=== PATIENT | male | born 1935 | race Caucasian/White ===

== ENCOUNTER 2020-10-28 10:35 | Inpatient (IN) | payer MEDICARE ==
[2020-10-28 10:56] LABS: Basophils % (A) 0 %; Eosinophils # (A) 0.1 k/uL (0-0.7); Eosinophils % (A) 1 %; HGB 13.8 gm/dL (13.0-17.5); Lymphocytes # (A) 0.7 k/uL (1.0-4.8); Lymphocytes % (A) 6 %; MCH 32.3 pg (25.0-35.0); MCHC 34.4 g/dL (31.0-37.0); Mean Platelet Volume 7.6; Monocytes # (A) 0.3 k/uL (0-1.0); Monocytes % (A) 3 %; Neutrophils # (A) 11.1 k/uL (1.3-7.7); Neutrophils % (A) 90 %; Platelet Count 157 k/uL (150-450); RBC 4.26 m/uL (4.30-5.90); RDW 12.5 % (11.5-15.5); WBC 12.3 k/uL (3.8-10.6)
--- NOTE | 2020-10-28 11:07 | XR ---
EXAMINATION TYPE: XR chest 2V DATE OF EXAM: 10/28/2020 COMPARISON: None INDICATION: Cough, pain TECHNIQUE: Frontal and lateral views of the chest are obtained. FINDINGS: The heart size is borderline in size. The pulmonary vasculature is normal. There is a posterior infiltrate likely on the left. Upper lung bhakta appear clear. IMPRESSION: 1. Posterior infiltrate most likely on the left. 2. Mild cardiomegaly
[2020-10-28 11:12] LABS: Albumin 4.1 g/dL (3.5-5.0); Calcium 8.8 mg/dL (8.4-10.2); Potassium 4.9 mmol/L (3.5-5.1); Total Bilirubin 1.5 mg/dL (0.2-1.3); Total Protein 7.2 g/dL (6.3-8.2)
[2020-10-28] MEDS ORDERED: AZITHROMYCIN 500 MG in SODIUM CHLORIDE 0.9% 250 ML IVPB STA (11:54)
[2020-10-28] MEDS ORDERED: cefTRIAXone IN SWFI 1,000 MG/10 ML SYRINGE IVP STA (11:54)
--- NOTE | 2020-10-28 12:12 | ED ---
SOB HPI - General Chief Complaint: Shortness of Breath Stated Complaint: YODIT Source: patient, EMS Mode of arrival: EMS Limitations: no limitations - History of Present Illness Initial Comments: The patient is an 84-year-old male with past medical history of diabetes, coronary artery disease with bypass, paroxysmal A. fib on Ahlquist who presents emergency Department with reported shortness of breath. The patient states for the past couple of days he's had a nonproductive cough. He had difficulty sleeping tonight. Awoke around 3 AM and was short of breath. He states he d rove himself to [facility]. The patient reportedly had an elevated troponin level and was found to have a possible exacerbation of heart failure. They did give him some Lasix and nitro. His oxygenation upon initial presentation was 80 which improved to 93% on 3 L. Patient is normally does not require oxygen. Denies having any chest pain. No fevers or chills. Cough has continued to be nonproductive. No sick contacts with similar symptoms. Patient was cold and negative at [facility]. No other alleviating, precipitating or modifying factors - Related Data Home Medications Medication Instructions Recorded Confirmed Apixaban [Eliquis] 5 mg PO BID 10/28/20 10/28/20 Furosemide [Lasix] 20 mg PO DAILY 10/28/20 10/28/20 Losartan/Hydrochlorothiazide 1 tab PO DAILY 10/28/20 10/28/20 [Losartan-Hctz 100-25 mg Tab] Metoprolol Tartrate [Lopressor] 50 mg PO BID 10/28/20 10/28/20 Multivitamins, Thera [Multivitamin 1 tab PO DAILY 10/28/20 10/28/20 (formulary)] Simvastatin [Zocor] 20 mg PO HS 10/28/20 10/28/20 amLODIPine [Norvasc] 5 mg PO DAILY 10/28/20 10/28/20 glipiZIDE [Glucotrol] 10 mg PO AC-BRKFST 10/28/20 10/28/20 Allergies Allergy/AdvReac Type Severity Reaction Status Date / Time No Known Allergies Allergy Verified 10/28/20 12:22 Review of Systems ROS Statement: Those systems with pertinent positive or pertinent negative responses have been documented in the HPI. ROS Other: All systems not noted in ROS Statement are negative. Past Medical History Past Medical History: Diabetes Mellitus History of Any Multi-Drug Resistant Organisms: None Reported Past Surgical History: No Surgical Hx Reported Past Psychological History: No Psychological Hx Reported Smoking Status: Never smoker Past Alcohol Use History: None Reported Past Drug Use History: None Reported General Exam Limitations: no limitations Course Vital Signs 10/28/20 10/28/20 10:37 12:35 Temperature 97.0 F L Pulse Rate 59 L 89 Respiratory 16 16 Rate Blood Pressure 155/58 145/65 O2 Sat by Pulse 97 98 Oximetry Procedures - [place] Protocol (Time Out) Nurse: Laurence Lora Medical Decision Making - Medical Decision Making Upon arrival the patient is placed into room 11. I did review the records from [facility]. I did repeat my own several laboratory studies which demonstrates a sodium of 131. Creatinine 1.96. Glucose 398. Troponin 0.069. BNP 1670. X-ray does demonstrate a posterior infiltrate most likely on the left. I did discuss results the patient. I did cover him with a dose of Rocep hin and azithromycin because of his infiltrate. I did recommend hospital admission in order to trend his troponins which the patient agreed to. I will consult cardiology. Patient agreed to this. I will continue his Ahlquist. Patient remained in stable condition awaiting a bed on the floor - Lab Data Result diagrams: 10/28/20 10:48 10/28/20 10:48 Lab Results 10/28/20 10/28/20 10/28/20 Range/Units 10:48 10:48 10:48 WBC 12.3 H (3.8-10.6) k/uL RBC 4.26 L (4.30-5.90) m/uL Hgb 13.8 (13.0-17.5) gm/dL Hct 40.0 (39.0-53.0) % MCV 94.0 (80.0-100.0) fL MCH 32.3 (25.0-35.0) pg MCHC 34.4 (31.0-37.0) g/dL RDW 12.5 (11.5-15.5) % Plt Count 157 (150-450) k/uL MPV 7.6 Neutrophils % 90 % Lymphocytes % 6 % Monocytes % 3 % Eosinophils % 1 % Basophils % 0 % Neutrophils # 11.1 H (1.3-7.7) k/uL Lymphocytes # 0.7 L (1.0-4.8) k/uL Monocytes # 0.3 (0-1.0) k/uL Eosinophils # 0.1 (0-0.7) k/uL Basophils # 0.0 (0-0.2) k/uL Sodium 131 L (137-145) mmol/L Potassium 4.9 (3.5-5.1) mmol/L Chloride 101 (98-107) mmol/L Carbon Dioxide 20 L (22-30) mmol/L Anion Gap 10 mmol/L BUN 37 H (9-20) mg/dL Creatinine 1.96 H (0.66-1.25) mg/dL Est GFR (CKD-EPI)AfAm 35 (>60 ml/min/1.73 sqM) Est GFR (CKD-EPI)NonAf 31 (>60 ml/min/1.73 sqM) Glucose 398 H (74-99) mg/dL Calcium 8.8 (8.4-10.2) mg/dL Total Bilirubin 1.5 H (0.2-1.3) mg/dL AST 35 (17-59) U/L ALT 36 (4-49) U/L Alkaline Phosphatase 96 (38-126) U/L Troponin I 0.069 H* (0.000-0.034) ng/mL NT-Pro-B Natriuret Pep pg/mL Total Protein 7.2 (6.3-8.2) g/dL Albumin 4.1 (3.5-5.0) g/dL 10/28/20 Range/Units 10:48 WBC (3.8-10.6) k/uL RBC (4.30-5.90) m/uL Hgb (13.0-17.5) gm/dL Hct (39.0-53.0) % MCV (80.0-100.0) fL MCH (25.0-35.0) pg MCHC (31.0-37.0) g/dL RDW (11.5-15.5) % Plt Count (150-450) k/uL MPV Neutrophils % % Lymphocytes % % Monocytes % % Eosinophils % % Basophils % % Neutrophils # (1.3-7.7) k/uL Lymphocytes # (1.0-4.8) k/uL Monocytes # (0-1.0) k/uL Eosinophils # (0-0.7) k/uL Basophils # (0-0.2) k/uL Sodium (137-145) mmol/L Potassium (3.5-5.1) mmol/L Chloride (98-107) mmol/L Carbon Dioxide (22-30) mmol/L Anion Gap mmol/L BUN (9-20) mg/dL Creatinine (0.66-1.25) mg/dL Est GFR (CKD-EPI)AfAm (>60 ml/min/1.73 sqM) Est GFR (CKD-EPI)NonAf (>60 ml/min/1.73 sqM) Glucose (74-99) mg/dL Calcium (8.4-10.2) mg/dL Total Bilirubin (0.2-1.3) mg/dL AST (17-59) U/L ALT (4-49) U/L Alkaline Phosphatase (38-126) U/L Troponin I (0.000-0.034) ng/mL NT-Pro-B Natriuret Pep 1670 pg/mL Total Protein (6.3-8.2) g/dL Albumin (3.5-5.0) g/dL - EKG Data EKG Comments: EKG demonstrates a ventricularly paced rhythm. Rate of 60. Pacemaker captures appropriately. QRS 26. QTC of 522. Negative for sgarbossa criteria. Disposition Clinical Impression: Hypoxic, NSTEMI (non-ST elevated myocardial infarction), CAP (community acquired pneumonia), Congestive heart failure Disposition: ADMITTED IP TO THIS HOSP Condition: Stable Is patient prescribed a controlled substance at d/c from ED?: No Decision to Admit Reason: Admit from EC Decision Date: 10/28/20 Decision Time: 12:12
[2020-10-28] MEDS ORDERED: NALOXONE 0.4 MG/ML 1 ML VIAL IV PRN (12:14)
[2020-10-28] MEDS ORDERED: LOSARTAN-HCTZ 50-12.5 MG 1 EACH TAB PO SCH (15:00)
--- NOTE | 2020-10-28 15:01 | P.CRDCN ---
History of Present Illness History of present illness: HISTORY OF PRESENTING ILLNESS This is a pleasant 84-year-old male past medical history significant for paroxysmal atrial fibrillation on long-term anticoagulation status post cardioversion 2016, permanent pacemaker implantation ([employer]) secondary to complete heart block, coronary artery disease s/p 2V bypass grafting with AMBRIZ to LAD and radial artery to D1 2000, diabetes mellitus, hypertension, dyslipidemia, ischemic cardiomyopathy and chronic systolic heart failure. He fo llows in the office with Dr. Gallardo. We have been asked to see in consultation for elevated troponin. He states he woke up around 0300 with a dry cough and wheezing. It was persistent and bothersome until around 0500 he couldn't get any sleep so he decided to go to ER. He initially went to [facility] where he was COVID tested and it was negative. Labwork and xray revealed a mild troponin elevation and possible pneumonia prompting transfer here for further evaluation. DIAGNOSTICS EKG reveals ventricular paced rhythm. Chest xray posterior left infiltrate and cardiomegaly. Laboratory reviewed, CBC 12.3, hemoglobin 13.8, platelets 157, sodium 131, potassium 4.9, creatinine 1.96, troponin 0.069, proBNP 1670. Current cardiac medications include Eliquis 5 mg twice a day, Lasix 20 mg daily, losartan/hydrochlorothiazide 100/25 mg daily, Lopressor 50 mg twice a day, simvastatin 20 mg at bedtime and amlodipine 5 mg daily. Most recent stress test in the office August 2020 was negative for reversible cardiac ischemia with ejection fraction of 55%. Most recent echo in the office 2017 revealed impaired LV systolic function with ejection fraction 40%, hypokinesia of the inferior wall from the mid wall to the apex, hypokinesia of the anterior septum, mild to moderate TR, mild pulmonary h ypertension and mild to moderate MR. REVIEW OF SYSTEMS At the time of my exam: CONSTITUTIONAL: Denies fever or chills. CARDIOVASCULAR: Denies chest pain, shortness of breath, orthopnea, PND or palpit ations. RESPIRATORY: Complains of cough. GASTROINTESTINAL: Denies abdominal pain, diarrhea, constipation, nausea or vomiting. MUSCULOSKELETAL: Denies myalgias. NEUROLOGIC: Denies numbness, tingling or weakness. ENDOCRINE: Complains of fatigue. Denies weight change, polydipsia or polyurina. GENITOURINARY: Denies burning, hematuria or urgency with micturation. HEMATOLOGIC: Denies history of anemia or bleeding. PHYSICAL EXAMINATION Blood pressure 145/65 heart rate 89 afebrile and maintaining oxygen saturation on nasal cannula. CONSTITUTIONAL: No apparent distress. HEENT: Head is normocephalic. Pupils are equal, round. Sclerae anicteric. Mucous membranes of the mouth are moist. No JVD. No carotid bruit. CHEST EXAMINATION: Bibasilar rales No chest wall tenderness is noted on palpation or with deep breathing. HEART EXAMINATION: Regular rate and rhythm. S1, S2 heard. Systolic ejection mu rmur at the left sternal border, no gallops or rub. ABDOMEN: Soft, nontender. Positive bowel sounds. EXTREMITIES: 2+ peripheral pulses, no lower extremity edema and no calf tenderness. NEUROLOGIC EXAMINATION: Patient is awake, alert and oriented x3. ASSESSMENT Pneumonia Leukocytosis Troponin elevation, does not appear to be due to primary myocardial injury. Acute kidney injury Hypertension Mild acute exacerbation of chronic systolic heart failure Ischemic cardiomyopathy Complete heart block s/p permanent pacemaker implantation Coronary artery disease s/p bypass grafting 2000 Dyslipidemia Diabetes mellitus Paroxysmal atrial fibrillation on eliquis, currently in sinus rhythm PLAN Obtain 2D echocardiogram and doppler study to assess cardiac structure and function. Hold losartan/hctz pending repeat renal function tomorrow. Continue oral diuretics. Further recommendations to follow based on clinical course. Thank you kindly for this consultation. Nurse Practitioner note has been reviewed, I agree with a documented findings and plan of care. Patient was seen and examined. Past Medical History Past Medical History: Diabetes Mellitus History of Any Multi-Drug Resistant Organisms: None Reported Past Surgical History: No Surgical Hx Reported Past Psychological History: No Psychological Hx Reported Smoking Status: Never smoker Past Alcohol Use History: None Reported Past Drug Use History: None Reported Medications and Allergies Home Medications Medication Instructions Recorded Confirmed Type Apixaban [Eliquis] 5 mg PO BID 10/28/20 10/28/20 History Furosemide [Lasix] 20 mg PO DAILY 10/28/20 10/28/20 History Losartan/Hydrochlorothiazide 1 tab PO DAILY 10/28/20 10/28/20 History [Losartan-Hctz 100-25 mg Tab] Metoprolol Tartrate [Lopressor] 50 mg PO BID 10/28/20 10/28/20 History Multivitamins, Thera [Multivitamin 1 tab PO DAILY 10/28/20 10/28/20 History (formulary)] Simvastatin [Zocor] 20 mg PO HS 10/28/20 10/28/20 History amLODIPine [Norvasc] 5 mg PO DAILY 10/28/20 10/28/20 History glipiZIDE [Glucotrol] 10 mg PO AC-BRKFST 10/28/20 10/28/20 History Allergies Allergy/AdvReac Type Severity Reaction Status Date / Time No Known Allergies Allergy Verified 10/28/20 12:22 Physical Exam Vitals: Vital Signs Temp Pulse Resp BP Pulse Ox 10/28/20 12:35 89 16 145/65 98 10/28/20 10:37 97.0 F L 59 L 16 155/58 97 Intake and Output 10/27/20 10/28/20 10/28/20 22:59 06:59 14:59 Other: Weight 81.647 kg Results 10/28/20 10:48 10/28/20 10:48 Cardiac Enzymes 10/28/20 10/28/20 Range/Units 10:48 10:48 AST 35 (17-59) U/L Troponin I 0.069 H* (0.000-0.034) ng/mL CBC 10/28/20 Range/Units 10:48 WBC 12.3 H (3.8-10.6) k/uL RBC 4.26 L (4.30-5.90) m/uL Hgb 13.8 (13.0-17.5) gm/dL Hct 40.0 (39.0-53.0) % Plt Count 157 (150-450) k/uL Comprehensive Metabolic Panel 10/28/20 Range/Units 10:48 Sodium 131 L (137-145) mmol/L Potassium 4.9 (3.5-5.1) mmol/L Chloride 101 (98-107) mmol/L Carbon Dioxide 20 L (22-30) mmol/L BUN 37 H (9-20) mg/dL Creatinine 1.96 H (0.66-1.25) mg/dL Glucose 398 H (74-99) mg/dL Calcium 8.8 (8.4-10.2) mg/dL AST 35 (17-59) U/L ALT 36 (4-49) U/L Alkaline Phosphatase 96 (38-126) U/L Total Protein 7.2 (6.3-8.2) g/dL Albumin 4.1 (3.5-5.0) g/dL Current Medications Generic Name Dose Route Start Last Admin Trade Name Freq PRN Reason Stop Dose Admin Naloxone HCl 0.2 mg 10/28/20 12:14 Naloxone 0.4 Mg/Ml 1 Ml Vial IV Q2M PRN Opioid Reversal Intake and Output 10/27/20 10/28/20 10/28/20 22:59 06:59 14:59 Other: Weight 81.647 kg Patient Weight 10/29/20 06:59 Weight 81.647 kg 10/28/20 10:48 10/28/20 10:48
[2020-10-28] MEDS: amLODIPine 5 MG TAB PO SCH (15:25)
[2020-10-28] MEDS: FUROSEMIDE 20 MG TAB PO SCH (15:25)
--- NOTE | 2020-10-28 18:00 | ECHOF ---
Referral Reason:sob, trop elev MEASUREMENTS -------- HEIGHT: 182.9 cm WEIGHT: 81.6 kg BP: 145/65 RVIDd: 3.4 cm (< 3.3) IVSd: 1.1 cm (0.6 - 1.1) LVIDd: 5.3 cm (3.9 - 5.3) LVPWd: 1.2 cm (0.6 - 1.1) IVSs: 1.9 cm LVIDs: 2.9 cm LVPWs: 1.9 cm LA Diam: 4.3 cm (2.7 - 3.8) LAESV Index (A-L): 28.34 ml/m Ao Diam: 3.7 cm (2.0 - 3.7) AV Cusp: 2.0 cm (1.5 - 2.6) MV EXCURSION: 19.089 mm (> 18.000) MV EF SLOPE: 72 mm/s (70 - 150) EPSS: 0.9 cm RAP: 5.00 mmHg RVSP: 31.23 mmHg FINDINGS -------- This was a technically adequate study. The left ventricular size is normal. There is borderline concentric left ventricular hypertrophy. Overall left ventricular systolic function is normal with, an EF between 60 - 65 %. The right ventricle is mildly enlarged. Normal LA size by volume 22+/-6 ml/m2. The right atrium is normal in size. Interatrial and interventricular septum intact. The aortic valve is trileaflet and appears structurally normal. The mitral valve leaflets are mildly thickened. Mild mitral annular calcification present. Mild tricuspid regurgitation present. Right ventricular systolic pressure is normal at < 35 mmHg. Trace/mild (physiologic) pulmonic regurgitation. The aortic root size is normal. Normal inferior vena cava with normal inspiratory collapse consistent with estimated right atrial pre ssure of 5 mmHg. There is no pericardial effusion. CONCLUSIONS -------- 1. The left ventricular size is normal. 2. There is borderline concentric left ventricular hypertrophy. 3. Overall left ventricular systolic function is normal with, an EF between 60 - 65 %. 4. The right ventricle is mildly enlarged. 5. Normal LA size by volume 22+/-6 ml/m2. 6. The aortic valve is trileaflet and appears structurally normal. 7. The mitral valve leaflets are mildly thickened. 8. Mild mitral annular calcification present. 9. Mild tricuspid regurgitation present. 10. Trace/mild (physiologic) pulmonic regurgitation. 11. There is no pericardial effusion. STARCHMAKER: Yeny Arriaza RDCS
[2020-10-28 21:17] LABS: Glucose,Whole Blood 563 mg/dL (75-99)
[2020-10-28 21:17] LABS: Glucose,Whole Blood 540 mg/dL (75-99)
[2020-10-28] MEDS: ATORVASTATIN 10 MG TAB PO SCH (21:33)
[2020-10-28] MEDS: APIXABAN 5 MG TAB PO SCH (21:33)
[2020-10-28] MEDS: METOPROLOL TARTRATE 50 MG TAB PO SCH (21:33)
[2020-10-28] MEDS: INSULIN REGULAR 100 UNIT in SODIUM CHLORIDE 0.9% 100 ML IV SCH (23:22)
[2020-10-28 23:33] LABS: Glucose,Whole Blood 515 mg/dL (75-99)
[2020-10-29 00:04] LABS: Glucose,Whole Blood 458 mg/dL (75-99)
[2020-10-29 00:32] LABS: Glucose,Whole Blood 331 mg/dL (75-99)
[2020-10-29 01:15] LABS: Glucose,Whole Blood 229 mg/dL (75-99)
[2020-10-29 02:44] LABS: Glucose,Whole Blood 128 mg/dL (75-99)
[2020-10-29 03:06] LABS: Glucose,Whole Blood 93 mg/dL (75-99)
[2020-10-29 04:16] LABS: Glucose,Whole Blood 166 mg/dL (75-99)
[2020-10-29 05:33] LABS: Glucose,Whole Blood 197 mg/dL (75-99)
[2020-10-29 06:00] LABS: Glucose,Whole Blood 245 mg/dL (75-99)
[2020-10-29 07:05] LABS: Glucose,Whole Blood 254 mg/dL (75-99)
[2020-10-29 08:05] LABS: Glucose,Whole Blood 273 mg/dL (75-99)
[2020-10-29 08:20] LABS: Potassium 4.1 mmol/L (3.5-5.1)
[2020-10-29 08:33] LABS: Basophils % (A) 0 %; Eosinophils % (A) 0 %; HGB 12.4 gm/dL (13.0-17.5); Lymphocytes # (A) 1.1 k/uL (1.0-4.8); Lymphocytes % (A) 7 %; MCH 33.1 pg (25.0-35.0); MCHC 35.3 g/dL (31.0-37.0); MCV 93.6 fL (80.0-100.0); Monocytes # (A) 0.6 k/uL (0-1.0); Monocytes % (A) 4 %; Neutrophils # (A) 13.1 k/uL (1.3-7.7); Neutrophils % (A) 88 %; Platelet Count 158 k/uL (150-450); RBC 3.74 m/uL (4.30-5.90); RDW 12.6 % (11.5-15.5); WBC 14.9 k/uL (3.8-10.6)
[2020-10-29 09:03] LABS: Glucose,Whole Blood 382 mg/dL (75-99)
[2020-10-29] MEDS: FUROSEMIDE 20 MG TAB PO SCH (09:33)
[2020-10-29] MEDS: amLODIPine 5 MG TAB PO SCH (09:33)
[2020-10-29] MEDS: APIXABAN 5 MG TAB PO SCH ×2 (09:33→21:02)
[2020-10-29] MEDS: METOPROLOL TARTRATE 50 MG TAB PO SCH ×2 (09:33→21:02)
--- NOTE | 2020-10-29 10:57 | P.PN ---
Subjective HISTORY OF PRESENTING ILLNESS This is a pleasant 84-year-old male past medical history significant for paroxysmal atrial fibrillation on long-term anticoagulation status post cardioversion 2016, permanent pacemaker implantation ([employer]) secondary to complete heart block, coronary artery disease s/p 2V bypass grafting with AMBRIZ to LAD and radial artery to D1 2000, diabetes mellitus, hypertension, dyslipidemia, ischemic cardiomyopathy and chronic systolic heart failure. He follows in the office with Dr. Gallardo. He is seen and examined sitting up in bed in no acute distress. She continues to have a mild dry cough however this impr arcelia since admission. He denies any worsening or ongoing shortness of breath. He has no chest pain, dizziness or palpitations. Echocardiogram obtained reveals preserved LV systolic function with ejection fraction 60-65%. Blood pressure 120/58 heart rate 61 afebrile maintaining oxygen saturation on nasal cannula. Laboratory data reviewed, WBC 14.9, hemoglobin 12.4, platelets 158, sodium 133, potassium 4.1, creatinine 2.31. Blood sugars have been elevated and he has been initiated on an insulin infusion per the primary care team. PHYSICAL EXAMINATION CONSTITUTIONAL: No apparent distress. HEENT: Head is normocephalic. Pupils are equal, round. Sclerae anicteric. Mucous membranes of the mouth are moist. No JVD. No carotid bruit. CHEST EXAMINATION: Bibasilar rales No chest wall tenderness is noted on palpation or with deep breathing. HEART EXAMINATION: Regular rate and rhythm. S1, S2 heard. Systolic ejection murmur at the left sternal border, no gallops or rub. EXTREMITIES: 2+ peripheral pulses, no lower extremity edema and no calf tenderness. ASSESSMENT Pneumonia Leukocytosis Troponin elevation, does not appear to be due to primary myocardial injury. Acute kidney injury Hypertension Mild acute exacerbation of chronic systolic heart failure Ischemic cardiomyopathy Complete heart block s/p permanent pacemaker implantation Coronary artery disease s/p bypass grafting 2000 Dyslipidemia Diabetes mellitus Paroxysmal atrial fibrillation on eliquis, currently in sinus rhythm PLAN Repeat chest x-ray to reevaluate infiltrate in the lungs. Follow-up renal function in the morning. Nurse Practitioner note has been reviewed, I agree with a documented findings and plan of care. Patient was seen and examined. Objective - Vital Signs Vital signs: Vital Signs Temp 98.1 F 10/29/20 00:00 Pulse 61 10/29/20 04:00 Resp 20 10/29/20 04:00 BP 120/58 10/29/20 04:00 Pulse Ox 95 10/29/20 04:00 Intake & Output 10/28/20 10/29/20 10/29/20 18:59 06:59 18:59 Intake Total 56.560 18.954 Output Total 400 Balance -343.440 18.954 Weight 81.647 kg 85.3 kg Intake: Intake, IV Titration 56.560 18.954 Amount Insulin Regular 100 unit 56.560 18.954 In Sodium Chloride 0.9% 100 ml @ Titrate IV .Q0M [facility] Rx#:[id number] Output: Urine 400 - Labs CBC & Chem 7: 10/29/20 07:29 10/29/20 07:29 Labs: Abnormal Lab Results - Last 24 Hours (Table) 10/28/20 10/28/20 10/28/20 Range/Units 10:48 10:48 10:48 WBC 12.3 H (3.8-10.6) k/uL RBC 4.26 L (4.30-5.90) m/uL Hgb (13.0-17.5) gm/dL Hct (39.0-53.0) % Neutrophils # 11.1 H (1.3-7.7) k/uL Lymphocytes # 0.7 L (1.0-4.8) k/uL Sodium 131 L (137-145) mmol/L Carbon Dioxide 20 L (22-30) mmol/L BUN 37 H (9-20) mg/dL Creatinine 1.96 H (0.66-1.25) mg/dL Glucose 398 H (74-99) mg/dL POC Glucose (mg/dL) (75-99) mg/dL Total Bilirubin 1.5 H (0.2-1.3) mg/dL Troponin I 0.069 H* (0.000-0.034) ng/mL Procalcitonin (0.02-0.09) ng/mL 10/28/20 10/28/20 10/28/20 Range/Units 10:48 15:18 18:32 WBC (3.8-10.6) k/uL RBC (4.30-5.90) m/uL Hgb (13.0-17.5) gm/dL Hct (39.0-53.0) % Neutrophils # (1.3-7.7) k/uL Lymphocytes # (1.0-4.8) k/uL Sodium (137-145) mmol/L Carbon Dioxide (22-30) mmol/L BUN (9-20) mg/dL Creatinine (0.66-1.25) mg/dL Glucose (74-99) mg/dL POC Glucose (mg/dL) (75-99) mg/dL Total Bilirubin (0.2-1.3) mg/dL Troponin I 0.061 H* 0.068 H* (0.000-0.034) ng/mL Procalcitonin 0.12 H (0.02-0.09) ng/mL 10/28/20 10/28/20 10/28/20 Range/Units 21:06 21:08 23:22 WBC (3.8-10.6) k/uL RBC (4.30-5.90) m/uL Hgb (13.0-17.5) gm/dL Hct (39.0-53.0) % Neutrophils # (1.3-7.7) k/uL Lymphocytes # (1.0-4.8) k/uL Sodium (137-145) mmol/L Carbon Dioxide (22-30) mmol/L BUN (9-20) mg/dL Creatinine (0.66-1.25) mg/dL Glucose (74-99) mg/dL POC Glucose (mg/dL) 563 H 540 H 515 H (75-99) mg/dL Total Bilirubin (0.2-1.3) mg/dL Troponin I (0.000-0.034) ng/mL Procalcitonin (0.02-0.09) ng/mL 10/29/20 10/29/20 10/29/20 Range/Units 00:01 00:30 01:02 WBC (3.8-10.6) k/uL RBC (4.30-5.90) m/uL Hgb (13.0-17.5) gm/dL Hct (39.0-53.0) % Neutrophils # (1.3-7.7) k/uL Lymphocytes # (1.0-4.8) k/uL Sodium (137-145) mmol/L Carbon Dioxide (22-30) mmol/L BUN (9-20) mg/dL Creatinine (0.66-1.25) mg/dL Glucose (74-99) mg/dL POC Glucose (mg/dL) 458 H 331 H 229 H (75-99) mg/dL Total Bilirubin (0.2-1.3) mg/dL Troponin I (0.000-0.034) ng/mL Procalcitonin (0.02-0.09) ng/mL 10/29/20 10/29/20 10/29/20 Range/Units 02:15 04:12 05:12 WBC (3.8-10.6) k/uL RBC (4.30-5.90) m/uL Hgb (13.0-17.5) gm/dL Hct (39.0-53.0) % Neutrophils # (1.3-7.7) k/uL Lymphocytes # (1.0-4.8) k/uL Sodium (137-145) mmol/L Carbon Dioxide (22-30) mmol/L BUN (9-20) mg/dL Creatinine (0.66-1.25) mg/dL Glucose (74-99) mg/dL POC Glucose (mg/dL) 128 H 166 H 197 H (75-99) mg/dL Total Bilirubin (0.2-1.3) mg/dL Troponin I (0.000-0.034) ng/mL Procalcitonin (0.02-0.09) ng/mL 10/29/20 10/29/20 10/29/20 Range/Units 05:54 07:02 07:29 WBC 14.9 H (3.8-10.6) k/uL RBC 3.74 L (4.30-5.90) m/uL Hgb 12.4 L (13.0-17.5) gm/dL Hct 35.0 L (39.0-53.0) % Neutrophils # 13.1 H (1.3-7.7) k/uL Lymphocytes # (1.0-4.8) k/uL Sodium (137-145) mmol/L Carbon Dioxide (22-30) mmol/L BUN (9-20) mg/dL Creatinine (0.66-1.25) mg/dL Glucose (74-99) mg/dL POC Glucose (mg/dL) 245 H 254 H (75-99) mg/dL Total Bilirubin (0.2-1.3) mg/dL Troponin I (0.000-0.034) ng/mL Procalcitonin (0.02-0.09) ng/mL 10/29/20 10/29/20 10/29/20 Range/Units 07:29 08:01 09:01 WBC (3.8-10.6) k/uL RBC (4.30-5.90) m/uL Hgb (13.0-17.5) gm/dL Hct (39.0-53.0) % Neutrophils # (1.3-7.7) k/uL Lymphocytes # (1.0-4.8) k/uL Sodium 133 L (137-145) mmol/L Carbon Dioxide (22-30) mmol/L BUN 57 H (9-20) mg/dL Creatinine 2.31 H (0.66-1.25) mg/dL Glucose 237 H (74-99) mg/dL POC Glucose (mg/dL) 273 H 382 H (75-99) mg/dL Total Bilirubin (0.2-1.3) mg/dL Troponin I (0.000-0.034) ng/mL Procalcitonin (0.02-0.09) ng/mL
[2020-10-29 11:55] LABS: Glucose,Whole Blood 164 mg/dL (75-99)
[2020-10-29] MEDS: INSULIN REGULAR 100 UNIT in SODIUM CHLORIDE 0.9% 100 ML IV SCH (13:01)
--- NOTE | 2020-10-29 13:03 | XR ---
EXAMINATION TYPE: XR chest 2V DATE OF EXAM: 10/29/2020 COMPARISON: Chest x-ray from yesterday. HISTORY: Cough. TECHNIQUE: Frontal and lateral views of the chest are obtained. FINDINGS: There is chronic parenchymal change with improved retrocardiac opacity seen best on latera l view. Persistent small tiny right greater than left pleural effusions. Overlying sternal wires and mediastinal clips. Persistent cardiomegaly with dual lead pacemaker. Osseous structures remain demine ralized. IMPRESSION: Chronic changes and cardiomegaly with improving left lower lobe acute infiltrate. Stabl e small to tiny bilateral pleural effusions. No new infiltrate.
[2020-10-29 15:17] LABS: Glucose,Whole Blood 187 mg/dL (75-99)
[2020-10-29 17:13] LABS: Glucose,Whole Blood 221 mg/dL (75-99)
[2020-10-29] MEDS: INSULIN ASPART (NovoLOG) 100 UNIT/ML VIAL SQ SCH ×2 (17:52→21:03)
[2020-10-29 20:23] LABS: Glucose,Whole Blood 300 mg/dL (75-99)
[2020-10-29] MEDS: ATORVASTATIN 10 MG TAB PO SCH (21:03)
--- NOTE | 2020-10-29 22:06 | P.HPIM ---
History of Present Illness H&P Date: 10/29/20 Chief Complaint: short of breath History of presenting complaint: This is a pleasant 84-year-old patient of Dr. Shoaib Coreas. Chronic stable medical conditions include atrial fibrillation diabetes, coronary artery disease with bypass and a permanent pacemaker. Patient's last to 3 days been having a dry cough with wheezing. Patient woke up around 3 AM short of breath and [place] to [facility]. He'll is some bump in troponin and was felt to be in CHF patient is given Lasix and nitro his pulse ox was 80% which improved to 93% on 3 L. And he was sent down here for further workup. Denies any fever and chills. No edema. No chest pain. Appetite is fair. Review of systems: GEN.: Tired EYES: None HEENT: None NECK: None RESPIRATORY: As above CARDIOVASCULAR: None GASTROINTESTINAL: None GENITOURINARY: None MUSCULOSKELETAL: None LYMPHATICS: None HEMATOLOGICAL: None PSYCHIATRY: None NEUROLOGICAL: None Past medical history to include: Coronary artery disease with bypass, atrial fibrillation, diabetes, pacemaker Social history: Does not smoke or drink alcohol. Lives alone. Retired system validation engineer. For [employer] Physical examination: VITAL SIGNS: 97, 59, 16, 155/58, 97% on 3 L GENERAL: BMI 25.5, sitting up in bed, bit tired. EYES: Pupils equal. Conjunctiva normal. HEENT: External appearance of nose and ears normal, oral cavity grossly normal. NECK: JVD not raised; masses not palpable. HEART: First and second heart sounds are normal; no edema. LUNGS: Respiratory rate increased, decreased breath sounds. ABDOMEN: Soft, nontender, liver spleen not palpable, no masses palpable. PSYCH: Alert and oriented x3; mood and affect normal. NEUROLOGICAL: Cranial nerves grossly intact; no facial asymmetry, power and sensation grossly intact. LYMPHATICS: No lymph nodes palpable in the axilla and neck INVESTIGATIONS, reviewed in the clinical context: White count 12.3 hemoglobin 13.8 platelets 157 potassium 4.9 creatinine 1.96 Blood glucose 398 Accu-Cheks 540, 5.5 Troponin I 0.069, 0.061, 0.068 ProBNP 1670 Pro-calcitonin 0.12 EKG tracing personally reviewed by me-ventricular paced rhythm Chest x-ray film personally reviewed by me-shows infiltrates 2-D echocardiogram-EF 60-65% Assessment: -Pneumonia, suspect gram-negative orgasm -Coronary artery disease with a prior history of bypass -Paroxysmal atrial fibrillation, chronically on anticoagulation -Diabetes mellitus type 2 on oral hypoglycemic, uncontrolled with hyperglycemia -Troponin leak in the setting of chronic kidney disease. Doubt acute coronary syndrome -Suspect underlying chronic kidney disease -Doubt acute congestive heart failure. Plan: Patient be started on IV Zithromax and ceftriaxone. Home medications be continued. Oral hypoglycemics were held patient's pleural on a Regular Insulin drip. Cardiology was consulted. Care was discussed with the patient. We will check renal ultrasound, and a UA. Past Medical History Past Medical History: Atrial Fibrillation, Diabetes Mellitus History of Any Multi-Drug Resistant Organisms: None Reported Past Surgical History: Coronary Bypass/CABG, Pacemaker Past Anesthesia/Blood Transfusion Reactions: No Reported Reaction Type of Cardiac Device: Permanent Pacemaker Device Placement Date:: about 3 years ago Past Psychological History: No Psychological Hx Reported Smoking Status: Never smoker Past Alcohol Use History: None Reported Past Drug Use History: None Reported - Past Family History Mother Family Medical History: Myocardial Infarction ([place]) Father Family Medical History: Myocardial Infarction ([place]) Medications and Allergies Home Medications Medication Instructions Recorded Confirmed Type Apixaban [Eliquis] 5 mg PO BID 10/28/20 10/28/20 History Furosemide [Lasix] 20 mg PO DAILY 10/28/20 10/28/20 History Losartan/Hydrochlorothiazide 1 tab PO DAILY 10/28/20 10/28/20 History [Losartan-Hctz 100-25 mg Tab] Metoprolol Tartrate [Lopressor] 50 mg PO BID 10/28/20 10/28/20 History Multivitamins, Thera [Multivitamin 1 tab PO DAILY 10/28/20 10/28/20 History (formulary)] Simvastatin [Zocor] 20 mg PO HS 10/28/20 10/28/20 History amLODIPine [Norvasc] 5 mg PO DAILY 10/28/20 10/28/20 History glipiZIDE [Glucotrol] 10 mg PO AC-BRKFST 10/28/20 10/28/20 History Allergies Allergy/AdvReac Type Severity Reaction Status Date / Time No Known Allergies Allergy Verified 10/28/20 12:22 Physical Exam Vitals: Vital Signs Temp Pulse Pulse Resp BP BP Pulse Ox 10/29/20 04:00 61 20 120/58 95 10/29/20 01:39 62 18 10/29/20 00:00 98.1 F 62 18 149/50 95 10/28/20 20:00 98.3 F 60 18 144/65 97 10/28/20 18:10 98.7 F 60 20 152/68 97 10/28/20 12:35 89 16 145/65 98 10/28/20 10:37 97.0 F L 59 L 16 155/58 97 Intake and Output 10/28/20 10/29/20 10/29/20 22:59 06:59 14:59 Intake Total 56.560 18.954 Output Total 400 Balance -343.440 18.954 Intake: Intake, IV Titration 56.560 18.954 Amount Insulin Regular 100 unit 56.560 18.954 In Sodium Chloride 0.9% 100 ml @ Titrate IV .Q0M [facility] Rx#:[id number] Output: Urine 400 Other: Weight 81.647 kg 85.3 kg Results CBC & Chem 7: 10/29/20 07:29 10/29/20 07:29 Labs: Abnormal Lab Results - Last 24 Hours (Table) 10/28/20 10/28/20 10/28/20 Range/Units 10:48 10:48 10:48 WBC 12.3 H (3.8-10.6) k/uL RBC 4.26 L (4.30-5.90) m/uL Hgb (13.0-17.5) gm/dL Hct (39.0-53.0) % Neutrophils # 11.1 H (1.3-7.7) k/uL Lymphocytes # 0.7 L (1.0-4.8) k/uL Sodium 131 L (137-145) mmol/L Carbon Dioxide 20 L (22-30) mmol/L BUN 37 H (9-20) mg/dL Creatinine 1.96 H (0.66-1.25) mg/dL Glucose 398 H (74-99) mg/dL POC Glucose (mg/dL) (75-99) mg/dL Total Bilirubin 1.5 H (0.2-1.3) mg/dL Troponin I 0.069 H* (0.000-0.034) ng/mL Procalcitonin (0.02-0.09) ng/mL 10/28/20 10/28/20 10/28/20 Range/Units 10:48 15:18 18:32 WBC (3.8-10.6) k/uL RBC (4.30-5.90) m/uL Hgb (13.0-17.5) gm/dL Hct (39.0-53.0) % Neutrophils # (1.3-7.7) k/uL Lymphocytes # (1.0-4.8) k/uL Sodium (137-145) mmol/L Carbon Dioxide (22-30) mmol/L BUN (9-20) mg/dL Creatinine (0.66-1.25) mg/dL Glucose (74-99) mg/dL POC Glucose (mg/dL) (75-99) mg/dL Total Bilirubin (0.2-1.3) mg/dL Troponin I 0.061 H* 0.068 H* (0.000-0.034) ng/mL Procalcitonin 0.12 H (0.02-0.09) ng/mL 10/28/20 10/28/20 10/28/20 Range/Units 21:06 21:08 23:22 WBC (3.8-10.6) k/uL RBC (4.30-5.90) m/uL Hgb (13.0-17.5) gm/dL Hct (39.0-53.0) % Neutrophils # (1.3-7.7) k/uL Lymphocytes # (1.0-4.8) k/uL Sodium (137-145) mmol/L Carbon Dioxide (22-30) mmol/L BUN (9-20) mg/dL Creatinine (0.66-1.25) mg/dL Glucose (74-99) mg/dL POC Glucose (mg/dL) 563 H 540 H 515 H (75-99) mg/dL Total Bilirubin (0.2-1.3) mg/dL Troponin I (0.000-0.034) ng/mL Procalcitonin (0.02-0.09) ng/mL 10/29/20 10/29/20 10/29/20 Range/Units 00:01 00:30 01:02 WBC (3.8-10.6) k/uL RBC (4.30-5.90) m/uL Hgb (13.0-17.5) gm/dL Hct (39.0-53.0) % Neutrophils # (1.3-7.7) k/uL Lymphocytes # (1.0-4.8) k/uL Sodium (137-145) mmol/L Carbon Dioxide (22-30) mmol/L BUN (9-20) mg/dL Creatinine (0.66-1.25) mg/dL Glucose (74-99) mg/dL POC Glucose (mg/dL) 458 H 331 H 229 H (75-99) mg/dL Total Bilirubin (0.2-1.3) mg/dL Troponin I (0.000-0.034) ng/mL Procalcitonin (0.02-0.09) ng/mL 10/29/20 10/29/20 10/29/20 Range/Units 02:15 04:12 05:12 WBC (3.8-10.6) k/uL RBC (4.30-5.90) m/uL Hgb (13.0-17.5) gm/dL Hct (39.0-53.0) % Neutrophils # (1.3-7.7) k/uL Lymphocytes # (1.0-4.8) k/uL Sodium (137-145) mmol/L Carbon Dioxide (22-30) mmol/L BUN (9-20) mg/dL Creatinine (0.66-1.25) mg/dL Glucose (74-99) mg/dL POC Glucose (mg/dL) 128 H 166 H 197 H (75-99) mg/dL Total Bilirubin (0.2-1.3) mg/dL Troponin I (0.000-0.034) ng/mL Procalcitonin (0.02-0.09) ng/mL 10/29/20 10/29/20 10/29/20 Range/Units 05:54 07:02 07:29 WBC 14.9 H (3.8-10.6) k/uL RBC 3.74 L (4.30-5.90) m/uL Hgb 12.4 L (13.0-17.5) gm/dL Hct 35.0 L (39.0-53.0) % Neutrophils # 13.1 H (1.3-7.7) k/uL Lymphocytes # (1.0-4.8) k/uL Sodium (137-145) mmol/L Carbon Dioxide (22-30) mmol/L BUN (9-20) mg/dL Creatinine (0.66-1.25) mg/dL Glucose (74-99) mg/dL POC Glucose (mg/dL) 245 H 254 H (75-99) mg/dL Total Bilirubin (0.2-1.3) mg/dL Troponin I (0.000-0.034) ng/mL Procalcitonin (0.02-0.09) ng/mL 10/29/20 10/29/20 10/29/20 Range/Units 07:29 08:01 09:01 WBC (3.8-10.6) k/uL RBC (4.30-5.90) m/uL Hgb (13.0-17.5) gm/dL Hct (39.0-53.0) % Neutrophils # (1.3-7.7) k/uL Lymphocytes # (1.0-4.8) k/uL Sodium 133 L (137-145) mmol/L Carbon Dioxide (22-30) mmol/L BUN 57 H (9-20) mg/dL Creatinine 2.31 H (0.66-1.25) mg/dL Glucose 237 H (74-99) mg/dL POC Glucose (mg/dL) 273 H 382 H (75-99) mg/dL Total Bilirubin (0.2-1.3) mg/dL Troponin I (0.000-0.034) ng/mL Procalcitonin (0.02-0.09) ng/mL Thrombosis Risk Factor Assmnt - Choose All That Apply Each Factor Represents 1 point: Abnormal pulmonary function (COPD) Each Risk Factor Represents 3 Points: Age 75 years or older Thrombosis Risk Factor Assessment Total Risk Factor Score: 4 Thrombosis Risk Factor Assessment Level: Moderate Risk
[2020-10-29] MEDS: AZITHROMYCIN 500 MG TAB PO SCH (23:32)
[2020-10-30 03:23] LABS: Appearance,Urine Clear (Clear); Bilirubin,Urine Negative (Negative); Blood,Urine Negative (Negative); Color,Urine Light Yellow; Glucose,Urine (UA) Negative (Negative); Ketones,Urine Negative (Negative); Leukocyte Esterase,Urine Negative (Negative); Nitrite,Urine Negative (Negative); PH, Urine 5.5 (5.0-8.0); Protein,Urine Negative (Negative); Specific Gravity,Urine 1.014 (1.001-1.035); Urobilinogen,Urine <2.0 mg/dL (<2.0)
[2020-10-30 06:06] LABS: Glucose,Whole Blood 241 mg/dL (75-99)
[2020-10-30] MEDS: INSULIN ASPART (NovoLOG) 100 UNIT/ML VIAL SQ SCH ×4 (06:39→20:41)
--- NOTE | 2020-10-30 08:20 | US ---
EXAMINATION TYPE: US kidneys/renal and bladder DATE OF EXAM: 10/30/2020 COMPARISON: NONE CLINICAL HISTORY: chronic kidney disease. CKD EXAM MEASUREMENTS: Right Kidney: 11.0 x 5.3 x 5.1 cm Left Kidney: 11.2 x 5.5 x 5.1 cm Right Kidney: No evidence of hydro, simple appearing cyst lower pole= 3.2 x 2.0 x 3.1 cm Left Kidney: Lobulated contour, appeared wnl Bladder: Visualized appeared wnl Bilateral Jets seen: No IMPRESSION: 1. Inferior pole right renal cyst.
[2020-10-30] MEDS ORDERED: amLODIPine 5 MG TAB PO STA (09:26)
[2020-10-30 09:37] LABS: Calcium 9.4 mg/dL (8.4-10.2); Potassium 4.6 mmol/L (3.5-5.1)
[2020-10-30] MEDS: amLODIPine 5 MG TAB PO SCH (10:13)
[2020-10-30] MEDS: amLODIPine 10 MG TAB PO SCH (10:18)
[2020-10-30] MEDS: APIXABAN 5 MG TAB PO SCH ×2 (10:18→20:41)
[2020-10-30] MEDS: FUROSEMIDE 20 MG TAB PO SCH (10:18)
[2020-10-30] MEDS: METOPROLOL TARTRATE 50 MG TAB PO SCH ×2 (10:19→20:41)
[2020-10-30 11:54] LABS: Glucose,Whole Blood 324 mg/dL (75-99)
--- NOTE | 2020-10-30 12:08 | P.NPCON ---
History of Present Illness - Reason for Consult acute renal failure - History of Present Illness Reason for consultation: Acute kidney injury on chronic kidney disease History of present illness: Patient is a 84-year-old male seen in renal consultation for acute kidney injury on chronic kidney disease. Patient has chronic kidney disease stage IIIB with baseline creatinine 1.4-1.6. 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 Patient was last seen in the office in July 2017 and at that time his creatinine was near 1.4. He has not been seen in the office since then. Creatinine this admission has been in the range of 1.9-2.3. Patient presented to the hospital with shortness of breath. He does complain of a nonproductive cough. He's being treated for pneumonia. He denies any fever. No vomiting or diarrhea. Denies regular use of nonsteroidals. He is maintained on Lasix 20 mg orally once doimnga y. He does have long-standing history of diabetes mellitus. He was on losartan as well as hydrochlorothiazide which are held. No abdominal pain. No edema. Good urine output. No hematuria or dysuria. No abdominal pain. Blood pressure stable. Currently on room air. Vital signs are stable. General: The patient appeared well nourished and normally developed. HEENT: Head exam is unremarkable. Neck is without jugular venous distension. LUNGS: Breath sounds decreased. HEART: Rate and Rhythm are regular. ABDOMEN: Soft, nontender. EXTREMITITES: No edema. Past Medical History Past Medical History: Atrial Fibrillation, Diabetes Mellitus History of Any Multi-Drug Resistant Organisms: None Reported Past Surgical History: Coronary Bypass/CABG, Pacemaker Past Anesthesia/Blood Transfusion Reactions: No Reported Reaction Type of Cardiac Device: Permanent Pacemaker Device Placement Date:: about 3 years ago Past Psychological History: No Psychological Hx Reported Smoking Status: Never smoker Past Alcohol Use History: None Reported Past Drug Use History: None Reported - Past Family History Mother Family Medical History: Myocardial Infarction ([place]) Father Family Medical History: Myocardial Infarction ([place]) Medications and Allergies Home Medications Medication Instructions Recorded Confirmed Type Apixaban [Eliquis] 5 mg PO BID 10/28/20 10/28/20 History Furosemide [Lasix] 20 mg PO DAILY 10/28/20 10/28/20 History Losartan/Hydrochlorothiazide 1 tab PO DAILY 10/28/20 10/28/20 History [Losartan-Hctz 100-25 mg Tab] Metoprolol Tartrate [Lopressor] 50 mg PO BID 10/28/20 10/28/20 History Multivitamins, Thera [Multivitamin 1 tab PO DAILY 10/28/20 10/28/20 History (formulary)] Simvastatin [Zocor] 20 mg PO HS 10/28/20 10/28/20 History amLODIPine [Norvasc] 5 mg PO DAILY 10/28/20 10/28/20 History glipiZIDE [Glucotrol] 10 mg PO AC-BRKFST 10/28/20 10/28/20 History Allergies Allergy/AdvReac Type Severity Reaction Status Date / Time No Known Allergies Allergy Verified 10/28/20 12:22 Physical Exam Vitals: Vital Signs Temp Pulse Resp BP Pulse Ox 10/30/20 08:00 98.2 F 64 18 151/69 98 10/30/20 03:25 98.4 F 60 18 162/72 96 10/30/20 01:29 18 10/29/20 23:46 98.3 F 60 18 145/69 94 L 10/29/20 20:00 98.8 F 64 18 139/67 95 10/29/20 16:00 59 L 17 142/71 96 Intake and Output 10/29/20 10/30/20 10/30/20 22:59 06:59 14:59 Intake Total 240 Output Total 200 450 Balance 40 -450 Intake: Oral 240 Output: Urine 200 450 Other: Voiding Method Toilet Toilet Toilet Urinal Urinal Weight 85.3 kg Results - Lab Results Most recent lab results Calcium 9.4 mg/dL (8.4-10.2) 10/30/20 08:44 10/29/20 07:29 10/30/20 08:44 Assessment and Plan Plan: Assessment: 1. Acute kidney injury versus progression of underlying chronic kidney disease. Creatinine fairly stable at 2.01 this admission. UA benign. No evidence of hydronephrosis noted on kidney ultrasound. 2. Chronic kidney disease stage IIIB with baseline creatinine 1.4-1.6 from July 2017 secondary to diabetic kidney disease. 3. Pneumonia maintained on antibiotics. 4. Hypertension with chronic kidney disease. Stable. 5. Diabetes mellitus. 6. Hyponatremia secondary to chronic kidney disease and hyperglycemia. Better. Plan: Maintain Lasix 20 mg orally once daily. Avoid nephrotoxins. Continue to monitor renal function and urine output. Thank you for the consultation. I will continue to follow the patient with you during his hospital stay.
--- NOTE | 2020-10-30 13:26 | P.PN ---
Subjective HISTORY OF PRESENTING ILLNESS This is a pleasant 84-year-old male past medical history significant for paroxysmal atrial fibrillation on long-term anticoagulation status post cardioversion 2016, permanent pacemaker implantation ([employer]) secondary to complete heart block, coronary artery disease s/p 2V bypass grafting with AMBRIZ to LAD and radial artery to D1 2000, diabetes mellitus, hypertension, dyslipidemia, ischemic cardiomyopathy and chronic systolic heart failure. He follows in the office with Dr. Gallardo. He is seen and examined sitting up in bed in no acute distress. He states this morning while getting up to the bathroom and having breakfast he did have an episode of increased shortness of breath and wheezing. He denies chest pain, dizziness or palpitations. Currently maintained on IV antibiotics. Blood pressure 162/72 heart rate 68 afebrile maintaining oxygen saturation on room air. Laboratory data pending. PHYSICAL EXAMINATION CONSTITUTIONAL: No apparent distress. HEENT: Head is normocephalic. Pupils are equal, round. Sclerae anicteric. Mucous membranes of the mouth are moist. No JVD. No carotid bruit. CHEST EXAMINATION: Bibasilar rales No chest wall tenderness is noted on palpation or with deep breathing. HEART EXAMINATION: Regular rate and rhythm. S1, S2 heard. Systolic ejection murmur at the left sternal border, no gallops or rub. EXTREMITIES: 2+ peripheral pulses, no lower extremity edema and no calf tenderness. ASSESSMENT Pneumonia Leukocytosis Troponin elevation, does not appear to be due to primary myocardial injury. Acute kidney injury Hypertension Mild acute exacerbation of chronic systolic heart failure Ischemic cardiomyopathy Complete heart block s/p permanent pacemaker implantation Coronary artery disease s/p bypass grafting 2000 Dyslipidemia Diabetes mellitus Paroxysmal atrial fibrillation on eliquis, currently in sinus rhythm PLAN Increase Norvasc to 10 mg daily. Losartan/hydrochlorothiazide continues to be on hold secondary to worsening renal function. Ongoing medical management and treatment of pneumonia. Recommend follow up with Dr. Gallardo upon discharge. Nurse Practitioner note has been reviewed, I agree with a documented findings and plan of care. Patient was seen and examined. Objective - Vital Signs Vital signs: Vital Signs Temp 98.4 F 10/30/20 03:25 Pulse 60 10/30/20 03:25 Resp 18 10/30/20 03:25 BP 162/72 10/30/20 03:25 Pulse Ox 96 10/30/20 03:25 Intake & Output 10/29/20 10/30/20 10/30/20 18:59 06:59 18:59 Intake Total 964.440 Output Total 650 Balance 964.440 -650 Weight 85.3 kg Intake: Intake, IV Titration 44.440 Amount Insulin Regular 100 unit 44.440 In Sodium Chloride 0.9% 100 ml @ Titrate IV .Q0M [facility] Rx#:[id number] Oral 920 Output: Urine 650 Other: Voiding Method Toilet Urinal - Labs CBC & Chem 7: 10/29/20 07:29 10/30/20 08:44 Labs: Abnormal Lab Results - Last 24 Hours (Table) 10/29/20 10/29/20 10/29/20 Range/Units 11:53 15:15 17:03 POC Glucose (mg/dL) 164 H 187 H 221 H (75-99) mg/dL 10/29/20 10/30/20 Range/Units 20:22 06:05 POC Glucose (mg/dL) 300 H 241 H (75-99) mg/dL Microbiology - Last 24 Hours (Table) 10/28/20 12:23 Blood Culture - Preliminary Blood No Growth after 24 hours
[2020-10-30 17:08] LABS: Glucose,Whole Blood 353 mg/dL (75-99)
[2020-10-30 20:22] LABS: Glucose,Whole Blood 321 mg/dL (75-99)
[2020-10-30] MEDS: AZITHROMYCIN 500 MG TAB PO SCH (20:41)
[2020-10-30] MEDS: ATORVASTATIN 10 MG TAB PO SCH (20:41)
--- NOTE | 2020-10-30 21:14 | P.PN ---
Progress Note - Text Progress Note Date: 10/30/20 Chief Complaint: short of breath History of presenting complaint: This is a pleasant 84-year-old patient of Dr. Shoaib Coreas. Chronic stable medical conditions include atrial fibrillation diabetes, coronary artery disease with bypass and a permanent pacemaker. Patient's last to 3 days been having a dry cough with wheezing. Patient woke up around 3 AM short of breath and [place] to [facility]. He'll is some bump in troponin and was felt to be in CHF patient is given Lasix and nitro his pulse ox was 80% which improved to 93% on 3 L. And he was sent down here for further workup. Denies any fever and chills. No edema. No chest pain. Appetite is fair. Admitted with right lower lobe pneumonia. Started IV ceftriaxone Zithromax. . Today-feeling with better. Short of breath.Oral intake about 75% Review of systems: Was done for constitutional, cardiovascular, GI, pulmonary. relevant finding as above Active Medications Amlodipine Besylate (Amlodipine 10 Mg Tab) 10 mg PO DAILY [facility] Last Admin: 10/30/20 10:18 Dose: 10 mg Documented by: Apixaban (Apixaban 5 Mg Tab) 5 mg PO BID [facility] Last Admin: 10/30/20 20:41 Dose: 5 mg Documented by: Atorvastatin Calcium (Atorvastatin 10 Mg Tab) 10 mg PO [facility] Last Admin: 10/30/20 20:41 Dose: 10 mg Documented by: Azithromycin (Azithromycin 500 Mg Tab) 500 mg PO [facility] Last Admin: 10/30/20 20:41 Dose: 500 mg Documented by: Furosemide (Furosemide 20 Mg Tab) 20 mg PO DAILY [facility] Last Admin: 10/30/20 10:18 Dose: 20 mg Documented by: Ceftriaxone Sodium 1 gm/ (Sodium Chloride) 50 mls @ 100 mls/hr IVPB Q12HR [facility] Last Admin: 10/30/20 20:41 Dose: 100 mls/hr Documented by: Insulin Aspart (Insulin Aspart (Novolog) 100 Unit/Ml Vial) 0 unit SQ ACHS [facility]; Protocol Last Admin: 10/30/20 20:41 Dose: 5 unit Documented by: Metoprolol Tartrate (Metoprolol Tartrate 50 Mg Tab) 50 mg PO BID [facility] Last Admin: 10/30/20 20:41 Dose: 50 mg Documented by: Naloxone HCl (Naloxone 0.4 Mg/Ml 1 Ml Vial) 0.2 mg IV Q2M PRN PRN Reason: Opioid Reversal Past medical history to include: Coronary artery disease with bypass, atrial fibrillation, diabetes, pacemaker Social history: Does not smoke or drink alcohol. Lives alone. Retired diesel locomotive engineer. For [employer] Physical examination: VITAL SIGNS: 97.9, 60, 18, 1 36 x 64, 95% room air GENERAL: BMI 25.5, sitting up in bed, bit tired. EYES: Pupils equal. Conjunctiva normal. HEENT: External appearance of nose and ears normal, oral cavity grossly normal. NECK: JVD not raised; masses not palpable. HEART: First and second heart sounds are normal; no edema. LUNGS: Respiratory rate increased, decreased breath sounds. Right basal crackles ABDOMEN: Soft, nontender, liver spleen not palpable, no masses palpable. PSYCH: Alert and oriented x3; mood and affect normal. INVESTIGATIONS, reviewed in the clinical context: April 29: Potassium 4.6 bun 57 creatinine 2.01 White count 12.3 hemoglobin 13.8 platelets 157 potassium 4.9 creatinine 1.96 Blood glucose 398 Accu-Cheks 540, 5.5 Troponin I 0.069, 0.061, 0.068 ProBNP 1670 Pro-calcitonin 0.12 EKG tracing personally reviewed by me-ventricular paced rhythm Chest x-ray film personally reviewed by me-shows infiltrates 2-D echocardiogram-EF 60-65% Renal ultrasound-within normal limits. UA negative Assessment: -Pneumonia, suspect gram-negative orgasm -Coronary artery disease with a prior history of bypass -Paroxysmal atrial fibrillation, chronically on anticoagulation -Diabetes mellitus type 2 on oral hypoglycemic, uncontrolled with hyperglycemia -Troponin leak in the setting of chronic kidney disease. Doubt acute coronary syndrome -Possible acute kidney injury. Could be cardiorenal syndrome. -Doubt acute congestive heart failure. Plan: Continue IV Zithromax and ceftriaxone. Lasix discontinued. We'll resume patient's Glucotrol. Add Levemir for tonight.
[2020-10-30] MEDS ORDERED: SODIUM CHLORIDE 0.9% 1,000 ML IV SCH (21:15)
[2020-10-30] MEDS: glipiZIDE 5 MG TAB PO SCH (21:33)
[2020-10-31 06:18] LABS: Glucose,Whole Blood 202 mg/dL (75-99)
[2020-10-31] MEDS: INSULIN ASPART (NovoLOG) 100 UNIT/ML VIAL SQ SCH ×2 (06:37→12:20)
[2020-10-31] MEDS: glipiZIDE 5 MG TAB PO SCH (06:37)
[2020-10-31 08:12] LABS: Calcium 9.2 mg/dL (8.4-10.2); Magnesium 2.1 mg/dL (1.6-2.3); Potassium 4.1 mmol/L (3.5-5.1)
[2020-10-31] MEDS: METOPROLOL TARTRATE 50 MG TAB PO SCH (08:50)
[2020-10-31] MEDS: FUROSEMIDE 20 MG TAB PO SCH (08:50)
[2020-10-31] MEDS: amLODIPine 10 MG TAB PO SCH (08:50)
[2020-10-31] MEDS ORDERED: APIXABAN 2.5 MG TABLET PO SCH (09:00)
--- NOTE | 2020-10-31 10:18 | P.PN ---
Subjective Patient is seen in follow-up for acute kidney injury on chronic kidney disease. Renal function improved. No chest pain or shortness of breath. Has been voiding. Hemodynamically stable. Vital signs are stable. General: The patient appeared well nourished and normally developed. HEENT: Head exam is unremarkable. Neck is without jugular venous distension. LUNGS: Breath sounds decreased. HEART: Rate and Rhythm are regular. ABDOMEN: Soft, nontender. EXTREMITITES: No edema. Objective - Vital Signs Vital signs: Vital Signs Temp 97.6 F 10/31/20 08:00 Pulse 62 10/31/20 08:00 Resp 17 10/31/20 08:00 BP 117/57 10/31/20 08:00 Pulse Ox 98 10/31/20 08:00 Intake & Output 10/30/20 10/31/20 10/31/20 18:59 06:59 18:59 Intake Total 290 Output Total 900 200 Balance -610 -200 Weight 83.3 kg Intake: Intake, IV Titration 50 Amount cefTRIAXone 1 gm In 50 Sodium Chloride 0.9% 50 ml @ 100 mls/hr IVPB Q12HR [facility] Rx#:[id number] Oral 240 Output: Urine 900 200 Other: Voiding Method Toilet Toilet Urinal Urinal - Labs CBC & Chem 7: 10/29/20 07:29 10/31/20 07:27 Labs: Abnormal Lab Results - Last 24 Hours (Table) 10/30/20 10/30/20 10/30/20 Range/Units 11:51 16:51 20:11 BUN (9-20) mg/dL Creatinine (0.66-1.25) mg/dL Glucose (74-99) mg/dL POC Glucose (mg/dL) 324 H 353 H 321 H (75-99) mg/dL 10/31/20 10/31/20 Range/Units 06:17 07:27 BUN 45 H (9-20) mg/dL Creatinine 1.56 H (0.66-1.25) mg/dL Glucose 204 H (74-99) mg/dL POC Glucose (mg/dL) 202 H (75-99) mg/dL Microbiology - Last 24 Hours (Table) 10/28/20 12:23 Blood Culture - Preliminary Blood No Growth after 48 hours Assessment and Plan Plan: Assessment: 1. Acute kidney injury mostly prerenal. Improved. Creatinine 1.56 today. UA benign. No evidence of hydronephrosis noted on kidney ultrasound. 2. Chronic kidney disease stage IIIB with baseline creatinine 1.4-1.6 from July 2017 secondary to diabetic kidney disease. 3. Pneumonia maintained on antibiotics. 4. Hypertension with chronic kidney disease. Stable. 5. Diabetes mellitus. 6. Hyponatremia secondary to chronic kidney disease and hyperglycemia. Better. Plan: Maintain Lasix 20 mg orally once daily. Avoid nephrotoxins. Continue to monitor renal function and urine output. Anticipate discharge soon. Follow up outpatient in 2 weeks.
--- NOTE | 2020-10-31 11:11 | P.PN ---
Subjective HISTORY OF PRESENTING ILLNESS This is a pleasant 84-year-old male past medical history significant for paroxysmal atrial fibrillation on long-term anticoagulation status post cardioversion 2016, permanent pacemaker implantation ([employer]) secondary to complete heart block, coronary artery disease s/p 2V bypass grafting with AMBRIZ to LAD and radial artery to D1 2000, diabetes mellitus, hypertension, dyslipidemia, ischemic cardiomyopathy and chronic systolic heart failure. He follows in the office with Dr. Gallardo. He is seen and examined sitting up sleeping in bed in no acute distress. He denies symptoms of chest pain or shortness of breath. He states his cough has improved. He is currently receiving IV antibiotics for pneumonia. He has maintained on oral diuretics. Blood pressure 117/57 heart rate 62 afebrile maintaining oxygen saturation on room air. Laboratory data reviewed, sodium 139, potassium 4.1, creatinine 1.56 down from 2.01 yesterday. PHYSICAL EXAMINATION CONSTITUTIONAL: No apparent distress. HEENT: Head is normocephalic. Pupils are equal, round. Sclerae anicteric. Mucous membranes of the mouth are moist. No JVD. No carotid bruit. CHEST EXAMINATION: Bibasilar rales No chest wall tenderness is noted on palpation or with deep breathing. HEART EXAMINATION: Regular rate and rhythm. S1, S2 heard. Systolic ejection murmur at the left sternal border, no gallops or rub. EXTREMITIES: 2+ peripheral pulses, no lower extremity edema and no calf tenderness. ASSESSMENT Pneumonia Leukocytosis Troponin elevation, does not appear to be due to primary myocardial injury. Acute kidney injury Hypertension Mild acute exacerbation of chronic systolic heart failure Ischemic cardiomyopathy Complete heart block s/p permanent pacemaker implantation Coronary artery disease s/p bypass grafting 2000 Dyslipidemia Diabetes mellitus Paroxysmal atrial fibrillation on eliquis, currently in sinus rhythm PLAN Clinically stable from a cardiac perspective on current medical regimen. Ongoing medical management and treatment of pneumonia. Recommend follow up with Dr. Gallardo upon discharge. Nurse Practitioner note has been reviewed, I agree with a documented findings and plan of care. Patient was seen and examined. Objective - Vital Signs Vital signs: Vital Signs Temp 97.6 F 10/31/20 08:00 Pulse 62 10/31/20 08:00 Resp 17 10/31/20 08:00 BP 117/57 10/31/20 08:00 Pulse Ox 98 10/31/20 08:00 Intake & Output 10/30/20 10/31/20 10/31/20 18:59 06:59 18:59 Intake Total 290 Output Total 900 200 Balance -610 -200 Weight 83.3 kg Intake: Intake, IV Titration 50 Amount cefTRIAXone 1 gm In 50 Sodium Chloride 0.9% 50 ml @ 100 mls/hr IVPB Q12HR [facility] Rx#:[id number] Oral 240 Output: Urine 900 200 Other: Voiding Method Toilet Toilet Urinal Urinal - Labs CBC & Chem 7: 10/29/20 07:29 10/31/20 07:27 Labs: Abnormal Lab Results - Last 24 Hours (Table) 10/30/20 10/30/20 10/30/20 Range/Units 11:51 16:51 20:11 BUN (9-20) mg/dL Creatinine (0.66-1.25) mg/dL Glucose (74-99) mg/dL POC Glucose (mg/dL) 324 H 353 H 321 H (75-99) mg/dL 10/31/20 10/31/20 Range/Units 06:17 07:27 BUN 45 H (9-20) mg/dL Creatinine 1.56 H (0.66-1.25) mg/dL Glucose 204 H (74-99) mg/dL POC Glucose (mg/dL) 202 H (75-99) mg/dL Microbiology - Last 24 Hours (Table) 10/28/20 12:23 Blood Culture - Preliminary Blood No Growth after 48 hours
[2020-10-31 11:57] LABS: Glucose,Whole Blood 274 mg/dL (75-99)
[2020-10-31 12:50] VITALS: BP 138/65; PULSE 60; RESP 18; TEMP 97.9
--- NOTE | 2020-10-31 23:52 | P.DS ---
Providers Date of admission: 10/28/20 12:14 Expected date of discharge: 10/31/20 Attending physician: Chico Galvin Consults: 10/28/20 12:14 Consult Physician Urgent Consulting Provider: [facility] Consult Reason/Comments: nstemi Do you want consulting provider notified?: Yes 10/29/20 22:05 Consult Physician Routine Consulting Provider: Rob Kingsley Consult Reason/Comments: CK D Do you want consulting provider notified?: Yes Primary care physician: Shoaib Bess [facility] Course: Chief Complaint: short of breath History of presenting complaint: This is a pleasant 84-year-old patient of Dr. Shoaib Coreas. Chronic stable medical conditions include atrial fibrillation diabetes, coronary artery disease with bypass and a permanent pacemaker. Patient's last to 3 days been having a dry cough with wheezing. Patient woke up around 3 AM short of breath and [facility] to [facility]. He'll is some bump in troponin and was felt to be in CHF patient is given Lasix and nitro his pulse ox was 80% which improved to 93% on 3 L. And he was sent down here for further workup. Denies any fever and chills. No edema. No chest pain. Appetite is fair. Admitted with right lower lobe pneumonia. Started IV ceftriaxone Zithromax. . Responded well. Had acute kidney injury. Creatinine did go up to 2.01. We gentle hydration to come down to 1.56 Today-breathing much improved. Eating well. Has been up in a chair. Discussed with the patient. Discussion and discharge planning more than 35 minutes Consultation: Dr. Andres from cardiology Past medical history to include: Coronary artery disease with bypass, atrial fibrillation, diabetes, pacemaker Social history: Does not smoke or drink alcohol. Lives alone. Retired electronic engineering technician. For [employer] Physical examination: VITAL SIGNS: 97.9, 16, 18, 138/65, 96% room air GENERAL: BMI 25.5, sitting up in bed, comfortable EYES: Pupils equal. Conjunctiva normal. HEENT: External appearance of nose and ears normal, oral cavity grossly normal. NECK: JVD not raised; masses not palpable. HEART: First and second heart sounds are normal; no edema. LUNGS: Respiratory rate normal decreased breath sounds. ABDOMEN: Soft, nontender, liver spleen not palpable, no masses palpable. PSYCH: Alert and oriented x3; mood and affect normal. INVESTIGATIONS, reviewed in the clinical context: October 31: Potassium 4.1 creatinine 1.56 October 30: Potassium 4.6 bun 57 creatinine 2.01 White count 12.3 hemoglobin 13.8 platelets 157 potassium 4.9 creatinine 1.96 Blood glucose 398 Accu-Cheks 540, 5.5 Troponin I 0.069, 0.061, 0.068 ProBNP 1670 Pro-calcitonin 0.12 EKG tracing personally reviewed by me-ventricular paced rhythm Chest x-ray film personally reviewed by me-shows infiltrates 2-D echocardiogram-EF 60-65% Renal ultrasound-within normal limits. UA negative Assessment: -Pneumonia, suspect gram-negative orgasm -Coronary artery disease with a prior history of bypass -Paroxysmal atrial fibrillation, chronically on anticoagulation -Diabetes mellitus type 2 on oral hypoglycemic, uncontrolled with hyperglycemia -Troponin leak in the setting of chronic kidney disease. Doubt acute coronary syndrome -acute kidney injury. pre renal from cardiorenal syndrome. -Suspect underlying chronic kidney disease stage III from diabetic nephropathy and nephrosclerosis -Doubt acute congestive heart failure. Disposition: Home Patient Condition at Discharge: Stable Plan - Discharge Summary Discharge Rx Participant: No New Discharge Prescriptions: New Cefuroxime Axetil [Ceftin] 500 mg PO BID 1 Days #6 tab Apixaban [Eliquis] 2.5 mg PO BID #60 tablet amLODIPine [Norvasc] 10 mg PO DAILY #30 tab Continue glipiZIDE [Glucotrol] 10 mg PO AC-BRKFST Simvastatin [Zocor] 20 mg PO HS Multivitamins, Thera [Multivitamin (formulary)] 1 tab PO DAILY Metoprolol Tartrate [Lopressor] 50 mg PO BID Furosemide [Lasix] 20 mg PO DAILY Discontinued amLODIPine [Norvasc] 5 mg PO DAILY Losartan/Hydrochlorothiazide [Losartan-Hctz 100-25 mg Tab] 1 tab PO DAILY Apixaban [Eliquis] 5 mg PO BID Discharge Medication List Furosemide [Lasix] 20 mg PO DAILY 10/28/20 [History] Metoprolol Tartrate [Lopressor] 50 mg PO BID 10/28/20 [History] Multivitamins, Thera [Multivitamin (formulary)] 1 tab PO DAILY 10/28/20 [History] Simvastatin [Zocor] 20 mg PO HS 10/28/20 [History] glipiZIDE [Glucotrol] 10 mg PO AC-BRKFST 10/28/20 [History] Apixaban [Eliquis] 2.5 mg PO BID #60 tablet 10/31/20 [Rx] Cefuroxime Axetil [Ceftin] 500 mg PO BID 1 Days #6 tab 10/31/20 [Rx] amLODIPine [Norvasc] 10 mg PO DAILY #30 tab 10/31/20 [Rx] Follow up Appointment(s)/Referral(s): Gurwinder Gallardo MD [STAFF PHYSICIAN] - 2 Weeks Shoabi Bess DO [Primary Care Provider] - 1 Week (please call office for appointment time) Patient Instructions/Handouts: Heart Failure (DC), Pneumonia (GEN) Activity/Diet/Wound Care/Special Instructions: bmp - 1 week activity as tolerated Discharge Disposition: HOME SELF-CARE
--- NOTE | 2020-11-08 07:50 | CDI ---
Documentation Clarification Form Date: 11/08/2020 07:39:00 AM From: Noreen Johnson Phone: If you have a question about this query, please contact Grace Crocker, [employer] at [phone] between 8am and 5pm. Admit Date: 10/28/2020 12:14:00 PM Patient Name: Adam Katz Visit Number: [id number] Discharge Date: 10/31/2020 03:56:00 PM ATTENTION: The Clinical Documentation Specialists (CDI) and [facility] Coding Staff appreciate your assistance in clarifying documentation. Please respond to the clarification below the line at the bottom and electronically sign. The CDI & [facility] Coding staff will review the response and follow-up if needed. Please note: Queries are made part of the Legal Health Record. If you have any questions, please contact the author of this message via ITS. Dr. Chico Galvin Conflicting documentation has been found in the medical record: Per your H and P and DCS "Doubt acute CHF". Per cardiology consult "Mild acute exacerbation of chronic systolic heart failure. Continue oral diuretics. History/Risk Factors: chronic systolic CHF, cardiorenal syndrome Clinical Indicators: BNP 1670 Treatment: oral diuretics In your opinion, what is the most clinically appropriate diagnosis for this patient? Mild acute exacerbation of systolic CHF Acute exacerbation of CHF ruled out Other explanation of clinical findings Unable to determine (no explanation for clinical findings) _Acute exacerbation of CHF ruled out MTDD
== END 2020-10-31 15:56 | disposition home or self-care (01) | DRG 178 ==
LOC: EC 10:35 → 3SCARD 12:14
PROVIDERS: ADMIT Hospitalist; ATTEND Hospitalist
DX: J15.6 Pneumonia due to other Gram-negative bacteria (principal); E87.1 Hypo-osmolality and hyponatremia; I13.0 Hypertensive heart and chronic kidney disease with heart failure and stage 1 through stage 4 chronic kidney disease, or unspecified chronic kidney disease; I44.2 Atrioventricular block, complete; N17.9 Acute kidney failure, unspecified; I50.22 Chronic systolic (congestive) heart failure; R09.02 Hypoxemia; E11.22 Type 2 diabetes mellitus with diabetic chronic kidney disease; E11.65 Type 2 diabetes mellitus with hyperglycemia; E78.5 Hyperlipidemia, unspecified; R79.89 Other specified abnormal findings of blood chemistry; I25.10 Atherosclerotic heart disease of native coronary artery without angina pectoris; I25.5 Ischemic cardiomyopathy; I27.20 Pulmonary hypertension, unspecified; I48.0 Paroxysmal atrial fibrillation; N18.32 Chronic kidney disease, stage 3b; Z60.2 Problems related to living alone; I07.1 Rheumatic tricuspid insufficiency; Z79.01 Long term (current) use of anticoagulants; Z79.84 Long term (current) use of oral hypoglycemic drugs; Z79.899 Other long term (current) drug therapy; Z82.49 Family history of ischemic heart disease and other diseases of the circulatory system; Z95.0 Presence of cardiac pacemaker; Z95.1 Presence of aortocoronary bypass graft
CPT/HCPCS: 36415; 71046; 76770; 80048; 80053; 81003; 83735; 83880; 84145; 84484; 85025; 87040; 93005; 93306; 96365; 96366; 96375; 99285

== ENCOUNTER 2020-11-10 11:52 | Inpatient (IN) | payer MEDICARE ==
[2020-11-10 12:57] LABS: Basophils % (A) 0 %; Eosinophils % (A) 0 %; HCT 37.6 % (39.0-53.0); HGB 13.2 gm/dL (13.0-17.5); Lymphocytes # (A) 0.8 k/uL (1.0-4.8); Lymphocytes % (A) 9 %; MCH 31.5 pg (25.0-35.0); MCV 89.9 fL (80.0-100.0); Mean Platelet Volume 7.8; Monocytes # (A) 0.3 k/uL (0-1.0); Monocytes % (A) 3 %; Neutrophils # (A) 7.6 k/uL (1.3-7.7); Neutrophils % (A) 86 %; Platelet Count 165 k/uL (150-450); RBC 4.19 m/uL (4.30-5.90); WBC 8.9 k/uL (3.8-10.6)
[2020-11-10 13:08] LABS: Albumin 3.1 g/dL (3.5-5.0); Magnesium 2.2 mg/dL (1.6-2.3); Potassium 3.6 mmol/L (3.5-5.1); Total Protein 6.2 g/dL (6.3-8.2)
[2020-11-10 13:11] LABS: D-Dimer 0.45 mg/L FEU (<0.60); INR 1.2 (<1.2); Partial Thromboplastin Time 25.1 sec (22.0-30.0); Prothrombin Time 12.6 sec (9.0-12.0)
--- NOTE | 2020-11-10 13:29 | ED ---
General Adult HPI - General Chief complaint: Shortness of Breath Stated complaint: SOB Time Seen by Provider: 11/10/20 11:55 Source: patient, EMS, RN notes reviewed, old records reviewed Mode of arrival: EMS Limitations: no limitations - History of Present Illness Initial comments: This is an 84-year-old male who presents emergency department stating that 3 weeks ago he was diagnosed pneumonia he was sent home on antibiotics he took antibiotics and for the last 2 weeks she's had diarrhea. Patient states he is extremely short of breath and weak. Patient denies any recent fever chills per patient denies cough per patient denies chest pain or palpitations. Patient denies any lightheadedness or dizziness per patient denies any numbness weakness. Patient states she's very weak when he tries to get up however. Patient denies any injury or trauma or fall. Patient denies any abdominal pain patient denies any nausea vomiting but again does have a lot of diarrhea. - Related Data Home Medications Medication Instructions Recorded Confirmed Furosemide [Lasix] 20 mg PO DAILY 10/28/20 11/10/20 Metoprolol Tartrate [Lopressor] 50 mg PO BID 10/28/20 11/10/20 Multivitamins, Thera [Multivitamin 1 tab PO DAILY 10/28/20 11/10/20 (formulary)] Simvastatin [Zocor] 20 mg PO HS 10/28/20 11/10/20 glipiZIDE [Glucotrol] 10 mg PO AC-BRKFST 10/28/20 11/10/20 Previous Rx's Medication Instructions Recorded Apixaban [Eliquis] 2.5 mg PO BID #60 tablet 10/31/20 amLODIPine [Norvasc] 10 mg PO DAILY #30 tab 10/31/20 Allergies Allergy/AdvReac Type Severity Reaction Status Date / Time No Known Allergies Allergy Verified 11/10/20 12:23 Review of Systems ROS Statement: Those systems with pertinent positive or pertinent negative responses have been documented in the HPI. ROS Other: All systems not noted in ROS Statement are negative. Past Medical History Past Medical History: Atrial Fibrillation, Diabetes Mellitus Additional Past Medical History / Comment(s): pneumonia History of Any Multi-Drug Resistant Organisms: None Reported Past Surgical History: Coronary Bypass/CABG, Pacemaker Past Anesthesia/Blood Transfusion Reactions: No Reported Reaction Type of Cardiac Device: Permanent Pacemaker Device Placement Date:: about 3 years ago Past Psychological History: No Psychological Hx Reported Smoking Status: Never smoker Past Alcohol Use History: None Reported Past Drug Use History: None Reported - Past Family History Mother Family Medical History: Myocardial Infarction (SD) Father Family Medical History: Myocardial Infarction (SD) General Exam - General Exam Comments Initial Comments: GENERAL: Patient is well-developed and well-nourished. Patient is nontoxic and well- hydrated and is in mild distress. ENT: Neck is soft and supple. No significant lymphadenopathy is noted. Oropharynx is clear. Dry mucous membranes. Neck has full range of motion without eliciting any pain. EYES: The sclera were anicteric and conjunctiva were pink and moist. Extraocular movements were intact and pupils were equal round and reactive to light. Eyelids were unremarkable. PULMONARY: Patient is crackles bilateral bases CARDIOVASCULAR: There is a regular rate and rhythm without any murmurs gallops or rubs. ABDOMEN: Soft and nontender with normal bowel sounds. SKIN: Skin is clear with no lesions or rashes and otherwise unremarkable. NEUROLOGIC: Patient is alert and oriented x3. Cranial nerves II through XII are grossly intact. Motor and sensory are also intact. Normal speech, volume and content. Symmetrical smile. MUSCULOSKELETAL: Normal extremities with adequate strength and full range of motion. LYMPHATICS: No significant lymphadenopathy is noted PSYCHIATRIC: Normal psychiatric evaluation Limitations: no limitations Course Vital Signs 11/10/20 11/10/20 11/10/20 11:53 12:00 12:30 Temperature 98.3 F Pulse Rate 60 60 Respiratory 24 20 Rate Blood Pressure 126/60 126/60 127/58 O2 Sat by Pulse 87 L 86 L 87 L Oximetry 11/10/20 11/10/20 13:00 14:00 Temperature Pulse Rate 60 62 Respiratory 20 18 Rate Blood Pressure 115/59 126/77 O2 Sat by Pulse 87 L 88 L Oximetry Medical Decision Making - Medical Decision Making EKG shows a ventricular paced rhythm at 60 bpm QRS is 190 QT interval 514 QTC is 514 Chest x-ray shows congestive heart rate. I gave the patient Lasix and ordered Lasix for the floor as well. I spoke with Dr. Brooks agreed to admit the patient admitted the patient wrote admitting orders and consult cardiology. - Lab Data Result diagrams: 11/10/20 12:49 11/10/20 12:49 Lab Results 11/10/20 11/10/20 11/10/20 Range/Units 12:49 12:49 12:49 WBC 8.9 (3.8-10.6) k/uL RBC 4.19 L (4.30-5.90) m/uL Hgb 13.2 (13.0-17.5) gm/dL Hct 37.6 L (39.0-53.0) % MCV 89.9 (80.0-100.0) fL MCH 31.5 (25.0-35.0) pg MCHC 35.0 (31.0-37.0) g/dL RDW 12.0 (11.5-15.5) % Plt Count 165 (150-450) k/uL MPV 7.8 Neutrophils % 86 % Lymphocytes % 9 % Monocytes % 3 % Eosinophils % 0 % Basophils % 0 % Neutrophils # 7.6 (1.3-7.7) k/uL Lymphocytes # 0.8 L (1.0-4.8) k/uL Monocytes # 0.3 (0-1.0) k/uL Eosinophils # 0.0 (0-0.7) k/uL Basophils # 0.0 (0-0.2) k/uL PT 12.6 H (9.0-12.0) sec INR 1.2 H (<1.2) APTT 25.1 (22.0-30.0) sec D-Dimer 0.45 (<0.60) mg/L FEU Sodium 137 (137-145) mmol/L Potassium 3.6 (3.5-5.1) mmol/L Chloride 105 (98-107) mmol/L Carbon Dioxide 25 (22-30) mmol/L Anion Gap 7 mmol/L BUN 36 H (9-20) mg/dL Creatinine 1.84 H (0.66-1.25) mg/dL Est GFR (CKD-EPI)AfAm 38 (>60 ml/min/1.73 sqM) Est GFR (CKD-EPI)NonAf 33 (>60 ml/min/1.73 sqM) Glucose 53 L (74-99) mg/dL Plasma Lactic Acid Tyler (0.7-2.0) mmol/L Calcium 8.0 L (8.4-10.2) mg/dL Magnesium 2.2 (1.6-2.3) mg/dL Total Bilirubin 1.0 (0.2-1.3) mg/dL AST 73 H (17-59) U/L ALT 41 (4-49) U/L Alkaline Phosphatase 46 (38-126) U/L Troponin I (0.000-0.034) ng/mL NT-Pro-B Natriuret Pep pg/mL Total Protein 6.2 L (6.3-8.2) g/dL Albumin 3.1 L (3.5-5.0) g/dL 11/10/20 11/10/20 11/10/20 Range/Units 12:49 12:49 12:49 WBC (3.8-10.6) k/uL RBC (4.30-5.90) m/uL Hgb (13.0-17.5) gm/dL Hct (39.0-53.0) % MCV (80.0-100.0) fL MCH (25.0-35.0) pg MCHC (31.0-37.0) g/dL RDW (11.5-15.5) % Plt Count (150-450) k/uL MPV Neutrophils % % Lymphocytes % % Monocytes % % Eosinophils % % Basophils % % Neutrophils # (1.3-7.7) k/uL Lymphocytes # (1.0-4.8) k/uL Monocytes # (0-1.0) k/uL Eosinophils # (0-0.7) k/uL Basophils # (0-0.2) k/uL PT (9.0-12.0) sec INR (<1.2) APTT (22.0-30.0) sec D-Dimer (<0.60) mg/L FEU Sodium (137-145) mmol/L Potassium (3.5-5.1) mmol/L Chloride (98-107) mmol/L Carbon Dioxide (22-30) mmol/L Anion Gap mmol/L BUN (9-20) mg/dL Creatinine (0.66-1.25) mg/dL Est GFR (CKD-EPI)AfAm (>60 ml/min/1.73 sqM) Est GFR (CKD-EPI)NonAf (>60 ml/min/1.73 sqM) Glucose (74-99) mg/dL Plasma Lactic Acid Tyler 1.5 (0.7-2.0) mmol/L Calcium (8.4-10.2) mg/dL Magnesium (1.6-2.3) mg/dL Total Bilirubin (0.2-1.3) mg/dL AST (17-59) U/L ALT (4-49) U/L Alkaline Phosphatase (38-126) U/L Troponin I 0.088 H* (0.000-0.034) ng/mL NT-Pro-B Natriuret Pep 6000 pg/mL Total Protein (6.3-8.2) g/dL Albumin (3.5-5.0) g/dL Critical Care Time Critical Care Time: Yes Total Critical Care Time: 35 Disposition Clinical Impression: Acute pulmonary edema Disposition: ADMITTED IP TO THIS HOSP Referrals: Shoaib Bess DO [Primary Care Provider] - 1-2 days Time of Disposition: 15:37
[2020-11-10] MEDS ORDERED: SODIUM CHLORIDE 0.9% 500 ML 500 ML IV ONE (13:30)
[2020-11-10] MEDS ORDERED: SODIUM CHLORIDE 0.9% 1,000 ML IV ONE (13:30)
--- NOTE | 2020-11-10 13:58 | XR ---
EXAMINATION TYPE: XR chest 2V DATE OF EXAM: 11/10/2020 COMPARISON: 10/29/2020 HISTORY: 84 year-old male shortness of breath, difficulty breathing TECHNIQUE: AP and lateral views FINDINGS: Left anterior chest wall pacemaker generator at right atrial and right ventricular leads. Median ster notomy wires are present with post-CABG clips. Heart remains enlarged. Diffuse interstitial opacities , patchy bibasilar opacities, and trace pleural effusions on the lateral view. IMPRESSION: Cardiomegaly with interstitial opacity, patchy bibasilar opacities, and trace pleural effusions. Jose elate for CHF with interstitial pulmonary edema.
[2020-11-10] MEDS ORDERED: FUROSEMIDE 10 MG/ML 4 ML VIAL IV STA (15:35)
[2020-11-10] MEDS: FUROSEMIDE 10 MG/ML 2 ML VIAL IV SCH ×2 (16:40→23:24)
[2020-11-10 16:52] LABS: Glucose,Whole Blood 62 mg/dL (75-99)
[2020-11-10 17:32] LABS: Glucose,Whole Blood 77 mg/dL (75-99)
[2020-11-10] MEDS: INSULIN ASPART (NovoLOG) 100 UNIT/ML VIAL SQ SCH ×2 (19:00→21:06)
[2020-11-10 19:27] LABS: Glucose,Whole Blood 77 mg/dL (75-99)
[2020-11-10] MEDS: METOPROLOL TARTRATE 50 MG TAB PO SCH (21:06)
[2020-11-10] MEDS: APIXABAN 2.5 MG TABLET PO SCH (21:06)
[2020-11-10] MEDS: ATORVASTATIN 10 MG TAB PO SCH (21:06)
--- NOTE | 2020-11-10 22:54 | P.HPIM ---
History of Present Illness H&P Date: 11/10/20 Chief Complaint: Shortness of breath Patient is a 84-year-old male with a known history paroxysmal atrial fibrillation, diabetes type 2, coronary artery disease with history of CABG and pacemaker placement who was recently admitted to the hospital for pneumonia and was discharged 10/31/2020 presented to ER with complaints of shortness of breath and diarrhea for the past 2 weeks. Patient states that he did complete his antibiotic course. Denied any complaints of abdominal pain. Patient has been having worsening shortness of breath and generalized weakness. Denied any fever or chills. No cough. No chest pain or palpitations. Patient felt very weak and tired. Denied any fall. No nausea or vomiting. Chest x-ray showed cardiomegaly with interstitial opacity, patchy bibasilar opacities and trace pleural effusions. Correlate for CHF with interstitial pulmonary edema. Laboratory data showed WBC 8.9, hemoglobin 13.1 platelets 165 D-dimer is 0.45 not elevated BUN 36 and creatinine 1.84 creatinine was 1.56 on 10/31/2020 Troponin 0 0.0889 proBNP 6000 Albumin 3.1 Patient is tested positive for COVID-19. Review of Systems Constitutional: Patient denies any fever or chills . generalized weakness and tired. Abdomen: Patient denied nausea vomiting and + short of breath no palpitations. Respiratory: patient denied any cough or sputum production. + shortness of breath Neurologic: Patient denied any numbness or tingling headache. Musculoskeletal: Patient denies any complaints of joint swelling or deformity. Skin: Negative Psychiatric: Negative Endocrine: No heat or cold intolerance. No recent weight gain. Genitourinary: No dysuria or hematuria. All other 14 point ROS negative except the above Past Medical History Past Medical History: Atrial Fibrillation, Diabetes Mellitus Additional Past Medical History / Comment(s): pneumonia History of Any Multi-Drug Resistant Organisms: None Reported Past Surgical History: Coronary Bypass/CABG, Pacemaker Past Anesthesia/Blood Transfusion Reactions: No Reported Reaction Type of Cardiac Device: Permanent Pacemaker Device Placement Date:: about 3 years ago Past Psychological History: No Psychological Hx Reported Smoking Status: Never smoker Past Alcohol Use History: None Reported Past Drug Use History: None Reported - Past Family History Mother Family Medical History: Myocardial Infarction ([place]) Father Family Medical History: Myocardial Infarction ([place]) Medications and Allergies Home Medications Medication Instructions Recorded Confirmed Type Furosemide [Lasix] 20 mg PO DAILY 10/28/20 11/10/20 History Metoprolol Tartrate [Lopressor] 50 mg PO BID 10/28/20 11/10/20 History Multivitamins, Thera [Multivitamin 1 tab PO DAILY 10/28/20 11/10/20 History (formulary)] Simvastatin [Zocor] 20 mg PO HS 10/28/20 11/10/20 History glipiZIDE [Glucotrol] 10 mg PO AC-BRKFST 10/28/20 11/10/20 History Apixaban [Eliquis] 2.5 mg PO BID #60 tablet 10/31/20 11/10/20 Rx amLODIPine [Norvasc] 10 mg PO DAILY #30 tab 10/31/20 11/10/20 Rx Allergies Allergy/AdvReac Type Severity Reaction Status Date / Time No Known Allergies Allergy Verified 11/10/20 12:23 Physical Exam Vitals: Vital Signs Temp Pulse Resp BP Pulse Ox 11/10/20 18:30 98.6 F 60 24 113/79 100 11/10/20 18:00 60 17 111/65 98 11/10/20 17:30 59 L 25 H 121/60 100 11/10/20 17:00 60 26 H 113/59 98 11/10/20 16:30 59 L 24 112/58 100 11/10/20 16:00 60 21 125/63 98 11/10/20 15:30 60 20 125/63 91 L 11/10/20 14:00 60 18 126/77 88 L 11/10/20 13:00 60 20 115/59 87 L 11/10/20 12:30 60 20 127/58 87 L 11/10/20 12:00 126/60 86 L 11/10/20 11:53 98.3 F 60 24 126/60 87 L Intake and Output 11/10/20 11/10/20 11/10/20 06:59 14:59 22:59 Other: Weight 81.647 kg 81.647 kg PHYSICAL EXAMINATION: Patient is lying in the bed comfortably, no acute distress, awake alert and orie nted.Generalized weakness and tired looking.. HEENT: Normocephalic. Neck is supple. Pupils reactive. Nostrils clear. Oral cavity is moist. Ears reveal no drainage. Neck reveals no JVD, carotid bruits, or thyromegaly. CHEST EXAMINATION: Trachea is central. Symmetrical expansion. Scattered coarse b reath sounds throughout. No wheezing.. CARDIAC: Normal S1, S2 with no gallops. No murmurs ABDOMEN: Soft. Bowel sounds normal. No organomegaly. No abdominal bruits. Extremities: reveal no edema. No clubbing or cyanosis Neurologically awake, alert, oriented x3 with well-coordinated movements. No focal deficits noted Skin: No rash or skin lesions. Psychiatric: Coperative. Nonsuicidal Musculoskeletal: No joint swelling or deformity. Normal range of motion. Results CBC & Chem 7: 11/10/20 12:49 11/10/20 12:49 Labs: Abnormal Lab Results - Last 24 Hours (Table) 11/10/20 11/10/20 11/10/20 Range/Units 12:49 12:49 12:49 RBC 4.19 L (4.30-5.90) m/uL Hct 37.6 L (39.0-53.0) % Lymphocytes # 0.8 L (1.0-4.8) k/uL PT 12.6 H (9.0-12.0) sec INR 1.2 H (<1.2) BUN 36 H (9-20) mg/dL Creatinine 1.84 H (0.66-1.25) mg/dL Glucose 53 L (74-99) mg/dL POC Glucose (mg/dL) (75-99) mg/dL Calcium 8.0 L (8.4-10.2) mg/dL AST 73 H (17-59) U/L Troponin I (0.000-0.034) ng/mL Total Protein 6.2 L (6.3-8.2) g/dL Albumin 3.1 L (3.5-5.0) g/dL SARS-CoV-2 (PCR) (Not Detectd) 11/10/20 11/10/20 11/10/20 Range/Units 12:49 15:26 16:50 RBC (4.30-5.90) m/uL Hct (39.0-53.0) % Lymphocytes # (1.0-4.8) k/uL PT (9.0-12.0) sec INR (<1.2) BUN (9-20) mg/dL Creatinine (0.66-1.25) mg/dL Glucose (74-99) mg/dL POC Glucose (mg/dL) 62 L (75-99) mg/dL Calcium (8.4-10.2) mg/dL AST (17-59) U/L Troponin I 0.088 H* (0.000-0.034) ng/mL Total Protein (6.3-8.2) g/dL Albumin (3.5-5.0) g/dL SARS-CoV-2 (PCR) Detected A (Not Detectd) Thrombosis Risk Factor Assmnt - DVT/VTE Prophylaxis DVT/VTE Prophylaxis: Pharmacologic Prophylaxis ordered - Choose All That Apply Any of the Below Risk Factors Present?: Yes Each Factor Represents 1 point: Serious lung disease incl. pneumonia (< 1month) Other Risk Factors: Yes Each Risk Factor Represents 3 Points: Age 75 years or older Thrombosis Risk Factor Assessment Total Risk Factor Score: 4 Thrombosis Risk Factor Assessment Level: Moderate Risk Assessment and Plan Assessment: Acute COVID-19 pneumonia Acute diarrhea likely due to viral infection. Rule out C. difficile. Acute CHF with possible diastolic dysfunction Elevated troponin level due to demand mismatch Recent history of pneumonia and was discharged on 10/31/2020 Coronary artery disease history of bypass graft -Paroxysmal atrial fibrillation, chronically on anticoagulation -Diabetes mellitus type 2 on oral hypoglycemic, uncontrolled with hyperglycemia -acute kidney injury. pre renal and from cardiorenal syndrome. -Suspect underlying chronic kidney disease stage III from diabetic nephropathy and nephrosclerosis Plan: Patient will be continued oxygen supplementation and titrate down FiO2. Will start on dexamethasone 6 mg daily. Patient is already on anticoagulation with Eliquis. Will check inflammatory markers and follow-up closely. Continue with IV Lasix 20 mg 3 times daily. Cardiology was consulted. Continue with vitamin supplementation and contact, droplet precautions. Prognosis guarded at this time. Stool sample for C. difficile was sent. Time with Patient: Greater than 30
[2020-11-10] MEDS: dexAMETHasone 2 MG TAB PO SCH (23:24)
[2020-11-11 06:21] LABS: Glucose,Whole Blood 94 mg/dL (75-99)
[2020-11-11] MEDS: INSULIN ASPART (NovoLOG) 100 UNIT/ML VIAL SQ SCH ×4 (06:33→20:21)
[2020-11-11 08:22] LABS: Basophils % (A) 1 %; Eosinophils % (A) 0 %; HCT 35.2 % (39.0-53.0); HGB 12.4 gm/dL (13.0-17.5); Lymphocytes # (A) 0.8 k/uL (1.0-4.8); Lymphocytes % (A) 15 %; MCH 32.4 pg (25.0-35.0); MCHC 35.2 g/dL (31.0-37.0); MCV 92.1 fL (80.0-100.0); Mean Platelet Volume 8.1; Monocytes # (A) 0.3 k/uL (0-1.0); Monocytes % (A) 5 %; Neutrophils # (A) 4.6 k/uL (1.3-7.7); Neutrophils % (A) 78 %; Platelet Count 170 k/uL (150-450); RBC 3.83 m/uL (4.30-5.90); RDW 12.1 % (11.5-15.5); WBC 5.8 k/uL (3.8-10.6)
[2020-11-11 08:40] LABS: Potassium 3.3 mmol/L (3.5-5.1)
[2020-11-11] MEDS: ASCORBIC ACID 500 MG TAB PO SCH (09:09)
[2020-11-11] MEDS: FUROSEMIDE 10 MG/ML 2 ML VIAL IV SCH ×3 (09:09→23:17)
[2020-11-11] MEDS: dexAMETHasone 2 MG TAB PO SCH (09:09)
[2020-11-11] MEDS: APIXABAN 2.5 MG TABLET PO SCH ×2 (09:09→20:21)
[2020-11-11] MEDS: MULTIVITAMINS, THERA 1 EACH TAB PO SCH (09:09)
[2020-11-11] MEDS: METOPROLOL TARTRATE 50 MG TAB PO SCH ×2 (09:09→20:21)
[2020-11-11] MEDS: ZINC SULFATE 220 MG CAP PO SCH (09:09)
[2020-11-11 10:53] LABS: C Reactive Protein 129.9 mg/L (<10.0)
[2020-11-11 11:50] LABS: Glucose,Whole Blood 142 mg/dL (75-99)
--- NOTE | 2020-11-11 13:43 | P.CRDCN ---
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 Patient follows in the office with Dr. Gallardo. We have been asked to see the patient in consultation for elevated troponins. Patient presented to the emergency room with a chief complaint of shortness of breath. He was found to be positive for Covid 19. Patient is currently on 5 L nasal cannula with oxygen saturations greater than 92%. Blood pressure 104/56. Heart rate in the 50s and 60s. He is afebrile. DIAGNOSTICS: EKG reveals ventricular paced rhythm Chest xray cardiomegaly with interstitial opacity, patchy bibasilar opacities, and trace pleural effusions. Correlate for CHF with interstitial pulmonary edema Laboratory data: WBC 5.8. Hemoglobin 12.4. Platelet count 170. D-dimer 0.42. Sodium 138. Potassium 3.3. BUN 48. Creatinine 2.06. Troponin 0.088. BNP 6000. Current home cardiac medications include Norvasc 10 mg daily, Zocor 20mg daily, metoprolol 50mg twice a day, Eliquis 2.5 mg twice a day, and Lasix 20 mg daily Echocardiogram completed 10/28/2020 revealed ejection fraction 60-65%, and mild tricuspid regurgitation REVIEW OF SYSTEMS: Thorough review of systems not completed secondary to limited evaluation/examination and due to Covid19 PHYSICAL EXAM: Thorough physical exam not completed secondary to limited evaluation/examination and due to Covid19 ASSESSMENT: Acute Covid 19 pneumonia Acute hypoxic respiratory failure, secondary to above Abnormal troponin, secondary to covid 19, no signs of acute coronary syndrome History of paroxysmal atrial fibrillation with previous cardioversion, on anticoagulation with Eliquis Chronic kidney disease Coronary artery disease with previous CABG 22000 Acute exacerbation of chronic diastolic congestive heart failure, EF 60-65% Hypertension Hyperlipidemia Diabetes mellitus PLAN: Resume home cardiac medications Continue telemetry monitoring Obtain limited echo to assess LV function Continue IV Lasix Daily weight Accurate I&O Further recommendations pending patient's course Nurse practitioner note has been reviewed by physician. Signing provider agrees with the documented findings, assessment, and plan of care. Past Medical History Past Medical History: Atrial Fibrillation, Diabetes Mellitus Additional Past Medical History / Comment(s): pneumonia History of Any Multi-Drug Resistant Organisms: None Reported Past Surgical History: Coronary Bypass/CABG, Pacemaker Past Anesthesia/Blood Transfusion Reactions: No Reported Reaction Type of Cardiac Device: Permanent Pacemaker Device Placement Date:: about 3 years ago Past Psychological History: No Psychological Hx Reported Smoking Status: Never smoker Past Alcohol Use History: None Reported Past Drug Use History: None Reported - Past Family History Mother Family Medical History: Myocardial Infarction ([place]) Father Family Medical History: Myocardial Infarction ([place]) Medications and Allergies Home Medications Medication Instructions Recorded Confirmed Type Furosemide [Lasix] 20 mg PO DAILY 10/28/20 11/10/20 History Metoprolol Tartrate [Lopressor] 50 mg PO BID 10/28/20 11/10/20 History Multivitamins, Thera [Multivitamin 1 tab PO DAILY 10/28/20 11/10/20 History (formulary)] Simvastatin [Zocor] 20 mg PO HS 10/28/20 11/10/20 History glipiZIDE [Glucotrol] 10 mg PO AC-BRKFST 10/28/20 11/10/20 History Apixaban [Eliquis] 2.5 mg PO BID #60 tablet 10/31/20 11/10/20 Rx amLODIPine [Norvasc] 10 mg PO DAILY #30 tab 10/31/20 11/10/20 Rx Allergies Allergy/AdvReac Type Severity Reaction Status Date / Time No Known Allergies Allergy Verified 11/10/20 12:23 Physical Exam Vitals: Vital Signs Temp Pulse Pulse Resp BP BP Pulse Ox 11/11/20 11:39 60 20 96/52 94 L 11/11/20 08:00 97.4 F L 55 L 22 104/56 89 L 11/11/20 04:00 98.4 F 74 28 H 91/58 95 11/11/20 00:00 97.7 F 60 22 98/55 94 L 11/10/20 22:41 91 L 11/10/20 20:00 99.1 F 60 20 105/63 100 11/10/20 18:30 98.6 F 60 24 113/79 100 11/10/20 18:00 60 17 111/65 98 11/10/20 17:30 59 L 25 H 121/60 100 11/10/20 17:00 60 26 H 113/59 98 11/10/20 16:30 59 L 24 112/58 100 11/10/20 16:00 60 21 125/63 98 11/10/20 15:30 60 20 125/63 91 L 11/10/20 14:00 60 18 126/77 88 L Intake and Output 11/10/20 11/11/20 11/11/20 22:59 06:59 14:59 Output Total 200 Balance -200 Output: Urine 200 Other: Voiding Method Urinal Urinal # Voids 1 Weight 81.647 kg 86 kg Results 11/11/20 07:38 11/11/20 07:38 Cardiac Enzymes 11/11/20 Range/Units 07:38 Lactate Dehydrogenase 1170 H (313-618) U/L CBC 11/11/20 Range/Units 07:38 WBC 5.8 (3.8-10.6) k/uL RBC 3.83 L (4.30-5.90) m/uL Hgb 12.4 L (13.0-17.5) gm/dL Hct 35.2 L (39.0-53.0) % Plt Count 170 (150-450) k/uL Comprehensive Metabolic Panel 11/11/20 Range/Units 07:38 Sodium 138 (137-145) mmol/L Potassium 3.3 L (3.5-5.1) mmol/L Chloride 106 (98-107) mmol/L Carbon Dioxide 24 (22-30) mmol/L BUN 48 H (9-20) mg/dL Creatinine 2.06 H (0.66-1.25) mg/dL Glucose 97 (74-99) mg/dL Calcium 8.0 L (8.4-10.2) mg/dL Current Medications Generic Name Dose Route Start Last Admin Trade Name Freq PRN Reason Stop Dose Admin Albuterol Sulfate 2 puff 11/10/20 22:46 Albuterol Hfa Inhaler INHALATION RT-QID PRN Shortness Of Breath Or Wheezing Apixaban 2.5 mg 11/10/20 21:00 11/11/20 09:09 Apixaban 2.5 Mg Tablet PO 2.5 mg BID SANDIP Administration Ascorbic Acid 500 mg 11/11/20 09:00 11/11/20 09:09 Ascorbic Acid 500 Mg Tab PO 500 mg DAILY SANDIP Administration Atorvastatin Calcium 10 mg 11/10/20 21:00 11/10/20 21:06 Atorvastatin 10 Mg Tab PO 10 mg HS SANDIP Administration Dexamethasone 6 mg 11/10/20 22:45 11/11/20 09:09 Dexamethasone 2 Mg Tab PO 6 mg DAILY SANDIP Administration Furosemide 20 mg 11/10/20 16:00 11/11/20 09:09 Furosemide 10 Mg/Ml 2 Ml Vial IV 20 mg Q8HR SANDIP Administration Insulin Aspart 0 unit 11/10/20 17:30 11/11/20 12:58 Insulin Aspart (Novolog) 100 Unit/Ml Vial SQ Not Given ACHS SANDIP Protocol Metoprolol Tartrate 50 mg 11/10/20 21:00 11/11/20 09:09 Metoprolol Tartrate 50 Mg Tab PO 50 mg BID SANDIP Administration Multivitamins 1 each 11/11/20 09:00 11/11/20 09:09 Multivitamins, Thera 1 Each Tab PO 1 each DAILY SANDIP Administration Zinc Sulfate 220 mg 11/11/20 09:00 11/11/20 09:09 Zinc Sulfate 220 Mg Cap PO 220 mg DAILY SANDIP Administration Intake and Output 11/10/20 11/11/20 11/11/20 22:59 06:59 14:59 Output Total 200 Balance -200 Output: Urine 200 Other: Voiding Method Urinal Urinal # Voids 1 Weight 81.647 kg 86 kg 11/11/20 07:38 11/11/20 07:38
[2020-11-11 13:56] VITALS: BMI 25.7
[2020-11-11] MEDS ORDERED: Potassium Replacement Protocol 1 EACH MISC MISCELLANE PRN (14:03)
[2020-11-11] MEDS: POTASSIUM CHLORIDE ER 20 MEQ TAB.ER PO SCH ×2 (16:42→16:43)
[2020-11-11 16:55] LABS: Glucose,Whole Blood 253 mg/dL (75-99)
--- NOTE | 2020-11-11 17:57 | ECHOF ---
Referral Reason:LV function MEASUREMENTS -------- HEIGHT: 182.9 cm WEIGHT: 85.7 kg BP: 91/58 Ao Diam: 3.7 cm (2.0 - 3.7) AV Cusp: 2.2 cm (1.5 - 2.6) RAP: 5.00 mmHg RVSP: 28.98 mmHg FINDINGS -------- Sinus rhythm. Limited Study Overall left ventricular systolic function is normal with, an EF between 55 - 60 %. There is mild aortic valve sclerosis. There is mild aortic regurgitation. Mild mitral annular calcification present. Mild mitral regurgitation is present. Mild tricuspid regurgitation present. Right ventricular systolic pressure is normal at < 35 mmHg. The pulmonic valve was not well visualized. There is no pericardial effusion. CONCLUSIONS -------- 1. Overall left ventricular systolic function is normal with, an EF between 55 - 60 %. 2. There is mild aortic regurgitation. 3. Mild mitral regurgitation is present. 4. Mild tricuspid regurgitation present. 5. There is no pericardial effusion. [employer] MARKETING DIRECTOR: Yeny Arriaza RDCS
[2020-11-11 18:19] LABS: Ferritin 1310.7 ng/mL (22.0-322.0)
[2020-11-11 20:17] LABS: Glucose,Whole Blood 368 mg/dL (75-99)
[2020-11-11] MEDS: ATORVASTATIN 10 MG TAB PO SCH (20:21)
[2020-11-12 05:52] LABS: Glucose,Whole Blood 313 mg/dL (75-99)
[2020-11-12] MEDS: INSULIN ASPART (NovoLOG) 100 UNIT/ML VIAL SQ SCH ×4 (06:29→21:02)
[2020-11-12] MEDS: dexAMETHasone 2 MG TAB PO SCH (09:18)
[2020-11-12] MEDS: FUROSEMIDE 10 MG/ML 2 ML VIAL IV SCH (09:19)
[2020-11-12] MEDS: ASCORBIC ACID 500 MG TAB PO SCH (09:19)
[2020-11-12] MEDS: METOPROLOL TARTRATE 50 MG TAB PO SCH ×2 (09:20→21:02)
[2020-11-12] MEDS: APIXABAN 2.5 MG TABLET PO SCH ×2 (09:20→21:02)
[2020-11-12] MEDS: MULTIVITAMINS, THERA 1 EACH TAB PO SCH (09:20)
[2020-11-12] MEDS: ZINC SULFATE 220 MG CAP PO SCH (09:20)
--- NOTE | 2020-11-12 11:08 | P.CNPUL ---
History of Present Illness Consult date: 11/12/20 Reason for consult: dyspnea, hypoxemia, abnormal CXR/CT Chief complaint: Dyspnea, diarrhea, acute hypoxic respiratory failure History of present illness: 84-year-old male patient of Dr. Coreas has medical history of atrial fibrillation, diabetes mellitus type 2, coronary artery disease status post coronary artery bypass grafting 3 years ago, hx of myocardial infarction, nonsmoker, and a permanent pacemaker implantation, who was recently hospitalized on 10/28/2020 through 10/31/2020 for acute right lower lobe pneu monia, community-acquired pneumonia, treated with azithromycin and Rocephin. Patient was discharged home on Ceftin. After going home he developed diarrhea, and in last 5-7 days his breathing was also becoming more labored, denied any fever or chills, he is normally not oxygen dependent, he came into the emergency department ending of increased shortness of breath, weakness. Chest pain, chest discomfort, no palpitations, no fever chills. X-ray showed cardiomegaly with interstitial opacity, patchy bibasilar opacities and trace pleural effusions. His COVID 19 PCR was found to be positive, he also had increased at 6000, troponin leak to 0.08. Influenza and RSV were negative. White blood cell count 8.9, hemoglobin 9.2, down to 0.8, INR is 1.2, d-dimer is 0.45, creatinine 1.84. Patient initially was started on oral Decadron for COVID 19 related pneumonitis, however his oxygenation continued to deteriorate and increased from 4 liters of nasal cannula to 15 L in 24 hours. His O2 sat is 90-93%, he is feeling more short of breath, his been afebrile, blood pressure has been stable, on oral Decadron, he continues to get IV Lasix 20 mg every 8 hours, his fluid balance is difficult to estimate, the patient is refusing an indwelling catheter, and he is incontinent into brief. Is down by 0.5 kg in the last 24 hours, no evidence of significant lower extremity edema, no truncal edema. Review of Systems All systems: negative Constitutional: Reports weakness, Denies chills, Denies fever Eyes: denies blurred vision, denies pain Ears, nose, mouth and throat: Denies headache, Denies sore throat Cardiovascular: Reports decreased exercise tolerance, Denies chest pain, Denies shortness of breath Respiratory: Reports dyspnea, Reports respiratory infections, Denies cough Gastrointestinal: Reports diarrhea, Denies abdominal pain, Denies nausea, Denies vomiting Musculoskeletal: Denies myalgias Integumentary: Denies pruritus, Denies rash Neurological: Denies numbness, Denies weakness Psychiatric: Denies anxiety, Denies depression Endocrine: Denies fatigue, Denies weight change Past Medical History Past Medical History: Atrial Fibrillation, Diabetes Mellitus Additional Past Medical History / Comment(s): pneumonia History of Any Multi-Drug Resistant Organisms: None Reported Past Surgical History: Coronary Bypass/CABG, Pacemaker Past Anesthesia/Blood Transfusion Reactions: No Reported Reaction Type of Cardiac Device: Permanent Pacemaker Device Placement Date:: about 3 years ago Past Psychological History: No Psychological Hx Reported Smoking Status: Never smoker Past Alcohol Use History: None Reported Past Drug Use History: None Reported - Past Family History Mother Family Medical History: Myocardial Infarction ([place]) Father Family Medical History: Myocardial Infarction ([place]) Medications and Allergies Home Medications Medication Instructions Recorded Confirmed Type Furosemide [Lasix] 20 mg PO DAILY 10/28/20 11/10/20 History Metoprolol Tartrate [Lopressor] 50 mg PO BID 10/28/20 11/10/20 History Multivitamins, Thera [Multivitamin 1 tab PO DAILY 10/28/20 11/10/20 History (formulary)] Simvastatin [Zocor] 20 mg PO HS 10/28/20 11/10/20 History glipiZIDE [Glucotrol] 10 mg PO AC-BRKFST 10/28/20 11/10/20 History Apixaban [Eliquis] 2.5 mg PO BID #60 tablet 10/31/20 11/10/20 Rx amLODIPine [Norvasc] 10 mg PO DAILY #30 tab 10/31/20 11/10/20 Rx Allergies Allergy/AdvReac Type Severity Reaction Status Date / Time No Known Allergies Allergy Verified 11/10/20 12:23 Physical Exam Vitals: Vital Signs Temp Pulse Resp BP Pulse Ox 11/12/20 08:00 97.8 F 66 18 119/58 90 L 11/12/20 04:00 97.9 F 60 19 115/60 93 L 11/11/20 23:53 97.3 F L 70 19 103/55 93 L 11/11/20 20:00 97.9 F 60 17 93/52 93 L 11/11/20 16:00 97.7 F 60 20 93/50 93 L 11/11/20 11:39 60 20 96/52 94 L Intake and Output 11/11/20 11/12/20 11/12/20 22:59 06:59 14:59 Intake Total 125 1000 Output Total 200 Balance 125 800 Intake: Oral 125 1000 Output: Urine 200 Other: Voiding Method Urinal Weight 85.5 kg GENERAL EXAM: Alert, very pleasant, 84-year-old white male, on 15 L of oxygen and the pulse ox of 90-93%, comfortable in no apparent distress. HEAD: Normocephalic/atraumatic. EYES: Normal reaction of pupils, equal size. Conjunctiva pink, sclera white. NOSE: Clear with pink turbinates. THROAT: No erythema or exudates. NECK: No masses, no JVD, no thyroid enlargement, no adenopathy. CHEST: No chest wall deformity. Symmetrical expansion. LUNGS: Equal air entry with no crackles, wheeze, rhonchi or dullness. CVS: Regular rate and rhythm, normal S1 and S2, no gallops, no murmurs, no rubs ABDOMEN: Soft, nontender. No hepatosplenomegaly, normal bowel sounds, no guarding or rigidity. EXTREMITIES: No clubbing, no edema, no cyanosis, 2+ pulses and upper and lower extremities. MUSCULOSKELETAL: Muscle strength and tone normal. SPINE: No scoliosis or deformity SKIN: No rashes CENTRAL NERVOUS SYSTEM: Alert and oriented -3. No focal deficits, tone is normal in all 4 extremities. PSYCHIATRIC: Alert and oriented -3. Appropriate affect. Intact judgment and insight. Results - Laboratory Findings CBC and BMP: 11/11/20 07:38 11/11/20 07:38 PT/INR, D-dimer PT 12.6 sec (9.0-12.0) H 11/10/20 12:49 INR 1.2 (<1.2) H 11/10/20 12:49 D-Dimer 0.42 mg/L FEU (<0.60) 11/11/20 07:38 Abnormal lab findings: Abnormal Labs 11/10/20 11/10/20 11/10/20 12:49 12:49 12:49 RBC 4.19 L Hgb Hct 37.6 L Lymphocytes # 0.8 L PT 12.6 H INR 1.2 H Potassium BUN 36 H Creatinine 1.84 H Glucose 53 L POC Glucose (mg/dL) Calcium 8.0 L Ferritin AST 73 H Lactate Dehydrogenase Troponin I C-Reactive Protein Total Protein 6.2 L Albumin 3.1 L SARS-CoV-2 (PCR) 11/10/20 11/10/20 11/10/20 12:49 15:26 16:50 RBC Hgb Hct Lymphocytes # PT INR Potassium BUN Creatinine Glucose POC Glucose (mg/dL) 62 L Calcium Ferritin AST Lactate Dehydrogenase Troponin I 0.088 H* C-Reactive Protein Total Protein Albumin SARS-CoV-2 (PCR) Detected A 11/11/20 11/11/20 11/11/20 07:38 07:38 11:46 RBC 3.83 L Hgb 12.4 L Hct 35.2 L Lymphocytes # 0.8 L PT INR Potassium 3.3 L BUN 48 H Creatinine 2.06 H Glucose POC Glucose (mg/dL) 142 H Calcium 8.0 L Ferritin 1310.7 H AST Lactate Dehydrogenase 1170 H Troponin I C-Reactive Protein 129.9 H Total Protein Albumin SARS-CoV-2 (PCR) 11/11/20 11/11/20 11/12/20 16:49 20:15 05:49 RBC Hgb Hct Lymphocytes # PT INR Potassium BUN Creatinine Glucose POC Glucose (mg/dL) 253 H 368 H 313 H Calcium Ferritin AST Lactate Dehydrogenase Troponin I C-Reactive Protein Total Protein Albumin SARS-CoV-2 (PCR) - Diagnostic Findings Chest x-ray: report reviewed, image reviewed Assessment and Plan Plan: Assessment #1.Acute hypoxic respiratory failure, significantly progressed the last 24 hours, and patient's oxygen demand went from 4 L nasal cannula to 15 L nasal cannula. This is related to acute COVID 19 pneumonitis, and possibility of acute exacerbation of CHF Diastolic dysfunction #2. Recent admission for community-acquired pneumonia, from 10/28/2020 through 10/31/2020, patient was treated with Rocephin and azithromycin, discharged home on oral Ceftin #3. Chronic atrial fibrillation, on Eliquis, permanent pacemaker implantation #4. Coronary artery disease with previous bypass grafting 3 years ago #5. Chronic kidney disease stage III #6. Diabetes mellitus type 2 #7. Hypertension #8. Nonsmoker #9. Diarrhea, improved Plan: Continue oral anticoagulation, we will continue steroids, we will add Remdesivir, trend inflammatory markers and a d-dimer, follow-up chest x-ray tomorrow, chest x-ray shows interstitial prominence and trace pleural effusions, it could be related to CHF and COVID 19 related pneumonia. IV diuretics, monitor electrolytes and renal profile, monitor febrile pattern, work of breathing, and oxygenation pattern, clarify CODE STATUS with the patient. Obtain procalcitonin. Will follow Other recommendations based on patient's clinical co urse I performed a history & physical examination of the patient and discussed their management with my nurse practitioner, Yvette Rico. I reviewed the nurse practitioner's note and agree with the documented findings and plan of care. Lung sounds are positive for crackles bilaterally The findings and the impression was discussed with the patient. I attest to the documentation by the nurse practitioner. Time with Patient: Greater than 30
[2020-11-12] MEDS ORDERED: REMDESIVIR 200 MG in SODIUM CHLORIDE 0.9% 250 ML IVPB ONE (11:30)
[2020-11-12 12:23] LABS: Glucose,Whole Blood 436 mg/dL (75-99)
[2020-11-12 13:00] LABS: Calcium 8.3 mg/dL (8.4-10.2); Potassium 3.8 mmol/L (3.5-5.1)
[2020-11-12] MEDS ORDERED: INSULIN ASPART (NovoLOG) 100 UNIT/ML VIAL SQ ONE (13:30)
--- NOTE | 2020-11-12 14:14 | P.PN ---
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 Patient follows in the office with Dr. Gallardo. We have been asked to see the patient in consultation for elevated troponins. Patient presented to the emergency room with a chief complaint of shortness of breath. He was found to be positive for Covid 19. Patient is currently on 5 L nasal cannula with oxygen saturations greater than 92%. Blood pressure 104/56. Heart rate in the 50s and 60s. He is afebrile. 11/12/2020 Patient remains on 15 L high flow nasal cannula with oxygen saturations greater than 90%. Blood pressure 105/57. Heart rate in the 60s. Patient remains on IV Lasix. Creatinine increased to 2.41 today from 2.06. Echocardiogram completed revealed ejection fraction 55-60%, mild mitral regurgitation and mild tricuspid regurgitation. PHYSICAL EXAM: Thorough physical exam not completed secondary to limited evaluation/examination and due to Covid19 ASSESSMENT: Acute Covid 19 pneumonia Acute hypoxic respiratory failure, secondary to above Abnormal troponin, secondary to covid 19, no signs of acute coronary syndrome History of paroxysmal atrial fibrillation with previous cardioversion, on anticoagulation with Eliquis Acute kidney injury Chronic kidney disease Coronary artery disease with previous CABG 2000 Acute exacerbation of chronic diastolic congestive heart failure, EF 60-65% Hypertension Hyperlipidemia Diabetes mellitus PLAN: Discontinue IV Lasix secondary to worsening kidney function. Resume home dose of oral Lasix Monitor kidney function. Repeat BMP in a.m. Pulmonary following Further recommendations pending patient's course Nurse practitioner note has been reviewed by physician. Signing provider agrees with the documented findings, assessment, and plan of care. Objective - Vital Signs Vital signs: Vital Signs Temp 97.8 F 11/12/20 08:00 Pulse 62 11/12/20 12:00 Resp 20 11/12/20 12:00 BP 105/57 11/12/20 12:00 Pulse Ox 92 L 11/12/20 12:00 Intake & Output 11/11/20 11/12/20 11/12/20 18:59 06:59 18:59 Intake Total 361 1000 Output Total 200 Balance 361 800 Weight 86 kg 85.5 kg Intake: Oral 361 1000 Output: Urine 200 Other: Voiding Method Urinal - Labs CBC & Chem 7: 11/11/20 07:38 11/12/20 11:41 Labs: Abnormal Lab Results - Last 24 Hours (Table) 11/11/20 11/11/20 11/11/20 Range/Units 07:38 16:49 20:15 Sodium (137-145) mmol/L BUN (9-20) mg/dL Creatinine (0.66-1.25) mg/dL Glucose (74-99) mg/dL POC Glucose (mg/dL) 253 H 368 H (75-99) mg/dL Calcium (8.4-10.2) mg/dL Ferritin 1310.7 H (22.0-322.0) ng/mL 11/12/20 11/12/20 11/12/20 Range/Units 05:49 11:41 12:21 Sodium 135 L (137-145) mmol/L BUN 69 H (9-20) mg/dL Creatinine 2.41 H (0.66-1.25) mg/dL Glucose 418 H (74-99) mg/dL POC Glucose (mg/dL) 313 H 436 H (75-99) mg/dL Calcium 8.3 L (8.4-10.2) mg/dL Ferritin (22.0-322.0) ng/mL Microbiology - Last 24 Hours (Table) 11/10/20 12:52 Blood Culture - Preliminary Blood No Growth after 24 hours
[2020-11-12 16:52] LABS: Glucose,Whole Blood 375 mg/dL (75-99)
[2020-11-12 20:58] LABS: Glucose,Whole Blood 213 mg/dL (75-99)
[2020-11-12] MEDS: ATORVASTATIN 10 MG TAB PO SCH (21:02)
--- NOTE | 2020-11-12 22:00 | P.PN ---
Subjective Progress Note Date: 11/11/20 Principal diagnosis: Acute COVID-19 pneumonia Patient is a 84-year-old male with a known history paroxysmal atrial fibrillation, diabetes type 2, coronary artery disease with history of CABG and pacemaker placement who was recently admitted to the hospital for pneumonia and was discharged 10/31/2020 presented to ER with complaints of shortness of breath and diarrhea for the past 2 weeks. Patient states that he did complete his antibiotic course. Denied any complaints of abdominal pain. Patient has been having worsening shortness of breath and generalized weakness. Denied any fever or chills. No cough. No chest pain or palpitations. Patient felt very weak and tired. Denied any fall. No nausea or vomiting. Chest x-ray showed cardiomegaly with interstitial opacity, patchy bibasilar opacities and trace pleural effusions. Correlate for CHF with interstitial pulmonary edema. Laboratory data showed WBC 8.9, hemoglobin 13.1 platelets 165 D-dimer is 0.45 not elevated BUN 36 and creatinine 1.84 creatinine was 1.56 on 10/31/2020 Troponin 0 0.0889 proBNP 6000 Albumin 3.1 Patient is tested positive for COVID-19. 11/11/2020 Patient is currently resting in the bed comfortably. Requiring 4 L oxygen via nasal cannula. Continued on IV Lasix and patient is also on Decadron and anticoagulation. Cardiology is on board. 2D echocardiogram was ordered which showed ejection fraction 55 to 60% with mild AR and mild MR and TR. No pericardial effusion. Pulmonary will be consulted due to respiratory failure and Covid pneumonia. Current medications reviewed. Objective - Vital Signs Vital signs: Vital Signs Temp 97.9 F 11/12/20 20:00 Pulse 60 11/12/20 20:00 Resp 20 11/12/20 20:00 BP 117/62 11/12/20 20:00 Pulse Ox 93 L 11/12/20 20:00 Intake & Output 11/12/20 11/12/20 11/13/20 06:59 18:59 06:59 Intake Total 2120 Output Total 700 Balance 1420 Weight 85.5 kg Intake: Oral 2120 Output: Urine 700 Other: Voiding Method Urinal Urinal - Exam PHYSICAL EXAMINATION: Patient is lying in the bed comfortably, no acute distress, awake alert and oriented.Generalized weakness and tired looking.. HEENT: Normocephalic. Neck is supple. Pupils reactive. Nostrils clear. Oral cavity is moist. Ears reveal no drainage. Neck reveals no JVD, carotid bruits, or thyromegaly. CHEST EXAMINATION: Trachea is central. Symmetrical expansion. Scattered coarse breath sounds throughout. No wheezing.. CARDIAC: Normal S1, S2 with no gallops. No murmurs ABDOMEN: Soft. Bowel sounds normal. No organomegaly. No abdominal bruits. Extremities: reveal no edema. No clubbing or cyanosis Neurologically awake, alert, oriented x3 with well-coordinated movements. No focal deficits noted Skin: No rash or skin lesions. Psychiatric: Coperative. Nonsuicidal Musculoskeletal: No joint swelling or deformity. Normal range of motion. - Labs CBC & Chem 7: 11/11/20 07:38 11/12/20 11:41 Labs: Abnormal Lab Results - Last 24 Hours (Table) 11/12/20 11/12/20 11/12/20 Range/Units 05:49 11:41 11:41 Sodium 135 L (137-145) mmol/L BUN 69 H (9-20) mg/dL Creatinine 2.41 H (0.66-1.25) mg/dL Glucose 418 H (74-99) mg/dL POC Glucose (mg/dL) 313 H (75-99) mg/dL Calcium 8.3 L (8.4-10.2) mg/dL Procalcitonin 0.10 H (0.02-0.09) ng/mL 11/12/20 11/12/20 11/12/20 Range/Units 12:21 16:51 20:56 Sodium (137-145) mmol/L BUN (9-20) mg/dL Creatinine (0.66-1.25) mg/dL Glucose (74-99) mg/dL POC Glucose (mg/dL) 436 H 375 H 213 H (75-99) mg/dL Calcium (8.4-10.2) mg/dL Procalcitonin (0.02-0.09) ng/mL Microbiology - Last 24 Hours (Table) 11/10/20 12:52 Blood Culture - Preliminary Blood No Growth after 48 hours Assessment and Plan Assessment: Acute COVID-19 pneumonia Acute hypoxic respiratory failure requiring oxygen via nasal cannula currently. Acute diarrhea likely due to viral infection. RuleD out C. difficile. Acute CHF with possible diastolic dysfunction Elevated troponin level due to demand mismatch Recent history of pneumonia and was discharged on 10/31/2020 Coronary artery disease history of bypass graft -Paroxysmal atrial fibrillation, chronically on anticoagulation -Diabetes mellitus type 2 on oral hypoglycemic, uncontrolled with hyperglycemia -acute kidney injury. pre renal and from cardiorenal syndrome. -Suspect underlying chronic kidney disease stage III from diabetic nephropathy and nephrosclerosis Plan: Patient will be continued oxygen supplementation and titrate down FiO2. on dexamethasone 6 mg daily. Patient is already on anticoagulation with Eliquis. Will check inflammatory markers and follow-up closely. Continue with IV Lasix 20 mg 3 times daily. Cardiology was consulted. Continue with vitamin supplementation and contact, droplet precautions. Prognosis guarded at this time. Time with Patient: Greater than 30
--- NOTE | 2020-11-12 22:03 | P.PN ---
Subjective Progress Note Date: 11/12/20 Principal diagnosis: Acute COVID-19 pneumonia Patient is a 84-year-old male with a known history paroxysmal atrial fibrillation, diabetes type 2, coronary artery disease with history of CABG and pacemaker placement who was recently admitted to the hospital for pneumonia and was discharged 10/31/2020 presented to ER with complaints of shortness of breath and diarrhea for the past 2 weeks. Patient states that he did complete his antibiotic course. Denied any complaints of abdominal pain. Patient has been having worsening shortness of breath and generalized weakness. Denied any fever or chills. No cough. No chest pain or palpitations. Patient felt very weak and tired. Denied any fall. No nausea or vomiting. Chest x-ray showed cardiomegaly with interstitial opacity, patchy bibasilar opacities and trace pleural effusions. Correlate for CHF with interstitial pulmonary edema. Laboratory data showed WBC 8.9, hemoglobin 13.1 platelets 165 D-dimer is 0.45 not elevated BUN 36 and creatinine 1.84 creatinine was 1.56 on 10/31/2020 Troponin 0 0.0889 proBNP 6000 Albumin 3.1 Patient is tested positive for COVID-19. 11/11/2020 Patient is currently resting in the bed comfortably. Requiring 4 L oxygen via nasal cannula. Continued on IV Lasix and patient is also on Decadron and anticoagulation. Cardiology is on board. 2D echocardiogram was ordered which showed ejection fraction 55 to 60% with mild AR and mild MR and TR. No pericardial effusion. Pulmonary will be consulted due to respiratory failure and Covid pneumonia. 11/12/2020 Patient is currently awake alert with mild confusion. Oxygen requirement increased to 15 L high flow via nasal cannula and is saturating at 92%. No complaints of chest pain. No nausea vomiting. Diarrhea improved. IV Lasix has been discontinued due to worsening renal function. Patient is being continued dexamethasone and Eliquis. Patient was started on remdesivir. Cardiology and pulmonary is on board. Prognosis is guarded at this time. Patient has been afebrile. Current medications reviewed. Objective - Vital Signs Vital signs: Vital Signs Temp 97.9 F 11/12/20 20:00 Pulse 60 11/12/20 20:00 Resp 20 11/12/20 20:00 BP 117/62 11/12/20 20:00 Pulse Ox 93 L 11/12/20 20:00 Intake & Output 11/12/20 11/12/20 11/13/20 06:59 18:59 06:59 Intake Total 2120 Output Total 700 Balance 1420 Weight 85.5 kg Intake: Oral 0 Output: Urine 700 Other: Voiding Method Urinal Urinal - Exam PHYSICAL EXAMINATION: Patient is lying in the bed comfortably, no acute distress, awake alert and oriented.Generalized weakness and tired looking.. HEENT: Normocephalic. Neck is supple. Pupils reactive. Nostrils clear. Oral cavity is moist. Ears reveal no drainage. Neck reveals no JVD, carotid bruits, or thyromegaly. CHEST EXAMINATION: Trachea is central. Symmetrical expansion. Scattered coarse breath sounds throughout. No wheezing.. CARDIAC: Normal S1, S2 with no gallops. No murmurs ABDOMEN: Soft. Bowel sounds normal. No organomegaly. No abdominal bruits. Extremities: reveal no edema. No clubbing or cyanosis Neurologically awake, alert, oriented x3 with well-coordinated movements. No focal deficits noted Skin: No rash or skin lesions. Psychiatric: Coperative. Nonsuicidal Musculoskeletal: No joint swelling or deformity. Normal range of motion. - Labs CBC & Chem 7: 11/11/20 07:38 11/12/20 11:41 Labs: Abnormal Lab Results - Last 24 Hours (Table) 11/12/20 11/12/20 11/12/20 Range/Units 05:49 11:41 11:41 Sodium 135 L (137-145) mmol/L BUN 69 H (9-20) mg/dL Creatinine 2.41 H (0.66-1.25) mg/dL Glucose 418 H (74-99) mg/dL POC Glucose (mg/dL) 313 H (75-99) mg/dL Calcium 8.3 L (8.4-10.2) mg/dL Procalcitonin 0.10 H (0.02-0.09) ng/mL 11/12/20 11/12/20 11/12/20 Range/Units 12:21 16:51 20:56 Sodium (137-145) mmol/L BUN (9-20) mg/dL Creatinine (0.66-1.25) mg/dL Glucose (74-99) mg/dL POC Glucose (mg/dL) 436 H 375 H 213 H (75-99) mg/dL Calcium (8.4-10.2) mg/dL Procalcitonin (0.02-0.09) ng/mL Microbiology - Last 24 Hours (Table) 11/10/20 12:52 Blood Culture - Preliminary Blood No Growth after 48 hours Assessment and Plan Assessment: Acute COVID-19 pneumonia Acute hypoxic respiratory failure requiring oxygen 15l via nasal cannula currently. Acute diarrhea likely due to viral infection. RuleD out C. difficile. Acute CHF with possible diastolic dysfunction Elevated troponin level due to demand mismatch Recent history of pneumonia and was discharged on 10/31/2020 Coronary artery disease history of bypass graft -Paroxysmal atrial fibrillation, chronically on anticoagulation -Diabetes mellitus type 2 on oral hypoglycemic, uncontrolled with hyperglycemia -acute kidney injury. pre renal and from cardiorenal syndrome. -Suspect underlying chronic kidney disease stage III from diabetic nephropathy and nephrosclerosis Plan: Patient will be continued oxygen supplementation and titrate down FiO2. on dexamethasone 6 mg daily. Patient is already on anticoagulation with Eliquis. Continue with vitamin supplementation and contact, droplet precautions.Patient was started remdesivir. Lasix has been discontinued due to worsening renal function. Cardiology and pulmonary is following. Prognosis guarded at this time. Time with Patient: Greater than 30
[2020-11-13 06:19] LABS: Glucose,Whole Blood 172 mg/dL (75-99)
[2020-11-13] MEDS: INSULIN ASPART (NovoLOG) 100 UNIT/ML VIAL SQ SCH ×4 (06:34→20:56)
--- NOTE | 2020-11-13 08:06 | XR ---
EXAMINATION TYPE: XR chest 1V portable DATE OF EXAM: 11/13/2020 COMPARISON: 11/10/2020 INDICATION: Covid 19 TECHNIQUE: Single frontal view of the chest is obtained. FINDINGS: The heart size is borderline in size. The pulmonary vasculature is normal. Scattered infiltrates are present bilaterally in the periphery. Findings can be compatible with atypi nadno pneumonia. IMPRESSION: 1. Scattered infiltrates can be compatible with atypical pneumonia.
[2020-11-13 08:11] LABS: Basophils # (A) 0.1 k/uL (0-0.2); Basophils % (A) 1 %; Eosinophils % (A) 0 %; HGB 12.9 gm/dL (13.0-17.5); Lymphocytes # (A) 0.8 k/uL (1.0-4.8); Lymphocytes % (A) 8 %; MCH 30.7 pg (25.0-35.0); MCHC 33.8 g/dL (31.0-37.0); MCV 90.9 fL (80.0-100.0); Mean Platelet Volume 7.6; Monocytes # (A) 0.5 k/uL (0-1.0); Monocytes % (A) 5 %; Neutrophils # (A) 8.6 k/uL (1.3-7.7); Neutrophils % (A) 86 %; Platelet Count 280 k/uL (150-450); RBC 4.18 m/uL (4.30-5.90); RDW 12.1 % (11.5-15.5); WBC 10.1 k/uL (3.8-10.6)
[2020-11-13 08:36] LABS: Calcium 8.6 mg/dL (8.4-10.2); Potassium 3.7 mmol/L (3.5-5.1)
[2020-11-13 09:13] LABS: C Reactive Protein 46.3 mg/L (<10.0)
[2020-11-13] MEDS: APIXABAN 2.5 MG TABLET PO SCH ×2 (09:58→20:56)
[2020-11-13] MEDS: ASCORBIC ACID 500 MG TAB PO SCH (09:58)
[2020-11-13] MEDS: FUROSEMIDE 20 MG TAB PO SCH (09:58)
[2020-11-13] MEDS: METOPROLOL TARTRATE 50 MG TAB PO SCH ×2 (09:58→20:56)
[2020-11-13] MEDS: MULTIVITAMINS, THERA 1 EACH TAB PO SCH (09:58)
[2020-11-13] MEDS: ZINC SULFATE 220 MG CAP PO SCH (09:58)
[2020-11-13] MEDS: dexAMETHasone 2 MG TAB PO SCH (09:58)
--- NOTE | 2020-11-13 10:20 | P.PN ---
Subjective Progress Note Date: 11/13/20 84-year-old male patient of Dr. Coreas has medical history of atrial fibrillation, diabetes mellitus type 2, coronary artery disease status post coronary artery bypass grafting 3 years ago, hx of myocardial infarction, nonsmoker, and a permanent pacemaker implantation, who was recently hospitalized on 10/28/2020 through 10/31/2020 for acute right lower lobe pneumonia, community-acquired pneumonia, treated with azithromycin and Rocephin. Patient was discharged home on Ceftin. After going home he developed diarrhea, and in last 5-7 days his breathing was also becoming more labored, denied any fever or chills, he is normally not oxygen dependent, he came into the emergency department ending of increased shortness of breath, weakness. Chest pain, chest discomfort, no palpitations, no fever chills. X-ray showed cardiomegaly with interstitial opacity, patchy bibasilar opacities and trace pleural effusions. His COVID 19 PCR was found to be positive, he also had increased at 6000, troponin leak to 0.08. Influenza and RSV were negative. White blood cell count 8.9, hemoglobin 9.2, down to 0.8, INR is 1.2, d-dimer is 0.45, creatinine 1.84. Patient initially was started on oral Decadron for COVID 19 related pneumonitis, however his oxygenation continued to deteriorate and increased from 4 liters of nasal cannula to 15 L in 24 hours. His O2 sat is 90-93%, he is feeling more short of breath, his been afebrile, blood pressure has been stable, on oral Decadron, he continues to get IV Lasix 20 mg every 8 hours, his fluid balance is difficult to estimate, the patient is refusing an indwelling catheter, and he is incontinent into brief. Is down by 0.5 kg in the last 24 hours, no evidence of significant lower extremity edema, no truncal edema. On 11/13/2020 patient seen in follow-up unit, he is currently on 15 L of oxygen his pulse ox is 98%, he is mildly short of breath with exertion, denies any cough, denies any phlegm production, no chest discomfort, no palpitations. Apparently last night patient was more short of breath after an episode of to incontinence, and he became upset about it, and more short of breath and required BiPAP support. He is off BiPAP support right now, his FiO2 down to 12 L, and pulse ox remained at 96, no worsening dyspnea, and FiO2 will be turned out to 10 L. Afebrile, hemodynamically he stable, this is day 2 of his Remdesivir treatment, on oral Lasix, on Decadron 6 mg daily. On home dose of Eliquis 2.5 mg twice daily, today's d-dimer is 0.84, pro calcitonin level was at 0.10, and inflammatory markers are improving. Objective - Vital Signs Vital signs: Vital Signs Temp 97.2 F L 11/13/20 03:41 Pulse 60 11/13/20 03:41 Resp 24 11/13/20 06:59 BP 121/57 11/13/20 03:41 Pulse Ox 96 11/13/20 06:59 Intake & Output 11/12/20 11/13/20 11/13/20 18:59 06:59 18:59 Intake Total 2120 Output Total 700 200 Balance 1420 -200 Weight 84.5 kg Intake: Oral 2120 Output: Urine 700 200 Other: Voiding Method Urinal # Voids 1 - Exam GENERAL EXAM: Alert, very pleasant, 84-year-old white male, on 15 L of oxygen and the pulse ox of 98%, comfortable in no apparent distress. HEAD: Normocephalic/atraumatic. EYES: Normal reaction of pupils, equal size. Conjunctiva pink, sclera white. NOSE: Clear with pink turbinates. THROAT: No erythema or exudates. NECK: No masses, no JVD, no thyroid enlargement, no adenopathy. CHEST: No chest wall deformity. Symmetrical expansion. LUNGS: Equal air entry with no crackles, wheeze, rhonchi or dullness. CVS: Regular rate and rhythm, normal S1 and S2, no gallops, no murmurs, no rubs ABDOMEN: Soft, nontender. No hepatosplenomegaly, normal bowel sounds, no guarding or rigidity. EXTREMITIES: No clubbing, no edema, no cyanosis, 2+ pulses and upper and lower extremities. MUSCULOSKELETAL: Muscle strength and tone normal. SPINE: No scoliosis or deformity SKIN: No rashes CENTRAL NERVOUS SYSTEM: Alert and oriented -3. No focal deficits, tone is normal in all 4 extremities. PSYCHIATRIC: Alert and oriented -3. Appropriate affect. Intact judgment and insight. - Labs CBC & Chem 7: 11/13/20 07:43 11/13/20 07:43 Labs: Abnormal Lab Results - Last 24 Hours (Table) 11/12/20 11/12/20 11/12/20 Range/Units 11:41 11:41 12:21 RBC (4.30-5.90) m/uL Hgb (13.0-17.5) gm/dL Hct (39.0-53.0) % Neutrophils # (1.3-7.7) k/uL Lymphocytes # (1.0-4.8) k/uL D-Dimer (<0.60) mg/L FEU Sodium 135 L (137-145) mmol/L BUN 69 H (9-20) mg/dL Creatinine 2.41 H (0.66-1.25) mg/dL Glucose 418 H (74-99) mg/dL POC Glucose (mg/dL) 436 H (75-99) mg/dL Calcium 8.3 L (8.4-10.2) mg/dL Lactate Dehydrogenase (313-618) U/L C-Reactive Protein (<10.0) mg/L Procalcitonin 0.10 H (0.02-0.09) ng/mL 11/12/20 11/12/20 11/13/20 Range/Units 16:51 20:56 06:09 RBC (4.30-5.90) m/uL Hgb (13.0-17.5) gm/dL Hct (39.0-53.0) % Neutrophils # (1.3-7.7) k/uL Lymphocytes # (1.0-4.8) k/uL D-Dimer (<0.60) mg/L FEU Sodium (137-145) mmol/L BUN (9-20) mg/dL Creatinine (0.66-1.25) mg/dL Glucose (74-99) mg/dL POC Glucose (mg/dL) 375 H 213 H 172 H (75-99) mg/dL Calcium (8.4-10.2) mg/dL Lactate Dehydrogenase (313-618) U/L C-Reactive Protein (<10.0) mg/L Procalcitonin (0.02-0.09) ng/mL 11/13/20 11/13/20 11/13/20 Range/Units 07:43 07:43 07:43 RBC 4.18 L (4.30-5.90) m/uL Hgb 12.9 L (13.0-17.5) gm/dL Hct 38.0 L (39.0-53.0) % Neutrophils # 8.6 H (1.3-7.7) k/uL Lymphocytes # 0.8 L (1.0-4.8) k/uL D-Dimer 0.84 H (<0.60) mg/L FEU Sodium (137-145) mmol/L BUN 70 H (9-20) mg/dL Creatinine 2.00 H (0.66-1.25) mg/dL Glucose 173 H (74-99) mg/dL POC Glucose (mg/dL) (75-99) mg/dL Calcium (8.4-10.2) mg/dL Lactate Dehydrogenase 1166 H (313-618) U/L C-Reactive Protein 46.3 H (<10.0) mg/L Procalcitonin (0.02-0.09) ng/mL Microbiology - Last 24 Hours (Table) 11/10/20 12:52 Blood Culture - Preliminary Blood No Growth after 48 hours Assessment and Plan Plan: Assessment #1.Acute hypoxic respiratory failure, significantly progressed the last 24 hours, and patient's oxygen demand went from 4 L nasal cannula to 15 L nasal cannula. This is related to acute COVID 19 pneumonitis, and possibility of acute exacerbation of CHF Diastolic dysfunction #2. Recent admission for community-acquired pneumonia, from 10/28/2020 through 10/31/2020, patient was treated with Rocephin and azithromycin, discharged home on oral Ceftin #3. Chronic atrial fibrillation, on Eliquis, permanent pacemaker implantation #4. Coronary artery disease with previous bypass grafting 3 years ago #5. Chronic kidney disease stage III #6. Diabetes mellitus type 2 #7. Hypertension #8. Nonsmoker #9. Diarrhea, improved Plan: Continue current medical treatment, today is day 2 of Remdesivir, continue IV Decadron, Eliquis, long-term markers are improving, FiO2 is currently down to 10 L, no worsening dyspnea, diuretics per cardiology, diarrhea is improving. Continue weaning FiO2, follow up CXR in am I performed a history & physical examination of the patient and discussed their management with my nurse practitioner, Yvette Rico. I reviewed the nurse practitioner's note and agree with the documented findings and plan of care. Lung sounds are positive for crackles bilaterally The findings and the impression was discussed with the patient. I attest to the documentation by the nurse practitioner.
[2020-11-13 12:30] LABS: Glucose,Whole Blood 293 mg/dL (75-99)
[2020-11-13] MEDS: SODIUM CHLORIDE 0.9% 1,000 ML IV SCH (13:21)
[2020-11-13] MEDS: REMDESIVIR 100 MG in SODIUM CHLORIDE 0.9% 250 ML IVPB SCH (13:21)
--- NOTE | 2020-11-13 13:56 | P.PN ---
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 Patient follows in the office with Dr. Gallardo. We have been asked to see the patient in consultation for elevated troponins. Patient presented to the emergency room with a chief complaint of shortness of breath. He was found to be positive for Covid 19. Patient is currently on 5 L nasal cannula with oxygen saturations greater than 92%. Blood pressure 104/56. Heart rate in the 50s and 60s. He is afebrile. 11/12/2020 Patient remains on 15 L high flow nasal cannula with oxygen saturations greater than 90%. Blood pressure 105/57. Heart rate in the 60s. Patient remains on IV Lasix. Creatinine increased to 2.41 today from 2.06. Echocardiogram completed revealed ejection fraction 55-60%, mild mitral regurgitation and mild tricuspid regurgitation. 11/13/2020 Patient remains on 15 L nasal cannula with oxygen saturations greater than 92%. Blood pressure 103/54. Heart rate in the 60s. Lasix was transitioned to 20 mg PO daily. Creatinine today is 2.0. Chest x-ray this morning reveals scattered infiltrates compatible with atypical pneumonia. PHYSICAL EXAM: Thorough physical exam not completed secondary to limited evaluation/examination and due to Covid19 ASSESSMENT: Acute Covid 19 pneumonia Acute hypoxic respiratory failure, secondary to above Abnormal troponin, secondary to covid 19, no signs of acute coronary syndrome History of paroxysmal atrial fibrillation with previous cardioversion, on anticoagulation with Eliquis Acute kidney injury Chronic kidney disease Coronary artery disease with previous CABG 22000 Acute exacerbation of chronic diastolic congestive heart failure, EF 60-65% Hypertension Hyperlipidemia Diabetes mellitus PLAN: Continue current cardiac medications Accurate I&O Daily weights Monitor kidney function. Repeat BMP in a.m. Pulmonary following Further recommendations pending patient's course Nurse practitioner note has been reviewed by physician. Signing provider agrees with the documented findings, assessment, and plan of care. Objective - Vital Signs Vital signs: Vital Signs Temp 97.4 F L 11/13/20 08:00 Pulse 60 11/13/20 08:00 Resp 24 11/13/20 06:59 BP 103/54 11/13/20 08:00 Pulse Ox 95 11/13/20 08:00 Intake & Output 11/12/20 11/13/20 11/13/20 18:59 06:59 18:59 Intake Total 2120 540 Output Total 700 200 Balance 1420 -200 540 Weight 84.5 kg Intake: Oral 2120 540 Output: Urine 700 200 Other: Voiding Method Urinal # Voids 1 - Labs CBC & Chem 7: 11/13/20 07:43 11/13/20 07:43 Labs: Abnormal Lab Results - Last 24 Hours (Table) 11/12/20 11/12/20 11/12/20 Range/Units 11:41 16:51 20:56 RBC (4.30-5.90) m/uL Hgb (13.0-17.5) gm/dL Hct (39.0-53.0) % Neutrophils # (1.3-7.7) k/uL Lymphocytes # (1.0-4.8) k/uL D-Dimer (<0.60) mg/L FEU BUN (9-20) mg/dL Creatinine (0.66-1.25) mg/dL Glucose (74-99) mg/dL POC Glucose (mg/dL) 375 H 213 H (75-99) mg/dL Lactate Dehydrogenase (313-618) U/L C-Reactive Protein (<10.0) mg/L Procalcitonin 0.10 H (0.02-0.09) ng/mL 11/13/20 11/13/20 11/13/20 Range/Units 06:09 07:43 07:43 RBC 4.18 L (4.30-5.90) m/uL Hgb 12.9 L (13.0-17.5) gm/dL Hct 38.0 L (39.0-53.0) % Neutrophils # 8.6 H (1.3-7.7) k/uL Lymphocytes # 0.8 L (1.0-4.8) k/uL D-Dimer 0.84 H (<0.60) mg/L FEU BUN (9-20) mg/dL Creatinine (0.66-1.25) mg/dL Glucose (74-99) mg/dL POC Glucose (mg/dL) 172 H (75-99) mg/dL Lactate Dehydrogenase (313-618) U/L C-Reactive Protein (<10.0) mg/L Procalcitonin (0.02-0.09) ng/mL 11/13/20 11/13/20 Range/Units 07:43 12:28 RBC (4.30-5.90) m/uL Hgb (13.0-17.5) gm/dL Hct (39.0-53.0) % Neutrophils # (1.3-7.7) k/uL Lymphocytes # (1.0-4.8) k/uL D-Dimer (<0.60) mg/L FEU BUN 70 H (9-20) mg/dL Creatinine 2.00 H (0.66-1.25) mg/dL Glucose 173 H (74-99) mg/dL POC Glucose (mg/dL) 293 H (75-99) mg/dL Lactate Dehydrogenase 1166 H (313-618) U/L C-Reactive Protein 46.3 H (<10.0) mg/L Procalcitonin (0.02-0.09) ng/mL Microbiology - Last 24 Hours (Table) 11/10/20 12:52 Blood Culture - Preliminary Blood No Growth after 48 hours
[2020-11-13 17:04] LABS: Glucose,Whole Blood 363 mg/dL (75-99)
[2020-11-13 20:43] LABS: Glucose,Whole Blood 401 mg/dL (75-99)
[2020-11-13] MEDS: ATORVASTATIN 10 MG TAB PO SCH (20:56)
--- NOTE | 2020-11-14 00:50 | P.PN ---
Subjective Progress Note Date: 11/13/20 Principal diagnosis: Acute COVID-19 pneumonia Patient is a 84-year-old male with a known history paroxysmal atrial fibrillation, diabetes type 2, coronary artery disease with history of CABG and pacemaker placement who was recently admitted to the hospital for pneumonia and was discharged 10/31/2020 presented to ER with complaints of shortness of breath and diarrhea for the past 2 weeks. Patient states that he did complete his antibiotic course. Denied any complaints of abdominal pain. Patient has been having worsening shortness of breath and generalized weakness. Denied any fever or chills. No cough. No chest pain or palpitations. Patient felt very weak and tired. Denied any fall. No nausea or vomiting. Chest x-ray showed cardiomegaly with interstitial opacity, patchy bibasilar opacities and trace pleural effusions. Correlate for CHF with interstitial pulmonary edema. Laboratory data showed WBC 8.9, hemoglobin 13.1 platelets 165 D-dimer is 0.45 not elevated BUN 36 and creatinine 1.84 creatinine was 1.56 on 10/31/2020 Troponin 0 0.0889 proBNP 6000 Albumin 3.1 Patient is tested positive for COVID-19. 11/11/2020 Patient is currently resting in the bed comfortably. Requiring 4 L oxygen via nasal cannula. Continued on IV Lasix and patient is also on Decadron and anticoagulation. Cardiology is on board. 2D echocardiogram was ordered which showed ejection fraction 55 to 60% with mild AR and mild MR and TR. No pericardial effusion. Pulmonary will be consulted due to respiratory failure and Covid pneumonia. 11/12/2020 Patient is currently awake alert with mild confusion. Oxygen requirement increased to 15 L high flow via nasal cannula and is saturating at 92%. No complaints of chest pain. No nausea vomiting. Diarrhea improved. IV Lasix has been discontinued due to worsening renal function. Patient is being continued dexamethasone and Eliquis. Patient was started on remdesivir. Cardiology and pulmonary is on board. Prognosis is guarded at this time. Patient has been afebrile. 11/13/2020 Patient is currently sitting the chair comfortably. No complaints of chest pain or worsening shortness of breath. On high flow oxygen at 9 L today. Patient has been afebrile. Currently being continued Lasix 40 mg daily, dexamethasone and remdesivir course. Pulmonary and cardiology is on board. Chest x-ray showed scattered infiltrates compatible with atypical pneumonia. Current medications reviewed. Objective - Vital Signs Vital signs: Vital Signs Temp 97.4 F L 11/13/20 08:00 Pulse 60 11/13/20 16:00 Resp 24 11/13/20 06:59 BP 114/63 11/13/20 16:00 Pulse Ox 93 L 11/13/20 16:00 Intake & Output 11/13/20 11/13/20 11/14/20 06:59 18:59 06:59 Intake Total 1320 Output Total 200 300 Balance -200 1020 Weight 84.5 kg Intake: Oral 1320 Output: Urine 200 300 Other: Voiding Method Urinal # Voids 1 1 - Exam PHYSICAL EXAMINATION: Patient is lying in the bed comfortably, no acute distress, awake alert and oriented.Generalized weakness and tired looking.. HEENT: Normocephalic. Neck is supple. Pupils reactive. Nostrils clear. Oral cavity is moist. Ears reveal no drainage. Neck reveals no JVD, carotid bruits, or thyromegaly. CHEST EXAMINATION: Trachea is central. Symmetrical expansion. Scattered coarse breath sounds throughout. No wheezing.. CARDIAC: Normal S1, S2 with no gallops. No murmurs ABDOMEN: Soft. Bowel sounds normal. No organomegaly. No abdominal bruits. Extremities: reveal no edema. No clubbing or cyanosis Neurologically awake, alert, oriented x3 with well-coordinated movements. No focal deficits noted Skin: No rash or skin lesions. Psychiatric: Coperative. Nonsuicidal Musculoskeletal: No joint swelling or deformity. Normal range of motion. - Labs CBC & Chem 7: 11/13/20 07:43 11/13/20 07:43 Labs: Abnormal Lab Results - Last 24 Hours (Table) 11/12/20 11/12/20 11/13/20 Range/Units 11:41 20:56 06:09 RBC (4.30-5.90) m/uL Hgb (13.0-17.5) gm/dL Hct (39.0-53.0) % Neutrophils # (1.3-7.7) k/uL Lymphocytes # (1.0-4.8) k/uL D-Dimer (<0.60) mg/L FEU BUN (9-20) mg/dL Creatinine (0.66-1.25) mg/dL Glucose (74-99) mg/dL POC Glucose (mg/dL) 213 H 172 H (75-99) mg/dL Lactate Dehydrogenase (313-618) U/L C-Reactive Protein (<10.0) mg/L Procalcitonin 0.10 H (0.02-0.09) ng/mL 11/13/20 11/13/20 11/13/20 Range/Units 07:43 07:43 07:43 RBC 4.18 L (4.30-5.90) m/uL Hgb 12.9 L (13.0-17.5) gm/dL Hct 38.0 L (39.0-53.0) % Neutrophils # 8.6 H (1.3-7.7) k/uL Lymphocytes # 0.8 L (1.0-4.8) k/uL D-Dimer 0.84 H (<0.60) mg/L FEU BUN 70 H (9-20) mg/dL Creatinine 2.00 H (0.66-1.25) mg/dL Glucose 173 H (74-99) mg/dL POC Glucose (mg/dL) (75-99) mg/dL Lactate Dehydrogenase 1166 H (313-618) U/L C-Reactive Protein 46.3 H (<10.0) mg/L Procalcitonin (0.02-0.09) ng/mL 11/13/20 11/13/20 Range/Units 12:28 17:02 RBC (4.30-5.90) m/uL Hgb (13.0-17.5) gm/dL Hct (39.0-53.0) % Neutrophils # (1.3-7.7) k/uL Lymphocytes # (1.0-4.8) k/uL D-Dimer (<0.60) mg/L FEU BUN (9-20) mg/dL Creatinine (0.66-1.25) mg/dL Glucose (74-99) mg/dL POC Glucose (mg/dL) 293 H 363 H (75-99) mg/dL Lactate Dehydrogenase (313-618) U/L C-Reactive Protein (<10.0) mg/L Procalcitonin (0.02-0.09) ng/mL Microbiology - Last 24 Hours (Table) 11/10/20 12:52 Blood Culture - Preliminary Blood No Growth after 72 hours Assessment and Plan Assessment: Acute COVID-19 pneumonia Acute hypoxic respiratory failure requiring oxygen 8L via nasal cannula currently. Acute diarrhea likely due to viral infection. RuleD out C. difficile. Acute CHF with diastolic dysfunction Elevated troponin level due to demand mismatch Recent history of pneumonia and was discharged on 10/31/2020 Coronary artery disease history of bypass graft -Paroxysmal atrial fibrillation, chronically on anticoagulation -Diabetes mellitus type 2 on oral hypoglycemic, uncontrolled with hyperglycemia -acute kidney injury. pre renal and from cardiorenal syndrome. -Suspect underlying chronic kidney disease stage III from diabetic nephropathy and nephrosclerosis Plan: Patient will be continued oxygen supplementation and titrate down FiO2. on dexamethasone 6 mg daily. Patient is already on anticoagulation with Eliquis. Continue with vitamin supplementation and contact, droplet precautions.Patient was started remdesivir.Continue with oral Lasix. Monitor renal function. Cardiology and pulmonary is following. Prognosis guarded at this time. Time with Patient: Greater than 30
[2020-11-14 06:11] LABS: Glucose,Whole Blood 240 mg/dL (75-99)
[2020-11-14] MEDS: INSULIN ASPART (NovoLOG) 100 UNIT/ML VIAL SQ SCH ×4 (06:20→21:25)
--- NOTE | 2020-11-14 07:24 | XR ---
EXAMINATION TYPE: XR chest 1V portable DATE OF EXAM: 11/14/2020 COMPARISON: 11/13/2020 HISTORY: Shortness of breath TECHNIQUE: Single frontal view of the chest is obtained. FINDINGS: Postoperative change and cardiac device seen. Bilateral areas of patchy infiltrate. Underl belinda COPD noted. No pneumothorax. No sizable pleural effusion. IMPRESSION: 1. Bilateral patchy areas of infiltrate superimposed on a background of COPD stable.
[2020-11-14] MEDS: FUROSEMIDE 20 MG TAB PO SCH (09:04)
[2020-11-14] MEDS: dexAMETHasone 2 MG TAB PO SCH (09:04)
[2020-11-14] MEDS: ASCORBIC ACID 500 MG TAB PO SCH (09:04)
[2020-11-14] MEDS: MULTIVITAMINS, THERA 1 EACH TAB PO SCH (09:04)
[2020-11-14] MEDS: METOPROLOL TARTRATE 50 MG TAB PO SCH ×2 (09:04→21:25)
[2020-11-14] MEDS: ZINC SULFATE 220 MG CAP PO SCH (09:04)
[2020-11-14] MEDS: APIXABAN 2.5 MG TABLET PO SCH ×2 (09:04→21:25)
[2020-11-14 11:54] LABS: Glucose,Whole Blood 320 mg/dL (75-99)
[2020-11-14 11:54] LABS: Glucose,Whole Blood 347 mg/dL (75-99)
[2020-11-14 12:10] LABS: C Reactive Protein 34.6 mg/L (<10.0); Calcium 8.5 mg/dL (8.4-10.2); Potassium 3.9 mmol/L (3.5-5.1)
[2020-11-14] MEDS: REMDESIVIR 100 MG in SODIUM CHLORIDE 0.9% 250 ML IVPB SCH (12:17)
--- NOTE | 2020-11-14 13:59 | P.PN ---
Subjective Progress Note Date: 11/14/20 Principal diagnosis: Acute hypoxic respiratory failure secondary to CoVID 19 pneumonitis 84-year-old male patient of Dr. Coreas has medical history of atrial fibrillation, diabetes mellitus type 2, coronary artery disease status post coronary artery bypass grafting 3 years ago, hx of myocardial infarction, nonsmoker, and a permanent pacemaker implantation, who was recently h ospitalized on 10/28/2020 through 10/31/2020 for acute right lower lobe pneumonia, community-acquired pneumonia, treated with azithromycin and Rocephin. Patient was discharged home on Ceftin. After going home he developed diarrhea, and in last 5-7 days his breathing was also becoming more labored, denied any fever or chills, he is normally not oxygen dependent, he came into the emergency department ending of increased shortness of breath, weakness. Chest pain, chest discomfort, no palpitations, no fever chills. X-ray showed cardiomegaly with interstitial opacity, patchy bibasilar opacities and trace pleural effusions. His COVID 19 PCR was found to be positive, he also had increased at 6000, troponin leak to 0.08. Influenza and RSV were negative. White blood cell count 8.9, hemoglobin 9.2, down to 0.8, INR is 1.2, d-dimer is 0.45, creatinine 1.84. Patient initially was started on oral Decadron for COVID 19 related pneumonitis, however his oxygenation continued to deteriorate and increased from 4 liters of nasal cannula to 15 L in 24 hours. His O2 sat is 90-93%, he is feeling more short of breath, his been afebrile, blood pressure has been stable, on oral Decadron, he continues to get IV Lasix 20 mg every 8 hours, his fluid balance is difficult to estimate, the patient is refusing an indwelling catheter, and he is incontinent into brief. Is down by 0.5 kg in the last 24 hours, no evidence of significant lower extremity edema, no truncal edema. On 11/13/2020 patient seen in follow-up unit, he is currently on 15 L of oxygen his pulse ox is 98%, he is mildly short of breath with exertion, denies any cough, denies any phlegm production, no chest discomfort, no palpitations. Apparently last night patient was more short of breath after an episode of to incontinence, and he became upset about it, and more short of breath and required BiPAP support. He is off BiPAP support right now, his FiO2 down to 12 L, and pulse ox remained at 96, no worsening dyspnea, and FiO2 will be turned out to 10 L. Afebrile, hemodynamically he stable, this is day 2 of his Remdesi vir treatment, on oral Lasix, on Decadron 6 mg daily. On home dose of Eliquis 2.5 mg twice daily, today's d-dimer is 0.84, pro calcitonin level was at 0.10, and inflammatory markers are improving. The patient is seen today 11/14/2020 in follow-up on the selective care unit. He is currently sitting up in a chair at the bedside. Awake and alert in no acute distress he is still requiring 9 L high flow nasal cannula to maintain O2 saturations in the low 90s. Bilateral patchy areas of infiltrate superimposed on a bicarb of COPD, stable compared to previous. He's been afebrile. Blood culture reveals no growth. Sodium 137. Potassium 3.9. Creatinine 1.69. Glucose 307. LDH 12:15. C-reactive protein 34.6. This is day #3 of Remdesivir. He remains on vitamin supplements, dexamethasone, anticoagulated with Eliquis. Objective - Vital Signs Vital signs: Vital Signs Temp 97.4 F L 11/14/20 08:59 Pulse 59 L 11/14/20 12:00 Resp 16 11/14/20 12:00 BP 119/60 11/14/20 12:00 Pulse Ox 93 L 11/14/20 12:00 Intake & Output 11/13/20 11/14/20 11/14/20 18:59 06:59 18:59 Intake Total 1320 180 Output Total 300 200 Balance 1020 -20 Weight 82.5 kg Intake: Oral 1320 180 Output: Urine 300 200 Other: Voiding Method Urinal Urinal # Voids 1 2 1 # Bowel Movements 1 - Exam GENERAL EXAM: Alert, very pleasant, 84-year-old male patient, on 9 L of oxygen and the pulse ox of 93%, comfortable in no apparent distress. HEAD: Normocephalic/atraumatic. EYES: Normal reaction of pupils, equal size. Conjunctiva pink, sclera white. NOSE: Clear with pink turbinates. THROAT: No erythema or exudates. NECK: No masses, no JVD, no thyroid enlargement, no adenopathy. CHEST: No chest wall deformity. Symmetrical expansion. LUNGS: Equal air entry with bibasilar crackles. CVS: Regular rate and rhythm, normal S1 and S2, no gallops, no murmurs, no rubs ABDOMEN: Soft, nontender. No hepatosplenomegaly, normal bowel sounds, no guarding or rigidity. EXTREMITIES: No clubbing, no edema, no cyanosis, 2+ pulses and upper and lower extremities. MUSCULOSKELETAL: Muscle strength and tone normal. SPINE: No scoliosis or deformity SKIN: No rashes CENTRAL NERVOUS SYSTEM: Alert and oriented -3. No focal deficits, tone is normal in all 4 extremities. PSYCHIATRIC: Alert and oriented -3. Appropriate affect. Intact judgment and insight. - Labs CBC & Chem 7: 11/13/20 07:43 11/14/20 10:42 Labs: Abnormal Lab Results - Last 24 Hours (Table) 11/13/20 11/13/20 11/14/20 Range/Units 17:02 20:42 06:09 BUN (9-20) mg/dL Creatinine (0.66-1.25) mg/dL Glucose (74-99) mg/dL POC Glucose (mg/dL) 363 H 401 H 240 H (75-99) mg/dL Lactate Dehydrogenase (313-618) U/L C-Reactive Protein (<10.0) mg/L 11/14/20 11/14/20 11/14/20 Range/Units 10:42 11:49 11:51 BUN 68 H (9-20) mg/dL Creatinine 1.69 H (0.66-1.25) mg/dL Glucose 307 H (74-99) mg/dL POC Glucose (mg/dL) 320 H 347 H (75-99) mg/dL Lactate Dehydrogenase 1215 H (313-618) U/L C-Reactive Protein 34.6 H (<10.0) mg/L Microbiology - Last 24 Hours (Table) 11/10/20 12:52 Blood Culture - Preliminary Blood No Growth after 72 hours Assessment and Plan Assessment: 1. Acute hypoxic respiratory failure, significantly progressed the last 24 hours, and patient's oxygen demand went from 4 L nasal cannula to 15 L nasal cannula. This is related to acute COVID 19 pneumonitis, and possibility of acute exacerbation of CHF Diastolic dysfunction 2. Recent admission for community-acquired pneumonia, from 10/28/2020 through 10/31/2020, patient was treated with Rocephin and azithromycin, discharged home on oral Ceftin 3. Chronic atrial fibrillation, on Eliquis, permanent pacemaker implantation 4. Coronary artery disease with previous bypass grafting 3 years ago 5. Chronic kidney disease stage III 6. Diabetes mellitus type 2 7. Hypertension 8. Nonsmoker 9. Diarrhea, improved Plan: The patient was seen and evaluated by Dr. Cerrato Chest x-ray and labs reviewed Oxygen requirements improving Continue to titrate down the FiO2 as tolerated Remdesivir, dexamethasone, Eliquis, vitamin supplement Increase his activity as tolerated We'll continue to follow I, the cosigning physician, performed a history & physical examination of the patient. Lungs sounds are clear. Maintaining good O2 saturations in the 90s on room air. I discussed the assessment and plan of care with my nurse practitioner, Nata Blas. I attest to the above note as dictated by her.
--- NOTE | 2020-11-14 14:04 | P.PN ---
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 Patient follows in the office with Dr. Gallardo. We have been asked to see the patient in consultation for elevated troponins. Patient presented to the emergency room with a chief complaint of shortness of breath. He was found to be positive for Covid 19. Patient is currently on 5 L nasal cannula with oxygen saturations greater than 92%. Blood pressure 104/56. Heart rate in the 50s and 60s. He is afebrile. 11/12/2020 Patient remains on 15 L high flow nasal cannula with oxygen saturations greater than 90%. Blood pressure 105/57. Heart rate in the 60s. Patient remains on IV Lasix. Creatinine increased to 2.41 today from 2.06. Echocardiogram completed revealed ejection fraction 55-60%, mild mitral regurgitation and mild tricuspid regurgitation. 11/13/2020 Patient remains on 15 L nasal cannula with oxygen saturations greater than 92%. Blood pressure 103/54. Heart rate in the 60s. Lasix was transitioned to 20 mg PO daily. Creatinine today is 2.0. Chest x-ray this morning reveals scattered infiltrates compatible with atypical pneumonia. 11/14/2020 Patient's oxygen has been weaned down to 9 L. He is maintaining oxygen saturations greater than 92%. Blood pressure 119/60. Heart rate in the 60s. He is afebrile. Creatinine 1.69. He remains on oral Lasix. PHYSICAL EXAM: Thorough physical exam not completed secondary to limited evaluation/examination and due to Covid19 ASSESSMENT: Acute Covid 19 pneumonia Acute hypoxic respiratory failure, secondary to above Abnormal troponin, secondary to covid 19, no signs of acute coronary syndrome History of paroxysmal atrial fibrillation with previous cardioversion, on anticoagulation with Eliquis Acute kidney injury Chronic kidney disease Coronary artery disease with previous CABG 2, 2000 Acute exacerbation of chronic diastolic congestive heart failure, EF 60-65% Hypertension Hyperlipidemia Diabetes mellitus PLAN: Continue current cardiac medications Accurate I&O Daily weights Monitor kidney function. Repeat BMP in a.m. Pulmonary following Further recommendations pending patient's course Nurse practitioner note has been reviewed by physician. Signing provider agrees with the documented findings, assessment, and plan of care. Objective - Vital Signs Vital signs: Vital Signs Temp 97.4 F L 11/14/20 08:59 Pulse 59 L 11/14/20 12:00 Resp 16 11/14/20 12:00 BP 119/60 11/14/20 12:00 Pulse Ox 93 L 11/14/20 12:00 Intake & Output 11/13/20 11/14/20 11/14/20 18:59 06:59 18:59 Intake Total 1320 180 Output Total 300 200 Balance 1020 -20 Weight 82.5 kg Intake: Oral 1320 180 Output: Urine 300 200 Other: Voiding Method Urinal Urinal # Voids 1 2 1 # Bowel Movements 1 - Labs CBC & Chem 7: 11/13/20 07:43 11/14/20 10:42 Labs: Abnormal Lab Results - Last 24 Hours (Table) 11/13/20 11/13/20 11/14/20 Range/Units 17:02 20:42 06:09 BUN (9-20) mg/dL Creatinine (0.66-1.25) mg/dL Glucose (74-99) mg/dL POC Glucose (mg/dL) 363 H 401 H 240 H (75-99) mg/dL Lactate Dehydrogenase (313-618) U/L C-Reactive Protein (<10.0) mg/L 11/14/20 11/14/20 11/14/20 Range/Units 10:42 11:49 11:51 BUN 68 H (9-20) mg/dL Creatinine 1.69 H (0.66-1.25) mg/dL Glucose 307 H (74-99) mg/dL POC Glucose (mg/dL) 320 H 347 H (75-99) mg/dL Lactate Dehydrogenase 1215 H (313-618) U/L C-Reactive Protein 34.6 H (<10.0) mg/L Microbiology - Last 24 Hours (Table) 11/10/20 12:52 Blood Culture - Preliminary Blood No Growth after 72 hours
[2020-11-14 16:25] LABS: Glucose,Whole Blood 383 mg/dL (75-99)
[2020-11-14] MEDS: SODIUM CHLORIDE 0.9% 1,000 ML IV SCH (17:23)
[2020-11-14 20:54] LABS: Glucose,Whole Blood 373 mg/dL (75-99)
[2020-11-14] MEDS: ATORVASTATIN 10 MG TAB PO SCH (21:25)
[2020-11-15] MEDS: SODIUM CHLORIDE 0.9% 1,000 ML IV SCH ×2 (02:36→20:26)
[2020-11-15 06:12] LABS: Glucose,Whole Blood 265 mg/dL (75-99)
[2020-11-15] MEDS: INSULIN ASPART (NovoLOG) 100 UNIT/ML VIAL SQ SCH ×4 (06:25→20:27)
[2020-11-15 07:33] LABS: HCT 37.9 % (39.0-53.0); MCH 31.3 pg (25.0-35.0); MCHC 34.4 g/dL (31.0-37.0); MCV 91.2 fL (80.0-100.0); Mean Platelet Volume 7.5; Platelet Count 306 k/uL (150-450); RBC 4.15 m/uL (4.30-5.90); RDW 12.2 % (11.5-15.5); WBC 11.5 k/uL (3.8-10.6)
[2020-11-15 07:46] LABS: Calcium 8.6 mg/dL (8.4-10.2); Potassium 3.8 mmol/L (3.5-5.1)
--- NOTE | 2020-11-15 10:21 | P.PN ---
Subjective Progress Note Date: 11/15/20 84-year-old male patient of Dr. Coreas has medical history of atrial fibrillation, diabetes mellitus type 2, coronary artery disease status post coronary artery bypass grafting 3 years ago, hx of myocardial infarction, nonsmoker, and a permanent pacemaker implantation, who was recently hospitalized on 10/28/2020 through 10/31/2020 for acute right lower lobe pneumonia, community-acquired pneumonia, treated with azithromycin and Rocephin. Patient was discharged home on Ceftin. After going home he developed diarrhea, and in last 5-7 days his breathing was also becoming more labored, denied any fever or chills, he is normally not oxygen dependent, he came into the emergency department ending of increased shortness of breath, weakness. Chest pain, chest discomfort, no palpitations, no fever chills. X-ray showed cardiomegaly with interstitial opacity, patchy bibasilar opacities and trace pleural effusions. His COVID 19 PCR was found to be positive, he also had increased at 6000, troponin leak to 0.08. Influenza and RSV were negative. White blood cell count 8.9, hemoglobin 9.2, down to 0.8, INR is 1.2, d-dimer is 0.45, creatinine 1.84. Patient initially was started on oral Decadron for COVID 19 related pneumonitis, however his oxygenation continued to deteriorate and increased from 4 liters of nasal cannula to 15 L in 24 hours. His O2 sat is 90-93%, he is feeling more short of breath, his been afebrile, blood pressure has been stable, on oral Decadron, he continues to get IV Lasix 20 mg every 8 hours, his fluid balance is difficult to estimate, the patient is refusing an indwelling catheter, and he is incontinent into brief. Is down by 0.5 kg in the last 24 hours, no evidence of significant lower extremity edema, no truncal edema. On 11/13/2020 patient seen in follow-up unit, he is currently on 15 L of oxygen his pulse ox is 98%, he is mildly short of breath with exertion, denies any cough, denies any phlegm production, no chest discomfort, no palpitations. Maria G arently last night patient was more short of breath after an episode of to incontinence, and he became upset about it, and more short of breath and required BiPAP support. He is off BiPAP support right now, his FiO2 down to 12 L, and pulse ox remained at 96, no worsening dyspnea, and FiO2 will be turned out to 10 L. Afebrile, hemodynamically he stable, this is day 2 of his Remdesivir treatment, on oral Lasix, on Decadron 6 mg daily. On home dose of Eliquis 2.5 mg twice daily, today's d-dimer is 0.84, pro calcitonin level was at 0.10, and inflammatory markers are improving. The patient is seen today 11/14/2020 in follow-up on the selective care unit. He is currently sitting up in a chair at the bedside. Awake and alert in no acute distress he is still requiring 9 L high flow nasal cannula to maintain O2 saturations in the low 90s. Bilateral patchy areas of infiltrate superimposed on a bicarb of COPD, stable compared to previous. He's been afebrile. Blood culture reveals no growth. Sodium 137. Potassium 3.9. Creatinine 1.69. Glucose 307. LDH 1215. C-reactive protein 34.6. This is day #3 of Remdesivir. He remains on vitamin supplements, dexamethasone, anticoagulated with Eliquis. 11/15/2020, the patient is being seen for a follow-up. As mentioned earlier, the patient is on treatment for Covid 19 related pneumonia. The patient wasn't hypoxic respiratory failure and he was requiring oxygen at the higher flow. For instance, yesterday he was on 9 L and overnight the patient has been brought up to 10 L and currently is up to 12 L of oxygen by nasal cannula. Chest x-ray from yesterday was still showing bilateral pulmonary infiltrates consistent with pneumonia. There was bilateral patchy areas of infiltration in addition to underlying COPD. The patient is receiving combination of treatment. The patient is on Decadron. The patient is on day #4 of Remdesivir a matter markers are not available from today. His CRP was declining down to 34 and his LDH was 1215. His pro-calcitonin level was low. D-dimer was low. He remains on Lovenox 2.5 mg twice a day. Creatinine today is down to 1.48. Objective - Vital Signs Vital signs: Vital Signs Temp 96.6 F L 11/15/20 03:11 Pulse 60 11/15/20 03:11 Resp 20 11/15/20 03:11 BP 124/63 11/15/20 03:11 Pulse Ox 94 L 11/15/20 03:11 Intake & Output 11/14/20 11/15/20 11/15/20 18:59 06:59 18:59 Intake Total 1500 480 240 Output Total 1300 750 Balance 200 -270 240 Weight 82 kg Intake: Oral 1500 480 240 Output: Urine 1300 750 Other: Voiding Method Urinal Urinal # Voids 1 # Bowel Movements 1 1 - Exam GENERAL EXAM: Alert, very pleasant, 84-year-old male patient, on 12 L of oxygen and the pulse ox of 93%, comfortable in no apparent distress. HEAD: Normocephalic/atraumatic. EYES: Normal reaction of pupils, equal size. Conjunctiva pink, sclera white. NOSE: Clear with pink turbinates. THROAT: No erythema or exudates. NECK: No masses, no JVD, no thyroid enlargement, no adenopathy. CHEST: No chest wall deformity. Symmetrical expansion. LUNGS: Equal air entry with bibasilar crackles. CVS: Regular rate and rhythm, normal S1 and S2, no gallops, no murmurs, no rubs ABDOMEN: Soft, nontender. No hepatosplenomegaly, normal bowel sounds, no guarding or rigidity. EXTREMITIES: No clubbing, no edema, no cyanosis, 2+ pulses and upper and lower extremities. MUSCULOSKELETAL: Muscle strength and tone normal. SPINE: No scoliosis or deformity SKIN: No rashes CENTRAL NERVOUS SYSTEM: Alert and oriented -3. No focal deficits, tone is normal in all 4 extremities. PSYCHIATRIC: Alert and oriented -3. Appropriate affect. Intact judgment and insight. - Labs CBC & Chem 7: 11/15/20 07:12 11/15/20 07:12 Labs: Abnormal Lab Results - Last 24 Hours (Table) 11/14/20 11/14/20 11/14/20 Range/Units 10:42 11:49 11:51 WBC (3.8-10.6) k/uL RBC (4.30-5.90) m/uL Hct (39.0-53.0) % BUN 68 H (9-20) mg/dL Creatinine 1.69 H (0.66-1.25) mg/dL Glucose 307 H (74-99) mg/dL POC Glucose (mg/dL) 320 H 347 H (75-99) mg/dL Lactate Dehydrogenase 1215 H (313-618) U/L C-Reactive Protein 34.6 H (<10.0) mg/L 11/14/20 11/14/20 11/15/20 Range/Units 16:23 20:52 06:11 WBC (3.8-10.6) k/uL RBC (4.30-5.90) m/uL Hct (39.0-53.0) % BUN (9-20) mg/dL Creatinine (0.66-1.25) mg/dL Glucose (74-99) mg/dL POC Glucose (mg/dL) 383 H 373 H 265 H (75-99) mg/dL Lactate Dehydrogenase (313-618) U/L C-Reactive Protein (<10.0) mg/L 11/15/20 11/15/20 Range/Units 07:12 07:12 WBC 11.5 H (3.8-10.6) k/uL RBC 4.15 L (4.30-5.90) m/uL Hct 37.9 L (39.0-53.0) % BUN 58 H (9-20) mg/dL Creatinine 1.48 H (0.66-1.25) mg/dL Glucose 269 H (74-99) mg/dL POC Glucose (mg/dL) (75-99) mg/dL Lactate Dehydrogenase (313-618) U/L C-Reactive Protein (<10.0) mg/L Microbiology - Last 24 Hours (Table) 11/10/20 12:52 Blood Culture - Preliminary Blood No Growth after 96 hours Assessment and Plan Plan: 1. Acute hypoxic respiratory failure, significantly progressed the last 24 hours, and patient's oxygen demand went from 12 L nasal cannula. This is related to acute COVID 19 pneumonitis, and possibility of acute exacerbation of CHF Diastolic dysfunction noted the patient's oxygen requirements and steadily gone up from 4 L up to 9 L and currently is at 12 L. 2. Recent admission for community-acquired pneumonia, from 10/28/2020 through 10/31/2020, patient was treated with Rocephin and azithromycin, discharged home on oral Ceftin 3. Chronic atrial fibrillation, on Eliquis, permanent pacemaker implantation 4. Coronary artery disease with previous bypass grafting 3 years ago 5. Chronic kidney disease stage III in point of an acute kidney injury and current creatinine is improving and is down to 1.48 and he remains on normal saline at the rate of 50 mL an hour. 6. Diabetes mellitus type 2 7. Hypertension 8. Nonsmoker 9. Diarrhea, improved Plan: Repeat the chest x-ray from today and repeat inflammatory markers Clinically the same, probably slightly worse in terms of his oxygenation Continue to titrate down the FiO2 as tolerated Remdesivir #4, dexamethasone, Eliquis, vitamin supplement Increase his activity as tolerated, currently on 12 L of oxygen by nasal cannula. We will monitor his condition very closely. We'll continue to follow
[2020-11-15] MEDS: MULTIVITAMINS, THERA 1 EACH TAB PO SCH (10:41)
[2020-11-15] MEDS: dexAMETHasone 2 MG TAB PO SCH (10:41)
[2020-11-15] MEDS: METOPROLOL TARTRATE 50 MG TAB PO SCH ×2 (10:41→20:26)
[2020-11-15] MEDS: ASCORBIC ACID 500 MG TAB PO SCH (10:41)
[2020-11-15] MEDS: ZINC SULFATE 220 MG CAP PO SCH (10:42)
[2020-11-15] MEDS: FUROSEMIDE 20 MG TAB PO SCH (10:42)
[2020-11-15] MEDS: APIXABAN 2.5 MG TABLET PO SCH ×2 (10:42→20:26)
[2020-11-15] MEDS: REMDESIVIR 100 MG in SODIUM CHLORIDE 0.9% 250 ML IVPB SCH (10:53)
[2020-11-15 12:17] LABS: Glucose,Whole Blood 253 mg/dL (75-99)
--- NOTE | 2020-11-15 13:18 | XR ---
EXAMINATION TYPE: XR chest 1V DATE OF EXAM: 11/15/2020 COMPARISON: 11/14/2020 INDICATION: Covid TECHNIQUE: Single frontal view of the chest is obtained. FINDINGS: The heart size is normal. The pulmonary vasculature is slightly prominent. Scattered increased lung markings are present. These are nonspecific. Atypical pneumonia would be wit hin the differential. 2 leads pacemakers over the left chest. IMPRESSION: 1. Scattered bilateral infiltrates are nonspecific. Consider atypical pneumonia
--- NOTE | 2020-11-15 14:14 | P.PN ---
Subjective Progress Note Date: 11/15/20 CHIEF COMPLAINT: Elevated troponins, acute pulmonary edema HISTORY OF PRESENT ILLNESS: 11/11/2020 This is a 84-year-old male with a past medical history significant for paroxysmal atrial fibrillation with previous cardioversion, permanent pacemaker insertion secondary to third-degree heart block, coronary artery disease with previous CABG 2 in 2000, diabetes mellitus, hypertension, hyperlipidemia, and congestive heart failure. Patient follows in the office with Dr. Gallardo. We have been asked to see the patient in consultation for elevated troponins. Patient presented to the emergency room with a chief complaint of shortness of breath. He was found to be positive for Covid 19. Patient is currently on 5 L nasal cannula with oxygen saturations greater than 92%. Blood pressure 104/56. Heart rate in the 50s and 60s. He is afebrile. 11/12/2020 Patient remains on 15 L high flow nasal cannula with oxygen saturations greater than 90%. Blood pressure 105/57. Heart rate in the 60s. Patient remains on IV Lasix. Creatinine increased to 2.41 today from 2.06. Echocardiogram completed revealed ejection fraction 55-60%, mild mitral regurgitation and mild tricuspid regurgitation. 11/13/2020 Patient remains on 15 L nasal cannula with oxygen saturations greater than 92%. Blood pressure 103/54. Heart rate in the 60s. Lasix was transitioned to 20 mg PO daily. Creatinine today is 2.0. Chest x-ray this morning reveals scattered infiltrates compatible with atypical pneumonia. 11/14/2020 Patient's oxygen has been weaned down to 9 L. He is maintaining oxygen saturations greater than 92%. Blood pressure 119/60. Heart rate in the 60s. He is afebrile. Creatinine 1.69. He remains on oral Lasix. 11/15: Patient was back up to 12 L nasal cannula during the night with pulse ox of 92-94%. He has been afebrile, heart rate in the 60s, blood pressure 120/60. BUN 58 and creatinine 1.48. Lopressor. Patient was started on Remdesivir by pulmonary medicine. PHYSICAL EXAM: Thorough physical exam not completed secondary to limited evaluation/examination and due to Covid19 ASSESSMENT: Acute Covid 19 pneumonia Acute hypoxic respiratory failure, secondary to above Abnormal troponin, secondary to covid 19, no signs of acute coronary syndrome History of paroxysmal atrial fibrillation with previous cardioversion, on anticoagulation with Eliquis Acute kidney injury Chronic kidney disease Coronary artery disease with previous CABG 2000 Acute exacerbation of chronic diastolic congestive heart failure, EF 60-65% Hypertension Hyperlipidemia Diabetes mellitus PLAN: Continue current cardiac medications Accurate I&O Daily weights Monitor kidney function. Pulmonary following Further recommendations pending patient's course Nurse practitioner note has been reviewed by physician. Signing provider agrees with the documented findings, assessment, and plan of care. Objective - Vital Signs Vital signs: Vital Signs Temp 97.3 F L 11/15/20 08:15 Pulse 63 11/15/20 08:15 Resp 19 11/15/20 08:15 BP 120/60 11/15/20 08:15 Pulse Ox 92 L 11/15/20 08:15 Intake & Output 11/14/20 11/15/20 11/15/20 18:59 06:59 18:59 Intake Total 1500 480 240 Output Total 1300 750 300 Balance 200 -270 -60 Weight 82 kg Intake: Oral 1500 480 240 Output: Urine 1300 750 300 Other: Voiding Method Urinal Urinal # Voids 1 1 # Bowel Movements 1 1 - Labs CBC & Chem 7: 11/15/20 07:12 11/15/20 07:12 Labs: Abnormal Lab Results - Last 24 Hours (Table) 11/14/20 11/14/20 11/14/20 Range/Units 10:42 16:23 20:52 WBC (3.8-10.6) k/uL RBC (4.30-5.90) m/uL Hct (39.0-53.0) % BUN 68 H (9-20) mg/dL Creatinine 1.69 H (0.66-1.25) mg/dL Glucose 307 H (74-99) mg/dL POC Glucose (mg/dL) 383 H 373 H (75-99) mg/dL Lactate Dehydrogenase 1215 H (313-618) U/L C-Reactive Protein 34.6 H (<10.0) mg/L 11/15/20 11/15/20 11/15/20 Range/Units 06:11 07:12 07:12 WBC 11.5 H (3.8-10.6) k/uL RBC 4.15 L (4.30-5.90) m/uL Hct 37.9 L (39.0-53.0) % BUN 58 H (9-20) mg/dL Creatinine 1.48 H (0.66-1.25) mg/dL Glucose 269 H (74-99) mg/dL POC Glucose (mg/dL) 265 H (75-99) mg/dL Lactate Dehydrogenase (313-618) U/L C-Reactive Protein (<10.0) mg/L Microbiology - Last 24 Hours (Table) 11/10/20 12:52 Blood Culture - Preliminary Blood No Growth after 96 hours
--- NOTE | 2020-11-15 16:30 | P.PN ---
Subjective Progress Note Date: 11/14/20 Principal diagnosis: Acute COVID-19 pneumonia Patient is a 84-year-old male with a known history paroxysmal atrial fibrillation, diabetes type 2, coronary artery disease with history of CABG and pacemaker placement who was recently admitted to the hospital for pneumonia and was discharged 10/31/2020 presented to ER with complaints of shortness of breath and diarrhea for the past 2 weeks. Patient states that he did complete his antibiotic course. Denied any complaints of abdominal pain. Patient has been having worsening shortness of breath and generalized weakness. Denied any fever or chills. No cough. No chest pain or palpitations. Patient felt very weak and tired. Denied any fall. No nausea or vomiting. Chest x-ray showed cardiomegaly with interstitial opacity, patchy bibasilar opacities and trace pleural effusions. Correlate for CHF with interstitial pulmonary edema. 11/14/2020 Patient is currently sitting the chair comfortably. No complaints of chest pain or worsening shortness of breath. On high flow oxygen at 9 L today. Patient has been afebrile. Currently being continued Lasix 40 mg daily, dexamethasone and remdesivir course. Pulmonary and cardiology is on board. Chest x-ray completed this morning showed scattered bilateral patchy areas of infiltrate superimposed on a background of COPD which are stable. Cardiology is following for elevated troponin and acute pulmonary edema and recommending to continue to monitor strict JEAN PIERRE's, daily weights, renal function and electrolytes Objective - Vital Signs Vital signs: Vital Signs Temp 97.4 F L 11/14/20 08:59 Pulse 59 L 11/14/20 12:00 Resp 16 11/14/20 12:00 BP 119/60 11/14/20 12:00 Pulse Ox 93 L 11/14/20 12:00 Intake & Output 11/13/20 11/14/20 11/14/20 18:59 06:59 18:59 Intake Total 1320 180 Output Total 300 200 Balance 1020 -20 Weight 82.5 kg Intake: Oral 1320 180 Output: Urine 300 200 Other: Voiding Method Urinal Urinal # Voids 1 2 1 # Bowel Movements 1 - Exam Patient is lying in the bed comfortably, no acute distress, awake alert and oriented.Generalized weakness and tired looking.. HEENT: Normocephalic. Neck is supple. Pupils reactive. Nostrils clear. Oral cavity is moist. Ears reveal no drainage. Neck reveals no JVD, carotid bruits, or thyromegaly. CHEST EXAMINATION: Trachea is central. Symmetrical expansion. Scattered coarse breath sounds throughout. No wheezing.. CARDIAC: Normal S1, S2 with no gallops. No murmurs ABDOMEN: Soft. Bowel sounds normal. No organomegaly. No abdominal bruits. Extremities: reveal no edema. No clubbing or cyanosis Neurologically awake, alert, oriented x3 with well-coordinated movements. No focal deficits noted Skin: No rash or skin lesions. Psychiatric: Coperative. Nonsuicidal Musculoskeletal: No joint swelling or deformity. Normal range of motion. - Labs CBC & Chem 7: 11/13/20 07:43 11/14/20 10:42 Labs: Abnormal Lab Results - Last 24 Hours (Table) 11/13/20 11/13/20 11/14/20 Range/Units 17:02 20:42 06:09 BUN (9-20) mg/dL Creatinine (0.66-1.25) mg/dL Glucose (74-99) mg/dL POC Glucose (mg/dL) 363 H 401 H 240 H (75-99) mg/dL Lactate Dehydrogenase (313-618) U/L C-Reactive Protein (<10.0) mg/L 11/14/20 11/14/20 11/14/20 Range/Units 10:42 11:49 11:51 BUN 68 H (9-20) mg/dL Creatinine 1.69 H (0.66-1.25) mg/dL Glucose 307 H (74-99) mg/dL POC Glucose (mg/dL) 320 H 347 H (75-99) mg/dL Lactate Dehydrogenase 1215 H (313-618) U/L C-Reactive Protein 34.6 H (<10.0) mg/L Microbiology - Last 24 Hours (Table) 11/10/20 12:52 Blood Culture - Preliminary Blood No Growth after 72 hours Assessment and Plan Assessment: Acute COVID-19 pneumonia Acute hypoxic respiratory failure requiring oxygen 8L via nasal cannula currently. Acute diarrhea likely due to viral infection. RuleD out C. difficile. Acute CHF with diastolic dysfunction Elevated troponin level due to demand mismatch Recent history of pneumonia and was discharged on 10/31/2020 Coronary artery disease history of bypass graft -Paroxysmal atrial fibrillation, chronically on anticoagulation -Diabetes mellitus type 2 on oral hypoglycemic, uncontrolled with hyperglycemia -acute kidney injury. pre renal and from cardiorenal syndrome. -Suspect underlying chronic kidney disease stage III from diabetic nephropathy and nephrosclerosis Plan: Patient will be continued oxygen supplementation and titrate down FiO2. on dexamethasone 6 mg daily. Patient is already on anticoagulation with Eliquis. Continue with vitamin supplementation and contact, droplet precautions.Patient was started remdesivir.Continue with oral Lasix. Monitor renal function. Cardiology and pulmonary is following. Prognosis guarded at this time.
--- NOTE | 2020-11-15 16:33 | P.PN ---
Subjective Progress Note Date: 11/15/20 Principal diagnosis: Acute COVID-19 pneumonia Patient is a 84-year-old male with a known history paroxysmal atrial fibrillation, diabetes type 2, coronary artery disease with history of CABG and pacemaker placement who was recently admitted to the hospital for pneumonia and was discharged 10/31/2020 presented to ER with complaints of shortness of breath and diarrhea for the past 2 weeks. Patient states that he did complete his antibiotic course. Denied any complaints of abdominal pain. Patient has been having worsening shortness of breath and generalized weakness. Denied any fever or chills. No cough. No chest pain or palpitations. Patient felt very weak and tired. Denied any fall. No nausea or vomiting. Chest x-ray showed cardiomegaly with interstitial opacity, patchy bibasilar opacities and trace pleural effusions. Correlate for CHF with interstitial pulmonary edema. 11/14/2020 Patient is currently sitting the chair comfortably. No complaints of chest pain or worsening shortness of breath. On high flow oxygen at 9 L today. Patient has been afebrile. Currently being continued Lasix 40 mg daily, dexamethasone and remdesivir course. Pulmonary and cardiology is on board. Chest x-ray completed this morning showed scattered bilateral patchy areas of infiltrate superimposed on a background of COPD which are stable. Cardiology is following for elevated troponin and acute pulmonary edema and recommending to continue to monitor strict JEAN PIERRE's, daily weights, renal function and electrolytes 11/15/2020 patient is being seen for a follow-up on treatment for Covid 19 related pneumonia. The patient is an hypoxic respiratory failure and he was requiring oxygen at the higher flow. For instance, yesterday he was on 9 L and overnight the patient has been brought up to 10 L and currently is up to 12 L of oxygen by nasal cannula. Chest x-ray from yesterday was still showing bilateral pulmonary infiltrates consistent with pneumonia. There was bilateral patchy areas of infiltration in addition to underlying COPD. The patient is receiving combination of treatment, Decadron, day #4 of Remdesivir. His CRP was declining down to 34 and his LDH was 1215. His pro- calcitonin level was low. D-dimer was low. He remains on Lovenox 2.5 mg twice a day. Creatinine today is down to 1.48. Cardiology is following for elevated troponin and recommending to continue with current cardiac medications and monitor strict JEAN PIERRE's and daily weights along with renal function Objective - Vital Signs Vital signs: Vital Signs Temp 97.3 F L 11/15/20 08:15 Pulse 60 11/15/20 12:00 Resp 18 11/15/20 12:00 BP 129/59 11/15/20 12:00 Pulse Ox 97 11/15/20 12:00 Intake & Output 11/14/20 11/15/20 11/15/20 18:59 06:59 18:59 Intake Total 1500 480 780 Output Total 1300 750 700 Balance 200 -270 80 Weight 82 kg Intake: Oral 1500 480 780 Output: Urine 1300 750 700 Other: Voiding Method Urinal Urinal # Voids 1 1 # Bowel Movements 1 1 - Exam Patient is lying in the bed comfortably, no acute distress, awake alert and oriented.Generalized weakness and tired looking.. HEENT: Normocephalic. Neck is supple. Pupils reactive. Nostrils clear. Oral cavity is moist. Ears reveal no drainage. Neck reveals no JVD, carotid bruits, or thyromegaly. CHEST EXAMINATION: Trachea is central. Symmetrical expansion. Scattered coarse breath sounds throughout. No wheezing.. CARDIAC: Normal S1, S2 with no gallops. No murmurs ABDOMEN: Soft. Bowel sounds normal. No organomegaly. No abdominal bruits. Extremities: reveal no edema. No clubbing or cyanosis Neurologically awake, alert, oriented x3 with well-coordinated movements. No focal deficits noted Skin: No rash or skin lesions. Psychiatric: Coperative. Nonsuicidal Musculoskeletal: No joint swelling or deformity. Normal range of motion. - Labs CBC & Chem 7: 11/15/20 07:12 11/15/20 07:12 Labs: Abnormal Lab Results - Last 24 Hours (Table) 11/14/20 11/15/20 11/15/20 Range/Units 20:52 06:11 07:12 WBC (3.8-10.6) k/uL RBC (4.30-5.90) m/uL Hct (39.0-53.0) % BUN 58 H (9-20) mg/dL Creatinine 1.48 H (0.66-1.25) mg/dL Glucose 269 H (74-99) mg/dL POC Glucose (mg/dL) 373 H 265 H (75-99) mg/dL 11/15/20 11/15/20 Range/Units 07:12 12:15 WBC 11.5 H (3.8-10.6) k/uL RBC 4.15 L (4.30-5.90) m/uL Hct 37.9 L (39.0-53.0) % BUN (9-20) mg/dL Creatinine (0.66-1.25) mg/dL Glucose (74-99) mg/dL POC Glucose (mg/dL) 253 H (75-99) mg/dL Microbiology - Last 24 Hours (Table) 11/10/20 12:52 Blood Culture - Preliminary Blood No Growth after 120 hours Assessment and Plan Assessment: Acute COVID-19 pneumonia Acute hypoxic respiratory failure requiring oxygen 8L via nasal cannula currently. Acute diarrhea likely due to viral infection. RuleD out C. difficile. Acute CHF with diastolic dysfunction Elevated troponin level due to demand mismatch Recent history of pneumonia and was discharged on 10/31/2020 Coronary artery disease history of bypass graft -Paroxysmal atrial fibrillation, chronically on anticoagulation -Diabetes mellitus type 2 on oral hypoglycemic, uncontrolled with hyperglycemia -acute kidney injury. pre renal and from cardiorenal syndrome. -Suspect underlying chronic kidney disease stage III from diabetic nephropathy and nephrosclerosis Plan: Patient will be continued oxygen supplementation and titrate down FiO2. on dexamethasone 6 mg daily. Patient is already on anticoagulation with Eliquis. Continue with vitamin supplementation and contact, droplet precautions.Patient was started remdesivir.Continue with oral Lasix. Monitor renal function. Cardiology and pulmonary is following. Prognosis guarded at this time.
[2020-11-15 17:23] LABS: Glucose,Whole Blood 378 mg/dL (75-99)
[2020-11-15 20:07] LABS: Glucose,Whole Blood 365 mg/dL (75-99)
[2020-11-15] MEDS: ATORVASTATIN 10 MG TAB PO SCH (20:26)
[2020-11-16 06:03] LABS: Glucose,Whole Blood 129 mg/dL (75-99)
[2020-11-16] MEDS: INSULIN ASPART (NovoLOG) 100 UNIT/ML VIAL SQ SCH ×4 (06:15→21:36)
[2020-11-16 07:25] LABS: C Reactive Protein 21.6 mg/L (<10.0)
[2020-11-16] MEDS: METOPROLOL TARTRATE 50 MG TAB PO SCH ×2 (09:28→21:36)
[2020-11-16] MEDS: ZINC SULFATE 220 MG CAP PO SCH (09:28)
[2020-11-16] MEDS: FUROSEMIDE 20 MG TAB PO SCH (09:28)
[2020-11-16] MEDS: ASCORBIC ACID 500 MG TAB PO SCH (09:28)
[2020-11-16] MEDS: APIXABAN 2.5 MG TABLET PO SCH ×2 (09:28→21:36)
[2020-11-16] MEDS: dexAMETHasone 2 MG TAB PO SCH (09:28)
[2020-11-16] MEDS: MULTIVITAMINS, THERA 1 EACH TAB PO SCH (09:31)
[2020-11-16] MEDS: REMDESIVIR 100 MG in SODIUM CHLORIDE 0.9% 250 ML IVPB SCH (09:32)
--- NOTE | 2020-11-16 10:03 | P.PN ---
Subjective Progress Note Date: 11/16/20 84-year-old male patient of Dr. Coreas has medical history of atrial fibrillation, diabetes mellitus type 2, coronary artery disease status post coronary artery bypass grafting 3 years ago, hx of myocardial infarction, nonsmoker, and a permanent pacemaker implantation, who was recently hospitalized on 10/28/2020 through 10/31/2020 for acute right lower lobe pneumonia, community-acquired pneumonia, treated with azithromycin and Rocephin. Patient was discharged home on Ceftin. After going home he developed diarrhea, and in last 5-7 days his breathing was also becoming more labored, denied any fe jacklyn or chills, he is normally not oxygen dependent, he came into the emergency department ending of increased shortness of breath, weakness. Chest pain, chest discomfort, no palpitations, no fever chills. X-ray showed cardiomegaly with interstitial opacity, patchy bibasilar opacities and trace pleural effusions. His COVID 19 PCR was found to be positive, he also had increased at 6000, troponin leak to 0.08. Influenza and RSV were negative. White blood cell count 8.9, hemoglobin 9.2, down to 0.8, INR is 1.2, d-dimer is 0.45, creatinine 1.84. Patient initially was started on oral Decadron for COVID 19 related pneumonitis, however his oxygenation continued to deteriorate and increased from 4 liters of nasal cannula to 15 L in 24 hours. His O2 sat is 90-93%, he is feeling more short of breath, his been afebrile, blood pressure has been stable, on oral Decadron, he continues to get IV Lasix 20 mg every 8 hours, his fluid balance is difficult to estimate, the patient is refusing an indwelling catheter, and he is incontinent into brief. Is down by 0.5 kg in the last 24 hours, no evidence of significant lower extremity edema, no truncal edema. On 11/13/2020 patient seen in follow-up unit, he is currently on 15 L of oxygen his pulse ox is 98%, he is mildly short of breath with exertion, denies any cough, denies any phlegm production, no chest discomfort, no palpitations. Ap parently last night patient was more short of breath after an episode of to incontinence, and he became upset about it, and more short of breath and required BiPAP support. He is off BiPAP support right now, his FiO2 down to 12 L, and pulse ox remained at 96, no worsening dyspnea, and FiO2 will be turned out to 10 L. Afebrile, hemodynamically he stable, this is day 2 of his Remdesivir treatment, on oral Lasix, on Decadron 6 mg daily. On home dose of Eliquis 2.5 mg twice daily, today's d-dimer is 0.84, pro calcitonin level was at 0.10, and inflammatory markers are improving. The patient is seen today 11/14/2020 in follow-up on the selective care unit. He is currently sitting up in a chair at the bedside. Awake and alert in no acute distress he is still requiring 9 L high flow nasal cannula to maintain O2 saturations in the low 90s. Bilateral patchy areas of infiltrate superimposed on a bicarb of COPD, stable compared to previous. He's been afebrile. Blood culture reveals no growth. Sodium 137. Potassium 3.9. Creatinine 1.69. Glucose 307. LDH 1215. C-reactive protein 34.6. This is day #3 of Remdesivir. He remains on vitamin supplements, dexamethasone, anticoagulated with Eliquis. 11/15/2020, the patient is being seen for a follow-up. As mentioned earlier, the patient is on treatment for Covid 19 related pneumonia. The patient wasn't hypoxic respiratory failure and he was requiring oxygen at the higher flow. For instance, yesterday he was on 9 L and overnight the patient has been brought up to 10 L and currently is up to 12 L of oxygen by nasal cannula. Chest x-ray from yesterday was still showing bilateral pulmonary infiltrates consistent with pneumonia. There was bilateral patchy areas of infiltration in addition to underlying COPD. The patient is receiving combination of treatment. The patient is on Decadron. The patient is on day #4 of Remdesivir a matter markers are not available from today. His CRP was declining down to 34 and his LDH was 1215. His pro-calcitonin level was low. D-dimer was low. He remains on Lovenox 2.5 mg twice a day. Creatinine today is down to 1.48. On today's evaluation of 11/16/2020, the patient is stable on 10 L of oxygen by nasal cannula. A follow-up chest x-ray was done yesterday as the patient's ox idation was gradually getting worse. The chest x-ray showed scattered bilateral pulmonary infiltrates, nonspecific, consistent with overnight he relates pneumonia. Pacemaker was in place. The patient currently is still on Decadron 6 mg by mouth daily. The patient is also receiving a course of Remdesivir he remains on IV fluid normal saline at the rate of 50. An cc an hour. The patient has an LDH which is at 1261, C-reactive protein is at 21. Progesterone level is at 0.1. The patient remains on Eliquis 2.5 mg by mouth daily Objective - Vital Signs Vital signs: Vital Signs Temp 97.6 F 11/16/20 03:46 Pulse 60 11/16/20 03:46 Resp 18 11/16/20 03:46 BP 126/65 11/16/20 03:46 Pulse Ox 92 L 11/16/20 03:46 Intake & Output 11/15/20 11/16/20 11/16/20 18:59 06:59 18:59 Intake Total 1340 540 240 Output Total 850 175 200 Balance 490 365 40 Weight 82 kg Intake: Oral 1340 540 240 Output: Urine 850 175 200 Other: Voiding Method Urinal # Voids 1 2 1 # Bowel Movements 1 - Exam GENERAL EXAM: Alert, very pleasant, 84-year-old male patient, on 10 L of oxygen and the pulse ox of 96%, comfortable in no apparent distress. HEAD: Normocephalic/atraumatic. EYES: Normal reaction of pupils, equal size. Conjunctiva pink, sclera white. NOSE: Clear with pink turbinates. THROAT: No erythema or exudates. NECK: No masses, no JVD, no thyroid enlargement, no adenopathy. CHEST: No chest wall deformity. Symmetrical expansion. LUNGS: Equal air entry with bibasilar crackles. CVS: Regular rate and rhythm, normal S1 and S2, no gallops, no murmurs, no rubs ABDOMEN: Soft, nontender. No hepatosplenomegaly, normal bowel sounds, no guarding or rigidity. EXTREMITIES: No clubbing, no edema, no cyanosis, 2+ pulses and upper and lower extremities. MUSCULOSKELETAL: Muscle strength and tone normal. SPINE: No scoliosis or deformity SKIN: No rashes CENTRAL NERVOUS SYSTEM: Alert and oriented -3. No focal deficits, tone is normal in all 4 extremities. PSYCHIATRIC: Alert and oriented -3. Appropriate affect. Intact judgment and insight. - Labs CBC & Chem 7: 11/15/20 07:12 11/15/20 07:12 Labs: Abnormal Lab Results - Last 24 Hours (Table) 11/15/20 11/15/20 11/15/20 Range/Units 12:15 17:19 20:06 POC Glucose (mg/dL) 253 H 378 H 365 H (75-99) mg/dL Lactate Dehydrogenase (313-618) U/L C-Reactive Protein (<10.0) mg/L 11/16/20 11/16/20 Range/Units 05:26 06:02 POC Glucose (mg/dL) 129 H (75-99) mg/dL Lactate Dehydrogenase 1261 H (313-618) U/L C-Reactive Protein 21.6 H (<10.0) mg/L Microbiology - Last 24 Hours (Table) 11/10/20 12:52 Blood Culture - Preliminary Blood No Growth after 120 hours Assessment and Plan Plan: 1. Acute hypoxic respiratory failure, significantly progressed the last 24 hours, and patient's oxygen demand went from 12 L nasal cannula. This is related to acute COVID 19 pneumonitis, and possibility of acute exacerbation of CHF Diastolic dysfunction. The patient currently is on ventilator that were able to wean him down to 7 L of oxygen by nasal cannula today. He remains on Decadron. He remains on Remdesivir #5 she still elevated, CRP is slightly improved comp ared to yesterday. Chest x-ray showing bilateral interstitial pulmonary infiltrates, essentially stable. 2. Recent admission for community-acquired pneumonia, from 10/28/2020 through 10/31/2020, patient was treated with Rocephin and azithromycin, discharged home on oral Ceftin 3. Chronic atrial fibrillation, on Eliquis, permanent pacemaker implantation 4. Coronary artery disease with previous bypass grafting 3 years ago 5. Chronic kidney disease stage III in point of an acute kidney injury and current creatinine is improving and is down to 1.48 and he remains on normal saline at the rate of 50 mL an hour. 6. Diabetes mellitus type 2 7. Hypertension 8. Nonsmoker 9. Diarrhea, improved Plan: Repeat the chest x-ra in a.m. and repeat inflammatory markers A.m. Clinically the same we were able to wean down the FiO2 down to 7 L to maintain a saturation of around 95% Continue to titrate down the FiO2 as tolerated Remdesivir #5, dexamethasone, Eliquis, vitamin supplement Increase his activity as tolerated, currently on 7-10 L of oxygen by nasal cannula. We will monitor his condition very closely. We'll continue to follow
[2020-11-16 11:56] LABS: Glucose,Whole Blood 170 mg/dL (75-99)
--- NOTE | 2020-11-16 11:58 | P.PN ---
Subjective Progress Note Date: 11/16/20 CHIEF COMPLAINT: Elevated troponins, acute pulmonary edema HISTORY OF PRESENT ILLNESS: 11/11/2020 This is a 84-year-old male with a past medical history significant for paroxysmal atrial fibrillation with previous cardioversion, permanent pacemaker insertion secondary to third-degree heart block, coronary artery disease with previous CABG 2 in 2000, diabetes mellitus, hypertension, hyperlipidemia, and congestive heart failure. Patient follows in the office with Dr. Gallardo. We have been asked to see the patient in consultation for elevated troponins. Patient presented to the emergency room with a chief complaint of shortness of breath. He was found to be positive for Covid 19. Patient is currently on 5 L nasal cannula with oxygen saturations greater than 92%. Blood pressure 104/56. Heart rate in the 50s and 60s. He is afebrile. 11/12/2020 Patient remains on 15 L high flow nasal cannula with oxygen saturations greater than 90%. Blood pressure 105/57. Heart rate in the 60s. Patient remains on IV Lasix. Creatinine increased to 2.41 today from 2.06. Echocardiogram completed revealed ejection fraction 55-60%, mild mitral regurgitation and mild tricuspid regurgitation. 11/13/2020 Patient remains on 15 L nasal cannula with oxygen saturations greater than 92%. Blood pressure 103/54. Heart rate in the 60s. Lasix was transitioned to 20 mg PO daily. Creatinine today is 2.0. Chest x-ray this morning reveals scattered infiltrates compatible with atypical pneumonia. 11/14/2020 Patient's oxygen has been weaned down to 9 L. He is maintaining oxygen saturations greater than 92%. Blood pressure 119/60. Heart rate in the 60s. He is afebrile. Creatinine 1.69. He remains on oral Lasix. 11/15: Patient was back up to 12 L nasal cannula during the night with pulse ox of 92-94%. He has been afebrile, heart rate in the 60s, blood pressure 120/60. BUN 58 and creatinine 1.48. Lopressor. Patient was started on Remdesivir by pulmonary medicine. 11/16: No new concerns. Patient remains in isolation for Covid 19. He has been afebrile, heart rate in the 60s, blood pressure 126/65. Pulse ox is 92-96% on 8 L nasal cannula. PHYSICAL EXAM: Thorough physical exam not completed secondary to limited evaluation/examination and due to Covid19 ASSESSMENT: Acute Covid 19 pneumonia Acute hypoxic respiratory failure, secondary to above Abnormal troponin, secondary to covid 19, no signs of acute coronary syndrome History of paroxysmal atrial fibrillation with previous cardioversion, on anticoagulation with Eliquis Acute kidney injury Chronic kidney disease Coronary artery disease with previous CABG 2000 Acute exacerbation of chronic diastolic congestive heart failure, EF 60-65% Hypertension Hyperlipidemia Diabetes mellitus PLAN: Continue current cardiac medications Accurate I&O Daily weights Monitor kidney function. Pulmonary following Cardiology will sign off and follow on an as-needed basis only. Please reconsult if any new concerns develop. Nurse practitioner note has been reviewed by physician. Signing provider agrees with the documented findings, assessment, and plan of care. Objective - Vital Signs Vital signs: Vital Signs Temp 97.6 F 11/16/20 03:46 Pulse 60 11/16/20 03:46 Resp 18 11/16/20 03:46 BP 126/65 11/16/20 03:46 Pulse Ox 92 L 11/16/20 03:46 Intake & Output 11/15/20 11/16/20 11/16/20 18:59 06:59 18:59 Intake Total 1340 540 240 Output Total 850 175 200 Balance 490 365 40 Weight 82 kg Intake: Oral 1340 540 240 Output: Urine 850 175 200 Other: Voiding Method Urinal # Voids 1 2 1 # Bowel Movements 1 - Labs CBC & Chem 7: 11/15/20 07:12 11/15/20 07:12 Labs: Abnormal Lab Results - Last 24 Hours (Table) 11/15/20 11/15/20 11/15/20 Range/Units 12:15 17:19 20:06 POC Glucose (mg/dL) 253 H 378 H 365 H (75-99) mg/dL Lactate Dehydrogenase (313-618) U/L C-Reactive Protein (<10.0) mg/L 11/16/20 11/16/20 11/16/20 Range/Units 05:26 06:02 11:53 POC Glucose (mg/dL) 129 H 170 H (75-99) mg/dL Lactate Dehydrogenase 1261 H (313-618) U/L C-Reactive Protein 21.6 H (<10.0) mg/L Microbiology - Last 24 Hours (Table) 11/10/20 12:52 Blood Culture - Preliminary Blood No Growth after 120 hours
[2020-11-16 16:49] LABS: Glucose,Whole Blood 237 mg/dL (75-99)
--- NOTE | 2020-11-16 17:02 | P.PN ---
Subjective Progress Note Date: 11/16/20 Principal diagnosis: Acute COVID-19 pneumonia Patient is a 84-year-old male with a known history paroxysmal atrial fibrillation, diabetes type 2, coronary artery disease with history of CABG and pacemaker placement who was recently admitted to the hospital for pneumonia and was discharged 10/31/2020 presented to ER with complaints of shortness of breath and diarrhea for the past 2 weeks. Patient states that he did complete his antibiotic course. Denied any complaints of abdominal pain. Patient has been having worsening shortness of breath and generalized weakness. Denied any fever or chills. No cough. No chest pain or palpitations. Patient felt very weak and tired. Denied any fall. No nausea or vomiting. Chest x-ray showed cardiomegaly with interstitial opacity, patchy bibasilar opacities and trace pleural effusions. Correlate for CHF with interstitial pulmonary edema. 11/14/2020 Patient is currently sitting the chair comfortably. No complaints of chest pain or worsening shortness of breath. On high flow oxygen at 9 L today. Patient has been afebrile. Currently being continued Lasix 40 mg daily, dexamethasone and remdesivir course. Pulmonary and cardiology is on board. Chest x-ray completed this morning showed scattered bilateral patchy areas of infiltrate superimposed on a background of COPD which are stable. Cardiology is following for elevated troponin and acute pulmonary edema and recommending to continue to monitor strict JEAN PIERRE's, daily weights, renal function and electrolytes 11/15/2020 patient is being seen for a follow-up on treatment for Covid 19 related pneumonia. The patient is an hypoxic respiratory failure and he was requiring oxygen at the higher flow. For instance, yesterday he was on 9 L and overnight the patient has been brought up to 10 L and currently is up to 12 L of oxygen by nasal cannula. Chest x-ray from yesterday was still showing bilateral pulmonary infiltrates consistent with pneumonia. There was bilateral patchy areas of infiltration in addition to underlying COPD. The patient is receiving combination of treatment, Decadron, day #4 of Remdesivir. His CRP was declining down to 34 and his LDH was 1215. His pro- calcitonin level was low. D-dimer was low. He remains on Lovenox 2.5 mg twice a day. Creatinine today is down to 1.48. Cardiology is following for elevated troponin and recommending to continue with current cardiac medications and monitor strict JEAN PIERRE's and daily weights along with renal function 11/16/2020 the patient is stable on 10 L of oxygen by nasal cannula. A follow-up chest x- ray was done yesterday as the patient's oxidation was gradually getting worse. The chest x-ray showed scattered bilateral pulmonary infiltrates, nonspecific, consistent with COVID 19 pneumonia. Pacemaker was in place. The patient currently is still on Decadron 6 mg by mouth daily. The patient is also receiving a course of Remdesivir he remains on IV fluid normal saline at the rate of 50cc/hour. The patient has an LDH which is at 1261, C-reactive protein is at 21. Progesterone level is at 0.1. The patient remains on Eliquis 2.5 mg by mouth daily Pulmonary is following and recommending to continue to wean FiO2 down to 7 L maintaining SpO2 greater than 95%; REM day #5; dexamethasone; vitamin supplements Objective - Vital Signs Vital signs: Vital Signs Temp 97.6 F 11/16/20 03:46 Pulse 60 11/16/20 03:46 Resp 18 11/16/20 03:46 BP 126/65 11/16/20 03:46 Pulse Ox 92 L 11/16/20 03:46 Intake & Output 11/15/20 11/16/20 11/16/20 18:59 06:59 18:59 Intake Total 1340 540 240 Output Total 850 175 200 Balance 490 365 40 Weight 82 kg Intake: Oral 1340 540 240 Output: Urine 850 175 200 Other: Voiding Method Urinal # Voids 1 2 1 # Bowel Movements 1 - Exam Patient is lying in the bed comfortably, no acute distress, awake alert and or iented.Generalized weakness and tired looking.. HEENT: Normocephalic. Neck is supple. Pupils reactive. Nostrils clear. Oral cavity is moist. Ears reveal no drainage. Neck reveals no JVD, carotid bruits, or thyromegaly. CHEST EXAMINATION: Trachea is central. Symmetrical expansion. Scattered coarse breath sounds throughout. No wheezing.. CARDIAC: Normal S1, S2 with no gallops. No murmurs ABDOMEN: Soft. Bowel sounds normal. No organomegaly. No abdominal bruits. Extremities: reveal no edema. No clubbing or cyanosis Neurologically awake, alert, oriented x3 with well-coordinated movements. No focal deficits noted Skin: No rash or skin lesions. Psychiatric: Coperative. Nonsuicidal Musculoskeletal: No joint swelling or deformity. Normal range of motion. - Labs CBC & Chem 7: 11/15/20 07:12 11/15/20 07:12 Labs: Abnormal Lab Results - Last 24 Hours (Table) 11/15/20 11/15/20 11/16/20 Range/Units 17:19 20:06 05:26 POC Glucose (mg/dL) 378 H 365 H (75-99) mg/dL Lactate Dehydrogenase 1261 H (313-618) U/L C-Reactive Protein 21.6 H (<10.0) mg/L 11/16/20 11/16/20 Range/Units 06:02 11:53 POC Glucose (mg/dL) 129 H 170 H (75-99) mg/dL Lactate Dehydrogenase (313-618) U/L C-Reactive Protein (<10.0) mg/L Microbiology - Last 24 Hours (Table) 11/10/20 12:52 Blood Culture - Preliminary Blood No Growth after 120 hours Assessment and Plan Assessment: Acute COVID-19 pneumonia Acute hypoxic respiratory failure requiring oxygen 8L via nasal cannula currently. Acute diarrhea likely due to viral infection. RuleD out C. difficile. Acute CHF with diastolic dysfunction Elevated troponin level due to demand mismatch Recent history of pneumonia and was discharged on 10/31/2020 Coronary artery disease history of bypass graft -Paroxysmal atrial fibrillation, chronically on anticoagulation -Diabetes mellitus type 2 on oral hypoglycemic, uncontrolled with hyperglycemia -acute kidney injury. pre renal and from cardiorenal syndrome. -Suspect underlying chronic kidney disease stage III from diabetic nephropathy and nephrosclerosis Plan: Patient will be continued oxygen supplementation and titrate down FiO2. on dexamethasone 6 mg daily. Patient is already on anticoagulation with Eliquis. Continue with vitamin supplementation and contact, droplet precautions.Patient was started remdesivir.Continue with oral Lasix. Monitor renal function. Cardiology and pulmonary is following. Prognosis guarded at this time.
[2020-11-16] MEDS: SODIUM CHLORIDE 0.9% 1,000 ML IV SCH (17:33)
[2020-11-16 20:19] LABS: Glucose,Whole Blood 338 mg/dL (75-99)
[2020-11-16] MEDS: ATORVASTATIN 10 MG TAB PO SCH (21:36)
[2020-11-17 06:13] LABS: Glucose,Whole Blood 230 mg/dL (75-99)
[2020-11-17] MEDS: INSULIN ASPART (NovoLOG) 100 UNIT/ML VIAL SQ SCH ×4 (06:42→21:16)
--- NOTE | 2020-11-17 07:22 | XR ---
EXAMINATION TYPE: XR chest 1V portable DATE OF EXAM: 11/17/2020 Comparison: 11/15/2020 Clinical History: 84-year-old male Covid Findings: Left anterior chest wall pacemaker generator with right atrial and right ventricular leads. Median st ernotomy wires with postoperative clips in the mediastinum. Leftward patient rotation ultrasound and normal cardiac and mediastinal contours. Heart upper limits of normal in size. Special and patchy per ipheral bilateral opacities persist without significant change. No significant pleural effusion. Impression: Continued diffuse interstitial and patchy bilateral peripheral infiltrates.
[2020-11-17 07:26] LABS: C Reactive Protein 21.6 mg/L (<10.0)
[2020-11-17] MEDS: ALBUTEROL HFA INHALER INHALATION PRN (07:26)
[2020-11-17] MEDS: APIXABAN 2.5 MG TABLET PO SCH ×2 (08:48→21:17)
[2020-11-17] MEDS: ASCORBIC ACID 500 MG TAB PO SCH (08:48)
[2020-11-17] MEDS: METOPROLOL TARTRATE 50 MG TAB PO SCH ×2 (08:48→21:17)
[2020-11-17] MEDS: ZINC SULFATE 220 MG CAP PO SCH (08:48)
[2020-11-17] MEDS: FUROSEMIDE 20 MG TAB PO SCH ×2 (08:48→17:58)
[2020-11-17] MEDS: MULTIVITAMINS, THERA 1 EACH TAB PO SCH (08:48)
[2020-11-17] MEDS: dexAMETHasone 2 MG TAB PO SCH (08:49)
[2020-11-17 11:35] LABS: Glucose,Whole Blood 309 mg/dL (75-99)
[2020-11-17] MEDS: COLCHICINE 0.6 MG EACH PO SCH ×2 (11:47→21:17)
--- NOTE | 2020-11-17 12:44 | P.PN ---
Subjective 84-year-old male with a known history paroxysmal atrial fibrillation, diabetes type 2, coronary artery disease with history of CABG and pacemaker placement who was recently admitted to the hospital for pneumonia and was discharged 10/31/2020 presented to ER with complaints of shortness of breath and diarrhea for the past 2 weeks. Patient states that he did complete his antibiotic course. Denied any complaints of abdominal pain. Patient has been having worsening shortness of breath and generalized weakness. Denied any fever or chills. No cough. No chest pain or palpitations. Patient felt very weak and tired. Denied any fall. No nausea or vomiting. Chest x-ray showed cardiomegaly with interstitial opacity, patchy bibasilar opacities and trace pleural effusions. Correlate for CHF with interstitial pulmonary edema. 11/14/2020 Patient is currently sitting the chair comfortably. No complaints of chest pain or worsening shortness of breath. On high flow oxygen at 9 L today. Patient has been afebrile. Currently being continued Lasix 40 mg daily, dexamethasone and remdesivir course. Pulmonary and cardiology is on board. Chest x-ray completed this morning showed scattered bilateral patchy areas of infiltrate superimposed on a background of COPD which are stable. Cardiology is following for elevated troponin and acute pulmonary edema and recommending to continue to monitor strict JEAN PIERRE's, daily weights, renal function and electrolytes 11/15/2020 patient is being seen for a follow-up on treatment for Covid 19 related pneumonia. The patient is an hypoxic respiratory failure and he was requiring oxygen at the higher flow. For instance, yesterday he was on 9 L and overnight the patient has been brought up to 10 L and currently is up to 12 L of oxygen by nasal cannula. Chest x-ray from yesterday was still showing bilateral pulmonary infiltrates consistent with pneumonia. There was bilateral patchy areas of infiltration in addition to underlying COPD. The patient is receiving combination of treatment, Decadron, day #4 of Remdesivir. His CRP was declining down to 34 and his LDH was 1215. His pro- calcitonin level was low. D-dimer was low. He remains on Lovenox 2.5 mg twice a day. Creatinine today is down to 1.48. Cardiology is following for elevated troponin and recommending to continue with current cardiac medications and monitor strict JEAN PIERRE's and daily weights along with renal function 11/16/2020 the patient is stable on 10 L of oxygen by nasal cannula. A follow-up chest x- ray was done yesterday as the patient's oxidation was gradually getting worse. The chest x-ray showed scattered bilateral pulmonary infiltrates, nonspecific, consistent with COVID 19 pneumonia[address] Pacemaker was in place. The patient currently is still on Decadron 6 mg by mouth daily. The patient is also receiving a course of Remdesivir he remains on IV fluid normal saline at the rate of 50cc/hour. The patient has an LDH which is at 1261, C-reactive protein is at 21. Progesterone level is at 0.1. The patient remains on Eliquis 2.5 mg by mouth daily Pulmonary is following and recommending to continue to wean FiO2 down to 7 L maintaining SpO2 greater than 95%; REM day #5; dexamethasone; vitamin supplements. 11/17/2020 She is presently on 6 L of oxygen continue to taper this down. Patient is getting IV fluids as well as Lasix late IV fluids and discontinued Lasix will be continued patient appears to have some diastolic dysfunction with mild acute exacerbation. Constitutional: Denied any fatigue denied any fever. Cardio vascular: denied any chest pain, palpitations Gastrointestinal denied any nausea vomiting Pulmonary: Denied any shortness of breath cough Neurologic denied any new focal deficits All inpatient medications were reviewed and appropriate changes in these medications as dictated in the interval history and assessment and plan. Objective - Vital Signs Vital signs: Vital Signs Temp 98.2 F 11/17/20 11:16 Pulse 60 11/17/20 11:16 Resp 18 11/17/20 11:16 BP 143/68 11/17/20 11:16 Pulse Ox 92 L 11/17/20 11:16 Intake & Output 11/16/20 11/17/20 11/17/20 18:59 06:59 18:59 Intake Total 800 240 Output Total 600 200 225 Balance 200 -200 15 Weight 83 kg Intake: Oral 800 240 Output: Urine 600 200 225 Other: Voiding Method Urinal Urinal # Voids 1 1 1 - Exam PHYSICAL EXAMINATION: GENERAL: The patient is alert and oriented x3, not in any acute distress. Well developed, well nourished. HEENT: Pupils are round and equally reacting to light. EOMI. No scleral icterus. No conjunctival pallor. Normocephalic, atraumatic. No pharyngeal erythema. No thyromegaly. CARDIOVASCULAR: S1 and S2 present. No murmurs, rubs, or gallops. PULMONARY: Chest is clear to auscultation, no wheezing or crackles. ABDOMEN: Soft, nontender, nondistended, normoactive bowel sounds. No palpable organomegaly. MUSCULOSKELETAL: No joint swelling or deformity. EXTREMITIES: No cyanosis, clubbing, or pedal edema. NEUROLOGICAL: Gross neurological examination did not reveal any focal deficits. SKIN: No rashes. Note: Because of COVID 19 isolation, some of the history and physical exam findings are indirect and obtained from nursing staff, and other physician examinations to avoid unnecessary contact with the patient. - Labs CBC & Chem 7: 11/15/20 07:12 11/15/20 07:12 Labs: Abnormal Lab Results - Last 24 Hours (Table) 11/16/20 11/16/20 11/17/20 Range/Units 16:46 20:18 06:11 D-Dimer (<0.60) mg/L FEU POC Glucose (mg/dL) 237 H 338 H 230 H (75-99) mg/dL Lactate Dehydrogenase (313-618) U/L C-Reactive Protein (<10.0) mg/L 11/17/20 11/17/20 11/17/20 Range/Units 06:48 06:48 11:33 D-Dimer 1.48 H (<0.60) mg/L FEU POC Glucose (mg/dL) 309 H (75-99) mg/dL Lactate Dehydrogenase 1278 H (313-618) U/L C-Reactive Protein 21.6 H (<10.0) mg/L Microbiology - Last 24 Hours (Table) 11/10/20 12:52 Blood Culture - Final Blood No Growth after 144 hours Assessment and Plan Plan: Acute COVID-19 pneumonia Acute hypoxic respiratory failure requiring oxygen 8L via nasal cannula currently. Acute diarrhea likely due to viral infection. RuleD out C. difficile. Acute CHF with diastolic dysfunction with acute exacerbation IV fluids were discontinued Elevated troponin level due to demand mismatch Recent history of pneumonia and was discharged on 10/31/2020 Coronary artery disease history of bypass graft -Paroxysmal atrial fibrillation, chronically on anticoagulation -Diabetes mellitus type 2 on oral hypoglycemic, uncontrolled with hyperglycemia -acute kidney injury. pre renal and from cardiorenal syndrome. -Suspect underlying chronic kidney disease stage III from diabetic nephropathy and nephrosclerosis
--- NOTE | 2020-11-17 15:02 | P.PN ---
Subjective Progress Note Date: 11/17/20 84-year-old male patient of Dr. Coreas has medical history of atrial fibrillation, diabetes mellitus type 2, coronary artery disease status post coronary artery bypass grafting 3 years ago, hx of myocardial infarction, nonsmoker, and a permanent pacemaker implantation, who was recently hospitalized on 10/28/2020 through 10/31/2020 for acute right lower lobe pneumonia, community-acquired pneumonia, treated with azithromycin and Rocephin. Patient was discharged home on Ceftin. After going home he developed diarrhea, and in last 5-7 days his breathing was also becoming more labored, denied any fever or chills, he is normally not oxygen dependent, he came into the emergency department ending of increased shortness of breath, weakness. Chest pain, chest discomfort, no palpitations, no fever chills. X-ray showed cardiomegaly with interstitial opacity, patchy bibasilar opacities and trace pleural effusions. His COVID 19 PCR was found to be positive, he also had increased at 6000, troponin leak to 0.08. Influenza and RSV were negative. White blood cell count 8.9, hemoglobin 9.2, down to 0.8, INR is 1.2, d-dimer is 0.45, creatinine 1.84. Patient initially was started on oral Decadron for COVID 19 related pneumonitis, however his oxygenation continued to deteriorate and increased from 4 liters of nasal cannula to 15 L in 24 hours. His O2 sat is 90-93%, he is feeling more short of breath, his been afebrile, blood pressure has been stable, on oral Decadron, he continues to get IV Lasix 20 mg every 8 hours, his fluid balance is difficult to estimate, the patient is refusing an indwelling catheter, and he is incontinent into brief. Is down by 0.5 kg in the last 24 hours, no evidence of significant lower extremity edema, no truncal edema. On 11/13/2020 patient seen in follow-up unit, he is currently on 15 L of oxygen his pulse ox is 98%, he is mildly short of breath with exertion, denies any cough, denies any phlegm production, no chest discomfort, no palpitations. Apparently last night patient was more short of breath after an episode of to incontinence, and he became upset about it, and more short of breath and required BiPAP support. He is off BiPAP support right now, his FiO2 down to 12 L, and pulse ox remained at 96, no worsening dyspnea, and FiO2 will be turned out to 10 L. Afebrile, hemodynamically he stable, this is day 2 of his Remdesivir treatment, on oral Lasix, on Decadron 6 mg daily. On home dose of Eliquis 2.5 mg twice daily, today's d-dimer is 0.84, pro calcitonin level was at 0.10, and inflammatory markers are improving. Plan 11/17/2020 patient seen in follow-up on selective care unit, he is resting comfortably in bed, he is currently on 5 L pulse ox is 93%, when we ask him how his breathing has been, patient states it is okay, seems to be breathing comfortably, no cough, no chest discomfort, his been afebrile. His chest x-ray today showed continued diffuse interstitial and patchy bilateral peripheral infiltrates. Clinically the patient has been stable, no worsening dyspnea, she remains on oral Decadron 6 mg daily, he is on oral Eliquis on the regular basis, he has completed a course of Remdesivir. His chest x-ray suggests possibility of fluid overload, we'll add oral Lasix. Objective - Vital Signs Vital signs: Vital Signs Temp 98.2 F 11/17/20 11:16 Pulse 60 11/17/20 13:58 Resp 18 11/17/20 13:58 BP 143/68 11/17/20 11:16 Pulse Ox 83 L 11/17/20 11:19 Intake & Output 11/16/20 11/17/20 11/17/20 18:59 06:59 18:59 Intake Total 800 480 Output Total 600 200 425 Balance 200 -200 55 Weight 83 kg Intake: Oral 800 480 Output: Urine 600 200 425 Other: Voiding Method Urinal Urinal # Voids 1 1 1 - Exam GENERAL EXAM: Alert, very pleasant, 84-year-old white male, on 5 L of oxygen and the pulse ox of 93%, comfortable in no apparent distress. HEAD: Normocephalic/atraumatic. EYES: Normal reaction of pupils, equal size. Conjunctiva pink, sclera white. NOSE: Clear with pink turbinates. THROAT: No erythema or exudates. NECK: No masses, no JVD, no thyroid enlargement, no adenopathy. CHEST: No chest wall deformity. Symmetrical expansion. LUNGS: Equal air entry with no crackles, wheeze, rhonchi or dullness. CVS: Regular rate and rhythm, normal S1 and S2, no gallops, no murmurs, no rubs ABDOMEN: Soft, nontender. No hepatosplenomegaly, normal bowel sounds, no guarding or rigidity. EXTREMITIES: No clubbing, no edema, no cyanosis, 2+ pulses and upper and lower extremities. MUSCULOSKELETAL: Muscle strength and tone normal. SPINE: No scoliosis or deformity SKIN: No rashes CENTRAL NERVOUS SYSTEM: Alert and oriented -3. No focal deficits, tone is normal in all 4 extremities. PSYCHIATRIC: Alert and oriented -3. Appropriate affect. Intact judgment and insight. - Labs CBC & Chem 7: 11/15/20 07:12 11/15/20 07:12 Labs: Abnormal Lab Results - Last 24 Hours (Table) 11/16/20 11/16/20 11/17/20 Range/Units 16:46 20:18 06:11 D-Dimer (<0.60) mg/L FEU POC Glucose (mg/dL) 237 H 338 H 230 H (75-99) mg/dL Lactate Dehydrogenase (313-618) U/L C-Reactive Protein (<10.0) mg/L 11/17/20 11/17/20 11/17/20 Range/Units 06:48 06:48 11:33 D-Dimer 1.48 H (<0.60) mg/L FEU POC Glucose (mg/dL) 309 H (75-99) mg/dL Lactate Dehydrogenase 1278 H (313-618) U/L C-Reactive Protein 21.6 H (<10.0) mg/L Microbiology - Last 24 Hours (Table) 11/10/20 12:52 Blood Culture - Final Blood No Growth after 144 hours Assessment and Plan Plan: Assessment #1.Acute hypoxic respiratory failure, significantly progressed the last 24 hours, and patient's oxygen demand went from 4 L nasal cannula to 15 L nasal cannula. This is related to acute COVID 19 pneumonitis, and possibility of acute exacerbation of CHF with diastolic dysfunction #2. Recent admission for community-acquired pneumonia, from 10/28/2020 through 10/31/2020, patient was treated with Rocephin and azithromycin, discharged home on oral Ceftin #3. Chronic atrial fibrillation, on Eliquis, permanent pacemaker implantation #4. Coronary artery disease with previous bypass grafting 3 years ago #5. Chronic kidney disease stage III #6. Diabetes mellitus type 2 #7. Hypertension #8. Nonsmoker #9. Diarrhea, improved Plan: Today's chest x-ray has been reviewed, suggesting possibility of fluid overload, in addition to COVID19 pneumonia. We will add oral Lasix 20 mg twice daily, continue with Decadron, continue with oral Eliquis, vital signs have been stable, FiO2 is down to 5 L, continue to wean FiO2 to keep O2 sat at or above 90%. LDH is relatively stable has trended up some, but CRP is down significantly from admission. No fever or chills, encouraged the patient to increase activity as tolerated, sitting up in the chair, using incentive spirometer. I performed a history & physical examination of the patient and discussed their management with my nurse practitioner, Yvette Rico. I reviewed the nurse practitioner's note and agree with the documented findings and plan of care. Lung sounds are positive for crackles bilaterally The findings and the im pression was discussed with the patient. I attest to the documentation by the nurse practitioner. Time with Patient: Less than 30
[2020-11-17 16:47] LABS: Glucose,Whole Blood 301 mg/dL (75-99)
[2020-11-17 20:34] LABS: Glucose,Whole Blood 331 mg/dL (75-99)
[2020-11-17] MEDS: ATORVASTATIN 10 MG TAB PO SCH (21:17)
[2020-11-18 06:09] LABS: Glucose,Whole Blood 186 mg/dL (75-99)
[2020-11-18] MEDS: INSULIN ASPART (NovoLOG) 100 UNIT/ML VIAL SQ SCH ×3 (06:30→14:58)
[2020-11-18 08:05] LABS: Calcium 8.6 mg/dL (8.4-10.2); Potassium 4.2 mmol/L (3.5-5.1)
[2020-11-18] MEDS: ALBUTEROL HFA INHALER INHALATION PRN (08:45)
[2020-11-18] MEDS: MULTIVITAMINS, THERA 1 EACH TAB PO SCH (09:04)
[2020-11-18] MEDS: ASCORBIC ACID 500 MG TAB PO SCH (09:04)
[2020-11-18] MEDS: COLCHICINE 0.6 MG EACH PO SCH (09:04)
[2020-11-18] MEDS: dexAMETHasone 2 MG TAB PO SCH (09:04)
[2020-11-18] MEDS: METOPROLOL TARTRATE 50 MG TAB PO SCH (09:05)
[2020-11-18] MEDS: FUROSEMIDE 20 MG TAB PO SCH (09:05)
[2020-11-18] MEDS: APIXABAN 2.5 MG TABLET PO SCH (09:05)
[2020-11-18] MEDS: ZINC SULFATE 220 MG CAP PO SCH (09:05)
[2020-11-18 10:52] VITALS: TEMP 98.3
--- NOTE | 2020-11-18 11:14 | P.DS ---
Providers Date of admission: 11/10/20 15:37 Attending physician: Carlos Burgos MD Consults: 11/10/20 15:37 Consult Physician Routine Consulting Provider: [facility] Consult Reason/Comments: Elevated troponin, acute pulmonary edema Do you want consulting provider notified?: Yes 11/11/20 16:59 Consult Physician Routine Consulting Provider: Carlos Cerrato Consult Reason/Comments: COVID-19 Do you want consulting provider notified?: Yes, Notify in am Primary care physician: Shoaib Bess [facility] Course: 84-year-old male with a known history paroxysmal atrial fibrillation, diabetes type 2, coronary artery disease with history of CABG and pacemaker placement who was recently admitted to the hospital for pneumonia and was discharged 10/31/2020 presented to ER with complaints of shortness of breath and diarrhea for the past 2 weeks. Patient states that he did complete his antibiotic course. Denied any complaints of abdominal pain. Patient has been having worsening shortness of b reath and generalized weakness. Denied any fever or chills. No cough. No chest pain or palpitations. Patient felt very weak and tired. Denied any fall. No nausea or vomiting. Chest x-ray showed cardiomegaly with interstitial opacity, patchy bibasilar opacities and trace pleural effusions. Correlate for CHF with interstitial pulmonary edema. 11/14/2020 Patient is currently sitting the chair comfortably. No complaints of chest pain or worsening shortness of breath. On high flow oxygen at 9 L today. Patient has been afebrile. Currently being continued Lasix 40 mg daily, dexamethasone and remdesivir course. Pulmonary and cardiology is on board. Chest x-ray completed this morning showed scattered bilateral patchy areas of infiltrate superimposed on a background of COPD which are stable. Cardiology is following for elevated troponin and acute pulmonary edema and recommending to continue to monitor strict JEAN PIERRE's, daily weights, renal function and electrolytes 11/15/2020 patient is being seen for a follow-up on treatment for Covid 19 related pneumonia. The patient is an hypoxic respiratory failure and he was requiring oxygen at the higher flow. For instance, yesterday he was on 9 L and overnight the patient has been brought up to 10 L and currently is up to 12 L of oxygen by nasal cannula. Chest x-ray from yesterday was still showing bilateral pulmonary infiltrates consistent with pneumonia. There was bilateral patchy areas of infiltration in addition to underlying COPD. The patient is receiving combination of treatment, Decadron, day #4 of Remdesivir. His CRP was declining down to 34 and his LDH was 1215. His pro- calcitonin level was low. D-dimer was low. He remains on Lovenox 2.5 mg twice a day. Creatinine today is down to 1.48. Cardiology is following for elevated troponin and recommending to continue with current cardiac medications and monitor strict JEAN PIERRE's and daily weights along with renal function 11/16/2020 the patient is stable on 10 L of oxygen by nasal cannula. A follow-up chest x- ray was done yesterday as the patient's oxidation was gradually getting worse. The chest x-ray showed scattered bilateral pulmonary infiltrates, nonspecific, consistent with COVID 19 pneumonia. Pacemaker was in place. The patient currently is still on Decadron 6 mg by mouth daily. The patient is also receiving a course of Remdesivir he remains on IV fluid normal saline at the rate of 50cc/hour. The patient has an LDH which is at 1261, C-reactive protein is at 21. Progesterone level is at 0.1. The patient remains on Eliquis 2.5 mg by mouth daily Pulmonary is following and recommending to continue to wean FiO2 down to 7 L maintaining SpO2 greater than 95%; REM day #5; dexamethasone; vitamin supplements. 11/17/2020 She is presently on 6 L of oxygen continue to taper this down. Patient is getting IV fluids as well as Lasix late IV fluids and discontinued Lasix will be continued patient appears to have some diastolic dysfunction with mild acute exacerbation. 11/18/2020 patient is presently on 4 L of oxygen and will require home oxygen and the amoxicillin can be tapered down. Patient blood sugars are bit elevated secondary to Decadron increased his glipizide to 20 mg twice a day until done with Decadron patient has 3 more days left for completion of Decadron. - Exam PHYSICAL EXAMINATION: GENERAL: The patient is alert and oriented x3, not in any acute distress. Well developed, well nourished. HEENT: Pupils are round and equally reacting to light. EOMI. No scleral icterus. No conjunctival pallor. Normocephalic, atraumatic. No pharyngeal erythema. No thyromegaly. CARDIOVASCULAR: S1 and S2 present. No murmurs, rubs, or gallops. PULMONARY: Chest is clear to auscultation, no wheezing or crackles. ABDOMEN: Soft, nontender, nondistended, normoactive bowel sounds. No palpable organomegaly. MUSCULOSKELETAL: No joint swelling or deformity. EXTREMITIES: No cyanosis, clubbing, or pedal edema. NEUROLOGICAL: Gross neurological examination did not reveal any focal deficits. SKIN: No rashes. Note: Because of COVID 19 isolation, some of the history and physical exam findings are indirect and obtained from nursing staff, and other physician examinations to avoid unnecessary contact with the patient. Assessment and Plan Plan: Acute COVID-19 pneumonia Acute hypoxic respiratory failure requiring oxygen 4L via nasal cannula currently. Require home oxygen Acute diarrhea likely due to viral infection. RuleD out C. difficile. 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 Plan - Discharge Summary Discharge Rx Participant: Yes New Discharge Prescriptions: No Action glipiZIDE [Glucotrol] 10 mg PO AC-BRKFST Simvastatin [Zocor] 20 mg PO HS Multivitamins, Thera [Multivitamin (formulary)] 1 tab PO DAILY Metoprolol Tartrate [Lopressor] 50 mg PO BID Furosemide [Lasix] 20 mg PO DAILY Apixaban [Eliquis] 2.5 mg PO BID #60 tablet amLODIPine [Norvasc] 10 mg PO DAILY #30 tab Discharge Medication List Furosemide [Lasix] 20 mg PO DAILY 10/28/20 [History] Metoprolol Tartrate [Lopressor] 50 mg PO BID 10/28/20 [History] Multivitamins, Thera [Multivitamin (formulary)] 1 tab PO DAILY 10/28/20 [History] Simvastatin [Zocor] 20 mg PO HS 10/28/20 [History] Apixaban [Eliquis] 2.5 mg PO BID #60 tablet 10/31/20 [Rx] Ascorbic Acid [Vitamin C] 500 mg PO DAILY #30 tab 11/18/20 [Rx] Zinc Sulfate [Orazinc] 220 mg PO DAILY #20 cap 11/18/20 [Rx] dexAMETHasone [Hexadrol] 6 mg PO DAILY #3 tab 11/18/20 [Rx] glipiZIDE [Glucotrol] 10 mg PO AC-BRKFST #0 11/18/20 [Rx] Follow up Appointment(s)/Referral(s): Shoaib Bess DO [Primary Care Provider] - 1-2 days [facility] Nurse, [NON-STAFF] - 1-2 Days
[2020-11-18 12:11] VITALS: BP 138/66; PULSE 81; RESP 20
[2020-11-18 12:32] LABS: Glucose,Whole Blood 250 mg/dL (75-99)
--- NOTE | 2020-11-18 15:41 | P.PN ---
Subjective Progress Note Date: 11/18/20 84-year-old male patient of Dr. Coreas has medical history of atrial fibrillation, diabetes mellitus type 2, coronary artery disease status post coronary artery bypass grafting 3 years ago, hx of myocardial infarction, nonsmoker, and a permanent pacemaker implantation, who was recently hospitalized on 10/28/2020 through 10/31/2020 for acute right lower lobe pneumonia, community-acquired pneumonia, treated with azithromycin and Rocephin. Patient was discharged home on Ceftin. After going home he developed diarrhea, and in last 5-7 days his breathing was also becoming more labored, denied any fever or chills, he is normally not oxygen dependent, he came into the emergency department ending of increased shortness of breath, weakness. Chest pain, chest discomfort, no palpitations, no fever chills. X-ray showed cardiomegaly with interstitial opacity, patchy bibasilar opacities and trace pleural effusions. His COVID 19 PCR was found to be positive, he also had increased at 6000, troponin leak to 0.08. Influenza and RSV were negative. White blood cell count 8.9, hemoglobin 9.2, down to 0.8, INR is 1.2, d-dimer is 0.45, creatinine 1.84. Patient initially was started on oral Decadron for COVID 19 related pneumonitis, however his oxygenation continued to deteriorate and increased from 4 liters of nasal cannula to 15 L in 24 hours. His O2 sat is 90-93%, he is feeling more short of breath, his been afebrile, blood pressure has been stable, on oral Decadron, he continues to get IV Lasix 20 mg every 8 hours, his fluid balance is difficult to estimate, the patient is refusing an indwelling catheter, and he is incontinent into brief. Is down by 0.5 kg in the last 24 hours, no evidence of significant lower extremity edema, no truncal edema. On 11/13/2020 patient seen in follow-up unit, he is currently on 15 L of oxygen his pulse ox is 98%, he is mildly short of breath with exertion, denies any cough, denies any phlegm production, no chest discomfort, no palpitations. Apparently last night patient was more short of breath after an episode of to incontinence, and he became upset about it, and more short of breath and required BiPAP support. He is off BiPAP support right now, his FiO2 down to 12 L, and pulse ox remained at 96, no worsening dyspnea, and FiO2 will be turned out to 10 L. Afebrile, hemodynamically he stable, this is day 2 of his Remdesivir treatment, on oral Lasix, on Decadron 6 mg daily. On home dose of Eliquis 2.5 mg twice daily, today's d-dimer is 0.84, pro calcitonin level was at 0.10, and inflammatory markers are improving. Plan 11/17/2020 patient seen in follow-up on selective care unit, he is resting comfortably in bed, he is currently on 5 L pulse ox is 93%, when we ask him how his breathing has been, patient states it is okay, seems to be breathing comfortably, no cough, no chest discomfort, his been afebrile. His chest x-ray today showed continued diffuse interstitial and patchy bilateral peripheral infiltrates. Clinically the patient has been stable, no worsening dyspnea, she remains on oral Decadron 6 mg daily, he is on oral Eliquis on the regular basis, he has completed a course of Remdesivir. His chest x-ray suggests possibility of fluid overload, we'll add oral Lasix. On 11/18/2020 patient seen in follow-up on selective care unit, he is resting comfortably in bed, denies any acute distress, he is currently on 4 L of oxygen a pulse ox of 94%, his been afebrile, vital signs have been stable, no chest discomfort, no phlegm production no palpitations. He has completed his course of Remdesivir, he remains on oral Decadron, yesterday we put him on oral Lasix twice daily, he has diabetes, he is in negative fluid balance. These labs showed slight worsening of his creatinine up to 1.64 from 1.48, and we'll cut back the dose of Lasix to once daily and that his home dose of Lasix. Clinically patient has been stable, no fever or chills, breathing comfortably. Patient is on oral Eliquis for history of paroxysmal atrial fibrillation. No acute events overnight. Patient is being discharged home today Objective - Vital Signs Vital signs: Vital Signs Temp 98.3 F 11/18/20 08:00 Pulse 81 11/18/20 12:00 Resp 20 11/18/20 12:00 BP 138/66 11/18/20 12:00 Pulse Ox 94 L 11/18/20 12:00 Intake & Output 11/17/20 11/18/20 11/18/20 18:59 06:59 18:59 Intake Total 1560 Output Total 1025 611 Balance 535 -611 Weight 79 kg Intake: Oral 1560 Output: Urine 1025 611 Other: Voiding Method Urinal Urinal # Voids 1 1 3 # Bowel Movements 1 0 - Exam GENERAL EXAM: Alert, very pleasant, 84-year-old white male, on 4 L of oxygen and the pulse ox of 93%, comfortable in no apparent distress. HEAD: Normocephalic/atraumatic. EYES: Normal reaction of pupils, equal size. Conjunctiva pink, sclera white. NOSE: Clear with pink turbinates. THROAT: No erythema or exudates. NECK: No masses, no JVD, no thyroid enlargement, no adenopathy. CHEST: No chest wall deformity. Symmetrical expansion. LUNGS: Equal air entry with no crackles, wheeze, rhonchi or dullness. CVS: Regular rate and rhythm, normal S1 and S2, no gallops, no murmurs, no rubs ABDOMEN: Soft, nontender. No hepatosplenomegaly, normal bowel sounds, no guarding or rigidity. EXTREMITIES: No clubbing, no edema, no cyanosis, 2+ pulses and upper and lower extremities. MUSCULOSKELETAL: Muscle strength and tone normal. SPINE: No scoliosis or deformity SKIN: No rashes CENTRAL NERVOUS SYSTEM: Alert and oriented -3. No focal deficits, tone is normal in all 4 extremities. PSYCHIATRIC: Alert and oriented -3. Appropriate affect. Intact judgment and insight. - Labs CBC & Chem 7: 11/15/20 07:12 11/18/20 07:01 Labs: Abnormal Lab Results - Last 24 Hours (Table) 11/17/20 11/17/20 11/18/20 Range/Units 16:46 20:32 05:49 BUN (9-20) mg/dL Creatinine (0.66-1.25) mg/dL Glucose (74-99) mg/dL POC Glucose (mg/dL) 301 H 331 H 186 H (75-99) mg/dL 11/18/20 11/18/20 Range/Units 07:01 12:31 BUN 57 H (9-20) mg/dL Creatinine 1.64 H (0.66-1.25) mg/dL Glucose 194 H (74-99) mg/dL POC Glucose (mg/dL) 250 H (75-99) mg/dL Assessment and Plan Plan: Assessment #1.Acute hypoxic respiratory failure, significantly progressed the last 24 hours, and patient's oxygen demand went from 4 L nasal cannula to 15 L nasal cannula. This is related to acute COVID 19 pneumonitis, and possibility of acute exacerbation of CHF with diastolic dysfunction #2. Recent admission for community-acquired pneumonia, from 10/28/2020 through 10/31/2020, patient was treated with Rocephin and azithromycin, discharged home on oral Ceftin #3. Chronic atrial fibrillation, on Eliquis, permanent pacemaker implantation #4. Coronary artery disease with previous bypass grafting 3 years ago #5. Chronic kidney disease stage III #6. Diabetes mellitus type 2 #7. Hypertension #8. Nonsmoker #9. Diarrhea, improved Plan: No worsening dyspnea, signs have been stable, no fever or chills, FiO2, currently down to 4 L, no acute events overnight, he has completed his course of Remdesivir, he continues on oral Decadron, he is being discharged home today on home oxygen, we'll cut back his dose of Lasix to once daily. Clinically stable, he continues on oral anticoagulation, stable for discharge home from pulmonary perspective. Outpatient follow-up with Dr. Cerrato in the office in 7-10 days I performed a history & physical examination of the patient and discussed their management with my nurse practitioner, Yvette Rico. I reviewed the nurse practitioner's note and agree with the documented findings and plan of care. L zainab sounds are positive for crackles bilaterally The findings and the impression was discussed with the patient. I attest to the documentation by the nurse practitioner. Time with Patient: Less than 30
[2020-11-19] MEDS ORDERED: FUROSEMIDE 20 MG TAB PO SCH (09:00)
== END 2020-11-18 17:21 | disposition home or self-care (01) | DRG 177 ==
LOC: EC 11:52 → 3SCARD 15:37
PROVIDERS: ADMIT Internal Medicine; ATTEND Internal Medicine
PROC: XW033E5 Introduction of Remdesivir Anti-infective into Peripheral Vein, Percutaneous Approach, New Technology Group 5 (ICD-10-PCS; principal; 2020-11-12)
PROC: 5A09357 Assistance with Respiratory Ventilation, Less than 24 Consecutive Hours, Continuous Positive Airway Pressure (ICD-10-PCS; principal; 2020-11-12)
DX: U07.1 COVID-19 (principal); J12.82 Pneumonia due to coronavirus disease 2019; J96.01 Acute respiratory failure with hypoxia; I50.33 Acute on chronic diastolic (congestive) heart failure; I21.A1 Myocardial infarction type 2; N17.9 Acute kidney failure, unspecified; J44.0 Chronic obstructive pulmonary disease with (acute) lower respiratory infection; I48.0 Paroxysmal atrial fibrillation; I25.10 Atherosclerotic heart disease of native coronary artery without angina pectoris; A08.4 Viral intestinal infection, unspecified; E11.65 Type 2 diabetes mellitus with hyperglycemia; T38.0X5A Adverse effect of glucocorticoids and synthetic analogues, initial encounter; N18.30 Chronic kidney disease, stage 3 unspecified; I12.9 Hypertensive chronic kidney disease with stage 1 through stage 4 chronic kidney disease, or unspecified chronic kidney disease; E78.5 Hyperlipidemia, unspecified; E11.22 Type 2 diabetes mellitus with diabetic chronic kidney disease; R32 Unspecified urinary incontinence; Z79.01 Long term (current) use of anticoagulants; Z79.84 Long term (current) use of oral hypoglycemic drugs; Z79.899 Other long term (current) drug therapy; Z87.01 Personal history of pneumonia (recurrent); Z95.1 Presence of aortocoronary bypass graft; Z95.0 Presence of cardiac pacemaker; I25.2 Old myocardial infarction; Z82.49 Family history of ischemic heart disease and other diseases of the circulatory system
CPT/HCPCS: 36415; 71045; 71046; 80048; 80053; 82728; 83605; 83615; 83735; 83880; 84145; 84484; 85025; 85027; 85379; 85610; 85730; 86140; 87040; 87636; 93005; 93308; 94640; 94660; 94760; 96361; 96374; 96376; 99291